=== PATIENT | female | born 1995 | race Caucasian/White ===

== ENCOUNTER 2019-01-09 12:50 | Inpatient (IN) | payer OTHER ==
--- NOTE | 2019-01-09 13:05 | EDPHY ---
H & P Source: Patient, RN/MD Exam Limitations: Clinical condition - Medical/Surgical History Hx Asthma: No Hx Chronic Respiratory Disease: No Hx Diabetes: No Hx Cardiac Disease: No Hx Renal Disease: No Hx Cirrhosis: No Hx Alcoholism: No Hx HIV/AIDS: No Hx Splenectomy or Spleen Trauma: No Other PMH: PTSD, schizoaffective - Social History Smoking Status: Never smoked Time Seen by Provider: 01/09/19 13:05 HPI/ROS: HPI: This is a 23-year-old female who presents with Chief Complaint: Psychosis, M1 hold Location: psych Quality: Psychosis, M1 hold Duration: Unknown Signs and Symptoms: + auditory hallucinations, + visual hallucinations, no suicidal ideation with a plan, no homicidal ideation, + paranoia Timing: Acute on chronic Severity: Severe Context: Patient has a history of schizoaffective disorder and PTSD presents on M1 hold from [facility] with complaints of paranoia, hallucinations, and being gravely disabled. Patient is prescribed to take Seroquel and lithium and admits to noncompliance. Patient reports that she is the "best Dr. Around and that her heart is on the right side and not the left side like other people." She is having delusions that things are present that is not witnessed by other people. Modifying Factors: None Comment: ROS: A comprehensive 10 system review of systems is otherwise negative aside from elements mentioned in the history of present illness. MEDICAL/SURGICAL/SOCIAL HISTORY: Medical history: PTSD, schizoaffective disorder Surgical history: Tonsillectomy, adenoidectomy Social history: Denies alcohol, drug, tobacco use. Unemployed. Family history noncontributory. CONSTITUTIONAL: Well-developed, well-nourished, cooperative, young adult white female, awake and alert, no obvious distress HEENT: Atraumatic and normocephalic, PERRL, EOMI. Nares patent; no rhinorrhea; no nasal mucosal edema. Tympanic membranes clear. Oropharynx clear, no exudate and moist pink mucosa. Airway patent. No lymphadenopathy. No meningismus. Cardiovascular: Normal S1/S2, regular rate, regular rhythm, without murmur rub or gallop. PULMONARY/CHEST: Symmetrical and nontender. Clear to auscultation bilaterally. Good air movement. No accessory muscle usage. ABDOMEN: Soft, nondistended, nontender, no rebound, no guarding, no peritoneal signs, no masses or organomegaly. No CVAT. EXTREMITIES: 2/2 pulses, strength 5/5, no deformities, no clubbing, no cyanosis or edema. NEUROLOGICAL: no focal neuro deficits. GCS 15. SKIN: Warm and dry, no erythema. no rash. Good capillary refill. PSYCH: Fair eye contact, + flight of ideas, tangential disorganized thought process, poor insight and judgment, + auditory hallucinations, + visual hallucinations, no suicidal ideation with a plan, no homicidal ideation, + paranoia (Miriam Wallis) Constitutional: Initial Vital Signs Temperature (C) 36.8 C 01/09/19 13:08 Heart Rate 81 01/09/19 13:08 Respiratory Rate 16 01/09/19 13:08 Blood Pressure 109/83 H 01/09/19 13:08 O2 Sat (%) 96 01/09/19 13:08 O2 Delivery Mode Room Air Allergies/Adverse Reactions: No Known Allergies Allergy (Unverified 06/24/18 15:12) Home Medications: Medication Instructions Recorded Coker Carbonate ER [Lithobid 300 900 mg PO DAILY 01/09/19 mg (*)] Quetiapine Fumarate [Seroquel] 800 mg PO DAILY 01/09/19 Medical Decision Making ED Course/Re-evaluation: Agree with M1 hold. Labs and UDS ordered. Given Zyprexa 10 mg. 1415: Urine drug screen negative. Labs reviewed and grossly unremarkable. Medically clear for mental health evaluation. 1500: Notified by mental health that patient would benefit from inpatient psychiatric admission. They are currently looking for placement. 1714: End of Shift. Signed over to Dr. Flynn pending placement. This patient was seen under the supervision of my secondary supervising physician. I evaluated care for this patient with attending. Discussed this patient with Dr. Flynn. (Miriam Wallis) 3:00 p.m. The patient has been evaluated by Mental Health. They agree with the hold that has already been placed. They will begin looking for placement. Patient has been medically cleared. 5:30 p.m. the patient has been accepted to [address] [place] [address] Sorenson. Transfer paperwork completed. (Ady Flynn) Differential Diagnosis: Differential diagnosis includes but is not limited to major depression, anxiety disorder, schizophrenia, bipolar disorder, intoxicant use, suicidal ideation, psychosis, carol. (Miriam Wallis) - Data Points Laboratory Results: Laboratory Results 01/09/19 13:35 01/09/19 13:35 Medications Given: Quetiapine Fumarate (Seroquel) 100 mg PO BID KARELY Stop: 07/08/19 20:59 Last Admin: 01/10/19 09:38 Dose: 100 mg Discontinued Medications Coker Carbonate (Lithobid) 300 mg PO BID KARELY Stop: 07/09/19 08:59 Last Admin: 01/10/19 09:38 Dose: 300 mg Olanzapine (Zyprexa Zydis) 10 mg PO EDNOW ONE Stop: 01/09/19 13:21 Last Admin: 01/09/19 18:31 Dose: 10 mg Departure - Departure Disposition: [facility] IP Clinical Impression: Schizoaffective psychosis Qualifiers: Schizoaffective disorder type: bipolar Qualified Code(s): F25.0 - Schizoaffective disorder, bipolar type Condition: Fair
[2019-01-09] MEDS ORDERED: OLANZapine DISINTEGR 5 MG TAB PO ONE (13:20)
[2019-01-09 13:58] LABS: PLATELET COUNT 239 10^3/uL (150-400)
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
--- NOTE | 2019-01-09 16:40 | ASMTTCLDSP ---
TLC Discharge Disposition Disposition: Answers: Transfer Disposition Notes: Notes: In consultation with [facility] ED physician, Ady Flynn MD, and on-call clinician, Live Leggett both concurred that pt appears to meet 27-65 criteria requiring psychiatric hospitalization as pt appears to be an imminent risk of harm to others/gravely disabled due to a mental illness condition. Pt was given the prohibited belongings list while in the ED. Discharge Concerns/Recommendations: Notes: Pt admitted to [facility] For inpatient Live Leggett AP[facility] admission, the following psychiatrist agreed to accept patient for admission to [facility] Type of Hold: Answers: M1/72-hour Hold Hold initiated by: Answers: Psychiatrist Date Signed: 01/09/2019 04:39 PM Electronically Signed By:Richelle Boyd
[2019-01-09] MEDS ORDERED: OLANZapine DISINTEGR 5 MG TAB ONE (18:23)
[2019-01-09] MEDS ORDERED: OLANZapine DISINTEGR 10 MG TAB PO PRN (20:50)
[2019-01-09] MEDS ORDERED: MAG HYDROX/AL HYDROX/SIMETH 30 ML UDCUP PO PRN (20:50)
[2019-01-09] MEDS ORDERED: MAGNESIUM HYDROXIDE 30 ML UDCUP PO PRN (20:50)
[2019-01-09] MEDS: QUEtiapine FUMARATE 100 MG TAB PO SCH (21:31)
--- NOTE | 2019-01-09 23:34 | GHP ---
[f rep st] HISTORY AND PHYSICAL DATE OF ADMISSION: 01/09/2019 CHIEF COMPLAINT: Auditory and visual hallucinations and paranoia. HISTORY OF PRESENT ILLNESS: The patient is a 23-year-old female with a past medical history of schiz oaffective disorder, who was on an M1 hold from [facility] with complaints of paranoia an d hallucinations. She is reported to be on Seroquel and lithium, but reported noncompliance to her m edical therapy. She is without any other localizing or physical complaints. [facility] her transfer to the behavioral health unit. PAST MEDICAL HISTORY: Schizoaffective disorder, PTSD. PAST SURGICAL HISTORY: Tonsillectomy, adenoidectomy. MEDICATIONS: [place], Seroquel. ALLERGIES: No known drug allergies. FAMILY HISTORY: Mother is living and reportedly has some sort of mental illness. Father is of unknown causes. SOCIAL HISTORY: Patient currently lives with her boyfriend. She has 1 son who is approximately 1 ye ar old. She denies tobacco or alcohol use. She is not currently working. She is currently on an M1 hold. REVIEW OF SYSTEMS: CONSTITUTIONAL: No complaints of any fevers or chills. ENT: No recent upper re spiratory illnesses. CARDIOVASCULAR: No complaints of any chest pains, palpitations, or syncopal ep isodes. RESPIRATORY: No complaints of shortness of breath or productive cough. GI: No nausea, vom iting, diarrhea, or constipation. : No reports of any difficulty with urination. NEUROLOGIC: No complaints of any headaches or focal weakness. HEMATOLOGIC: No history of any deep vein thrombosis or pulmonary embolism. PSYCHIATRIC: Positive for hallucinations and paranoia. ENDOCRINE: No poly uria or heat intolerance. SKIN: No report of any new skin rashes. MUSCULOSKELETAL: No focal joint pains. PHYSICAL EXAM: VITAL SIGNS: Temperature 36.8, blood pressure 109/83, heart rate 81, respirations 16 , sating 96% on room air. GENERAL: Patient appears comfortable. She is cooperative with the exam, somewhat soft-spoken at times. HEENT: Extraocular movements appear intact. No scleral icterus is n oted. NECK: Supple. No adenopathy appreciated. CHEST: Clear on auscultation with normal respirat ory effort. HEART: Regular rate and rhythm. No murmurs. ABDOMEN: Soft, nontender, nondistended. : No Romo catheter in place. EXTREMITIES: No significant pitting edema. NEUROLOGIC: Cranial nerves 2-12 appear grossly intact with 5/5 strength in extremities. LABS: White blood cell count 5, hemoglobin 14, platelets 239. Sodium 136, potassium 3.6, chloride 1 00, bicarb 25, BUN 14, creatinine 0.9, glucose of 96, AST 19, ALT 25, alkaline phosphatase 114, bilir ubin is 0.4. Beta hCG negative. Urine tox negative. Positive for lithium. ASSESSMENT AND PLAN: 1. Psychosis: The patient appears appropriate for transfer to behavioral health unit for stabilizat ion. There are no other physical complaints at this time that I can elicit from the patient to rigoberto any other active medical issues. 2. Deep venous thrombosis prophylaxis: Appears low risk as ambulatory. /[id number]/MODL
[2019-01-10] MEDS ORDERED: LITHIUM CARBONATE ER 300 MG TAB PO SCH (09:00)
[2019-01-10] MEDS: QUEtiapine FUMARATE 100 MG TAB PO SCH ×2 (09:38→20:10)
--- NOTE | 2019-01-10 10:29 | ASMTBHMTP ---
Master Treatment Plan Master Treatment Plan Answers: Mood Instability with for: Psychosis Date: 01/10/2019 Diagnosis on Admission: Schizoaffective Disorder, Bipolar type 295.70 Expected length of stay: 3-5 Days Reason for admission: Notes: Per TLC Evaluation - pt. is a 23 year old, single, female who was sent to the [facility] ED on a M1 hold initiated by her counselor at [facility]. Per M1 hold pt was recently released from in, in homeless. Presents with thought disorder, bizarre behavior, shifts from docile to hostile, staring, paranoid, history of aggressive behavior but none today. Pt. was placed on M1 hold due to grave disability. Per medical reports pt has a hx of shizoaffective disorder. Observed complaints today include: paranoia, hallucinations, and inability to care for herself/grave disability. Pt. is prescribed Seroquel and [place] and admitted to physician she is non-compliant with meds. Pt. made statement to ED staff, "I'm the best doctor around and that her heart is on the right side and the left side like other people. She is having delusions that things are present that are no witnessed by others. Pt. appeared guarded and seemed to be responding to internal stimuli during TLC evaluation. Pt. only answered in one to two words. Pt. noted to be gazing around room during interview however she denied hearing voices or responding to internal stimuli. Patient's stated presenting problems: Notes: Pt. stated she "answered few questions for psychiatrist, she thought I needed psychiatric help", adding "when she was the crazy one". Patient's goals for treatment: Notes: Pt. stated she wants to "planning on bring homeless" and "staying warm". Pt. shared she has recently become homeless Patient's strengths: Notes: Pt. stated "housekeeping, taking care of my boyfriend". Identify supports outside of hospital: Notes: Pt. stated "I don't know if I have Asperger's but my boyfriend does". Discharge criteria: Notes: Patient will demonstrate more stable mood by discharge. Initial disposition plan/considerations: Notes: Pt. stated she wants to get on social security and then move to [place], [place] where there is "not a lot of work". Pt. added later she has family in [place]. Master Treatment Plan Required Signatures Psychiatrist signature: Answers: Psychiatrist: RN on-shift signature: Answers: RN: Patient signature: Answers: Patient: Date Signed: 01/10/2019 10:28 AM Electronically Signed By:Danielle Kingsley
--- NOTE | 2019-01-10 15:22 | ASMTCMCOM ---
CM Note CM Note Notes: Pt. and CC completed MTP, pt. refused to sign, and placed in pt's chart. Pt. stated she recently became homeless and while in the hospital wants to plan for being homeless. Pt. stated she was living at her boyfriend's house, but it was "really boring". Pt. stated she wants to get on social security and move to [place], [place]. Pt. stated in [place] there is "not a lot of work". Pt. eventually stated she has family in [place]. Pt. stated she believe "people out to get me" but reports feeling safe on the unit. Pt. stated she has a son, who is almost a year old, who lives in [place], [place]. Pt. stated she does not want to continue working with her psychiatrist. Pt. stated she is willing to see someone else in [place]. Pt. presents as alert, disorganized, inconsistent eye contact, distractible, shaky hands, and mostly cooperative. Staff report pt. sleeping 9.5 hours. CC to have pt. sign [facility] to setup follow up appointments with a new psychiatrist or therapist. Date Signed: 01/10/2019 03:21 PM Electronically Signed By:Danielle Kingsley
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
[2019-01-10] MEDS: LORazepam 0.5 MG TAB PO PRN (20:10)
[2019-01-11] MEDS: QUEtiapine FUMARATE 100 MG TAB PO SCH ×2 (08:37→21:14)
[2019-01-11] MEDS: LORazepam 0.5 MG TAB PO PRN (09:09)
--- NOTE | 2019-01-11 15:50 | ASMTCMCOM ---
CM Note CM Note Notes: Pt. reports feeling "really good". Pt. stated she slept "really, really good". Pt. stated she is "absolutly" getting enough to eat. Pt. reports attending groups. Pt. reports no issues with her current medications, adding "body actually asks for it". Pt. stated she is "receiving strong guidence" but declined to say from whom. Pt. stated she "heard my mission to go home tonight". Pt. at first stated she would go to her boyfriend's place, but changed her mind and stated she would be "supervised on the streets" adding "my friends" would supervise her. Pt. stated she needs "a black coat to read in". Pt. denied SI, HI, AVH and paranoia. Pt. stated "I'm really okay". Pt. spoke to CC later and stated "I need to get back to my [place]". Pt. presents as alert, disorganized, delusional, staring at times, having dramatic gestures while talking, soft spoken at times, and cooperative. Staff report pt. sleeping 8.5 hours and being medication compliant. CC to obtain ROIs for [facility] and Pratima Sullivan (therapist) and to make follow up appointments. It maybe helpful to speak with pt's mother who lives in [place] with pt's son. Date Signed: 01/11/2019 03:49 PM Electronically Signed By:Danielle Kingsley
--- NOTE | 2019-01-11 17:28 | SOAPPROG ---
SOAP Progress Note Assessment/Plan: Assessment: 23 yo unemployed, homeless woman with prior dx of schizoaffective do admitted in June 2018 presented to ED with bizarre thoughts, delusions and paranoia. [facility] and admits to non- compliance with meds. Plan: 01/11/19 17:24 1. Patient says she needs to get to "[place]." 2. MD stopped lithium d/t elevated Li level x 2. Will repeat level tomorrow. Patient does not show any signs of lithium toxicity. 3. EKG pending 4. Patient has been taking Seroquel and PRN Ativan and Zyprexa. 5. [facility] expires on 01/12 Subjective: Patient more present in milieu. MD attempted to talk to patient several times and she turned around and walked the other way each time. Patient told RN "my foot is telling me I need to be on back on my lithium." Patient told CC that she needs to "get back to my [place]." Patient also told staff she wants to move to [place] after discharge. Patient's MOC lives in [place] with patient's 12 month old son. Objective: Vital Signs Temp Pulse Resp BP Pulse Ox 36.7 C 84 15 83/45 L 96 01/11/19 06:00 01/11/19 06:00 01/11/19 06:00 01/11/19 06:00 01/11/19 06:00 MSE: Affect: Odd Mood: No response TP: Disorganized, illogical TC: Delusional, paranoid, no SI/HI Insight/Judgment: Impaired - Time Spent With Patient Time Spent With Patient: 15" - Pending Discharge Pending Discharge Within 24 Hours: No Pending Discharge Within 48 Hours: No ICD10 Worksheet Patient Problems: Problems Problem Status Onset Schizoaffective disorder Chronic PTSD (post-traumatic stress disorder) Chronic
[2019-01-12] MEDS: MELATONIN 3 MG TAB PO PRN ×2 (00:11→20:07)
[2019-01-12] MEDS: QUEtiapine FUMARATE 100 MG TAB PO SCH ×2 (07:58→20:07)
[2019-01-12] MEDS: LORazepam 0.5 MG TAB PO PRN (07:58)
--- NOTE | 2019-01-12 08:24 | SOAPPROG ---
SOAP Progress Note Assessment/Plan: Assessment: Schizoaffective Disorder, Bipolar Type. No improvement noted (see subjective/ objective note). Patient is not safe to discharge at this time as patient continues to exhibit signs of psychosis, and express psychosis symptoms. Patient requires continued inpatient care because of current psychosis, and requires inpatient level of care to stabilize in order to no longer be gravely disabled due to mental illness. Patient is unable to communicate her basic needs, unable to test reality, and continues to require prompting and direction from staff for ADLs. Patient exhibits inability to provide for herself, neglecting self-care, withdrawn from social interactions, currently shows inability to maintain any appropriate aspect of personal responsibility as an adult, patient becomes agitated and irritable easily and continues exhibited irritable behavior toward staff. Support system has inability to manage functional impairment at lower level of care. Patient could benefit from continued inpatient hospitalization for crisis stabilization, safety, and medication evaluation. Plan: 1. Psychotropic medications: After reviewing options, risks, and benefits patient agrees to continue current medications. No medication changes at this time as more time is needed to determine ongoing tolerability and efficacy. Plan is to continue to observe patient for response and side effects from medications, and ongoing monitoring and evaluation. 2. Review with patient informed consent and recommendations for psychotropic medication treatment listed below 3. Labs: no additional labs at this time 4. Therapy: continue milieu and group therapy 5. Further investigation including gathering information from patients relatives and review of past case records to inform treatment plan. 6. Safety/Wellness plan and follow-up outpatient appointments to be established prior to discharge. Next steps are for patient to meet with child care cook to plan a safe discharge plan and establish outpatient services for ongoing treatment. 7. Confer with inpatient treatment team regarding treatment plan. 8. Psychosocial stressors addressed through casey saw operator 9. Legal status: M1 10. Consider discharge next week if patient is in stable condition, safe, and has a safe discharge plan. PSYCHOTROPIC MEDICATION TREATMENT INFORMED CONSENT and RECOMMENDATIONS: Review nature of condition, diagnosis, and prognosis. Review nature and purpose of psychotropic medication treatment. Review type of psychotropic medications being ordered. Review risk and benefits of psychotropic medication treatment. Review probable length of time patient will need to take medications. Review risk and benefits of not undergoing psychotropic medication treatment. Review alternative treatments to psychotropic medications. Review psychotropic medications contraindications, drug-drug interactions, side effects, and importance of reporting any side effects to a psychiatric provider or nurse during inpatient hospitalization, and upon discharge to patients psychiatric outpatient provider, primary care provider, or other health child care supervisor. Review importance of asking a nurse, psychiatric provider, or primary care provider any questions or problems concerning the psychotropic medications. Verify patient understands the information that has been provided, and understands, accepts, and agrees to psychotropic medications. Review patients safety plan and importance of patient to report to staff while hospitalized if patient is ever a danger to self/others, or unable to care for self, and upon discharge, the importance for patient to contact [facility] or [facility], or go to the nearest emergency room, if patient is ever a danger to self/others, or unable to care for self. Recommend that upon discharge patient establish medication management treatment with a psychiatric provider, establishes routine therapy appointments, and follow-up with primary care provider. Verify patient understands and agrees to these recommendations. 01/12/19 08:25 Subjective: Following up with patient for evaluation of psychosis, carol, and safety. Patient states, "I feel like I was brought here on wrongful terms. I would like to leave soon. Don't need to be here. I am not going to take medications. " Patient reports no side effects from current medications, and agrees to continue current medications. Objective: Vital Signs Temp Pulse Resp BP Pulse Ox 36.8 C 81 18 92/53 L 94 01/12/19 06:00 01/12/19 06:00 01/12/19 06:00 01/12/19 06:00 01/12/19 06:00 NURSING REPORT: Consulted with nursing for update on patients progress in treatment. Nurses report patient is not engaged in treatment, does not attend groups; slept 4 hours; expresses the following psychiatric symptoms: anxious and irritable; exhibits the following psychiatric symptoms: unable to test reality, irritable, disorganized, tangential, loose associations, nonsensical; is eating all meals, requires continued prompting and direction from staff for ADLs, and is unable to communicate her basic needs; is agreeable to scheduled medications and taking as prescribed with no report of side effects, with no s/ s of EPS/akathisia, and denies SI/HI, denies A/V hallucinations, and reports delusions. MSE: The patient is a well-nourished female looking stated chronological age. Attire is appropriate dress is casual. Grooming status is inappropriate and disheveled. Ambulation is independent. Gait is normal and coordinated. Posture is normal. Eye contact is inappropriate and staring. Motor activity is appropriate with purposeful, organized, coordinated movements; with no involuntary movements. Attitude is uncooperative, defensive and guarded at times. Patient appears attentive and relates well to this interviewer. Language production is spontaneous. Rate is pressured. Latency of response is shortened with irritable tone. Articulation is clear. Patient reports mood as okay with expansive and inappropriate affect. Patients thought process is disorganized, non-linear and illogical, with loose associations, nonsensical. Patient does not report suicidal/homicidal thoughts, ideas, or plans. Patient denies auditory, visual hallucinations. Patient reports delusions. Patient does not appear to be attending to internal stimuli. Patients attention and concentration are poor. Patient is oriented to person, place, and time. Patients insight is poor. Patients judgment is poor. - Time Spent With Patient Time Spent With Patient: 15 minutes, met with patient individually. - Pending Discharge Pending Discharge Within 24 Hours: No Pending Discharge Within 48 Hours: No ICD10 Worksheet Patient Problems: Problems Problem Status Onset Schizoaffective disorder Chronic PTSD (post-traumatic stress disorder) Chronic
[2019-01-12] MEDS ORDERED: LITHIUM CARBONATE ER 300 MG TAB PO ONE (11:00)
--- NOTE | 2019-01-13 08:08 | SOAPPROG ---
SOAP Progress Note Assessment/Plan: Assessment: Schizoaffective Disorder, Bipolar Type. No improvement noted (see subjective/ objective note). Patient is not safe to discharge at this time as patient continues to exhibit signs of psychosis, and express psychosis symptoms. Patient requires continued inpatient care because of current psychosis, and requires inpatient level of care to stabilize in order to no longer be gravely disabled due to mental illness. Patient is unable to communicate her basic needs, unable to test reality, and continues to require prompting and direction from staff for ADLs. Patient exhibits inability to provide for herself, neglecting self-care, withdrawn from social interactions, currently shows inability to maintain any appropriate aspect of personal responsibility as an adult, patient becomes agitated and irritable easily and continues exhibited irritable behavior toward staff. Support system has inability to manage functional impairment at lower level of care. Patient could benefit from continued inpatient hospitalization for crisis stabilization, safety, and medication evaluation. Plan: 1. Psychotropic medications: After reviewing options, risks, and benefits patient agrees to continue current medications. No medication changes at this time as more time is needed to determine ongoing tolerability and efficacy. Plan is to continue to observe patient for response and side effects from medications, and ongoing monitoring and evaluation. 2. Review with patient informed consent and recommendations for psychotropic medication treatment listed below 3. Labs: no additional labs at this time 4. Therapy: continue milieu and group therapy 5. Further investigation including gathering information from patients relatives and review of past case records to inform treatment plan. 6. Safety/Wellness plan and follow-up outpatient appointments to be established prior to discharge. Next steps are for patient to meet with certified social workers in health care to plan a safe discharge plan and establish outpatient services for ongoing treatment. 7. Confer with inpatient treatment team regarding treatment plan. 8. Psychosocial stressors addressed through geriatric case manager 9. Legal status: M1 10. Consider discharge next week if patient is in stable condition, safe, and has a safe discharge plan. PSYCHOTROPIC MEDICATION TREATMENT INFORMED CONSENT and RECOMMENDATIONS: Review nature of condition, diagnosis, and prognosis. Review nature and purpose of psychotropic medication treatment. Review type of psychotropic medications being ordered. Review risk and benefits of psychotropic medication treatment. Review probable length of time patient will need to take medications. Review risk and benefits of not undergoing psychotropic medication treatment. Review alternative treatments to psychotropic medications. Review psychotropic medications contraindications, drug-drug interactions, side effects, and importance of reporting any side effects to a psychiatric provider or nurse during inpatient hospitalization, and upon discharge to patients psychiatric outpatient provider, primary care provider, or other health healthcare financial analyst. Review importance of asking a nurse, psychiatric provider, or primary care provider any questions or problems concerning the psychotropic medications. Verify patient understands the information that has been provided, and understands, accepts, and agrees to psychotropic medications. Review patients safety plan and importance of patient to report to staff while hospitalized if patient is ever a danger to self/others, or unable to care for self, and upon discharge, the importance for patient to contact [facility] or [facility], or go to the nearest emergency room, if patient is ever a danger to self/others, or unable to care for self. Recommend that upon discharge patient establish medication management treatment with a psychiatric provider, establishes routine therapy appointments, and follow-up with primary care provider. Verify patient understands and agrees to these recommendations. 01/13/19 08:07 Subjective: Following up with patient for evaluation of psychosis, carol, and safety. Patient states, "I am doing so good." Patient reports no side effects from current medications, and agrees to continue current medications. Discuss other psychotropic medication options including Invega. Patient states she is only interested in continuing lithium and Seroquel. Objective: Vital Signs Temp Pulse Resp BP Pulse Ox 36.7 C 88 14 109/58 L 94 01/13/19 06:00 01/13/19 06:00 01/13/19 06:00 01/13/19 06:00 01/13/19 06:00 NURSING REPORT: Consulted with nursing for update on patients progress in treatment. Nurses report patient is not engaged in treatment, attends some groups; slept 8 hours; expresses the following psychiatric symptoms: anxious and irritable; exhibits the following psychiatric symptoms: unable to test reality, irritable, disorganized, loose associations, nonsensical, thought blocking; is eating all meals, requires continued prompting and direction from staff for ADLs, and is unable to communicate her basic needs; is agreeable to scheduled medications and taking as prescribed with no report of side effects, with no s/s of EPS/akathisia, and denies SI/HI, denies A/V hallucinations, and reports delusions. MSE: The patient is a well-nourished female looking stated chronological age. Attire is appropriate dress is casual. Grooming status is inappropriate and disheveled. Ambulation is independent. Gait is normal and coordinated. Posture is normal. Eye contact is inappropriate and staring. Motor activity is appropriate with purposeful, organized, coordinated movements; with no involuntary movements. Attitude is uncooperative, defensive and guarded at times. Patient appears distractible and does not relate well to this interviewer. Language production is spontaneous. Rate is pressured. Latency of response is shortened with irritable tone. Articulation is clear. Patient reports mood as okay with flat, constricted, and inappropriate affect. Patients thought process is disorganized, non-linear and illogical, with loose associations, nonsensical, and thought blocking. Patient does not report suicidal/homicidal thoughts, ideas, or plans. Patient denies auditory, visual hallucinations. Patient reports delusions. Patient does not appear to be attending to internal stimuli. Patients attention and concentration are poor. Patient is oriented to person, place, and time. Patients insight is poor. Patients judgment is poor. - Time Spent With Patient Time Spent With Patient: 15 minutes, met with patient individually. - Pending Discharge Pending Discharge Within 24 Hours: No Pending Discharge Within 48 Hours: No ICD10 Worksheet Patient Problems: Problems Problem Status Onset Schizoaffective disorder Chronic PTSD (post-traumatic stress disorder) Chronic
[2019-01-13] MEDS: LITHIUM CARBONATE ER 300 MG TAB PO SCH (08:09)
[2019-01-13] MEDS: QUEtiapine FUMARATE 100 MG TAB PO SCH ×2 (08:09→19:01)
[2019-01-13] MEDS: LORazepam 0.5 MG TAB PO PRN (15:42)
[2019-01-13] MEDS: MELATONIN 3 MG TAB PO PRN (19:01)
[2019-01-14] MEDS: QUEtiapine FUMARATE 300 MG TAB PO SCH ×2 (08:20→19:45)
[2019-01-14] MEDS: LITHIUM CARBONATE ER 300 MG TAB PO SCH (08:20)
--- NOTE | 2019-01-14 09:12 | SOAPPROG ---
SOAP Progress Note Assessment/Plan: Assessment: Schizoaffective Disorder, Bipolar Type. No improvement noted (see subjective/ objective note). Patient is not safe to discharge at this time as patient continues to exhibit signs of psychosis, and express psychosis symptoms. Patient requires continued inpatient care because of current psychosis, and requires inpatient level of care to stabilize to no longer be gravely disabled due to mental illness. Patient is unable to communicate her basic needs, unable to test reality, and continues to require prompting and direction from staff for ADLs. Patient exhibits inability to provide for herself, neglecting self-care, withdrawn from social interactions, currently shows inability to maintain any appropriate aspect of personal responsibility as an adult, patient becomes agitated and irritable easily and continues exhibited irritable behavior toward staff. Support system has inability to manage functional impairment at lower level of care. Patient could benefit from continued inpatient hospitalization for crisis stabilization, safety, and medication evaluation. Plan: 1. Psychotropic medications: After reviewing options, risks, and benefits patient agrees to continue current medications and agrees to increase Seroquel to 300 mg po BID. No other medication changes at this time as more time is needed to determine ongoing tolerability and efficacy. Plan is to continue to observe patient for response and side effects from medications, and ongoing monitoring and evaluation. 2. Review with patient informed consent and recommendations for psychotropic medication treatment listed below 3. Labs: no additional labs at this time 4. Therapy: continue milieu and group therapy 5. Further investigation including gathering information from patients relatives and review of past case records to inform treatment plan. 6. Safety/Wellness plan and follow-up outpatient appointments to be established prior to discharge. Next steps are for patient to meet with care management associate to plan a safe discharge plan and establish outpatient services for ongoing treatment. 7. Confer with inpatient treatment team regarding treatment plan. 8. Psychosocial stressors addressed through lining caser 9. Legal status: [facility] 10. Consider discharge next week if patient is in stable condition, safe, and has a safe discharge plan. PSYCHOTROPIC MEDICATION TREATMENT INFORMED CONSENT and RECOMMENDATIONS: Review nature of condition, diagnosis, and prognosis. Review nature and purpose of psychotropic medication treatment. Review type of psychotropic medications being ordered. Review risk and benefits of psychotropic medication treatment. Review probable length of time patient will need to take medications. Review risk and benefits of not undergoing psychotropic medication treatment. Review alternative treatments to psychotropic medications. Review psychotropic medications contraindications, drug-drug interactions, side effects, and importance of reporting any side effects to a psychiatric provider or nurse during inpatient hospitalization, and upon discharge to patients psychiatric outpatient provider, primary care provider, or other health technical healthcare consultant. Review importance of asking a nurse, psychiatric provider, or primary care provider any questions or problems concerning the psychotropic medications. Verify patient understands the information that has been provided, and understands, accepts, and agrees to psychotropic medications. Review patients safety plan and importance of patient to report to staff while hospitalized if patient is ever a danger to self/others, or unable to care for self, and upon discharge, the importance for patient to contact [facility] or [facility], or go to the nearest emergency room, if patient is ever a danger to self/others, or unable to care for self. Recommend that upon discharge patient establish medication management treatment with a psychiatric provider, establishes routine therapy appointments, and follow-up with primary care provider. Verify patient understands and agrees to these recommendations. 01/14/19 09:10 Subjective: Following up with patient for evaluation of psychosis, carol, and safety. Patient states, "I am doing good." Patient reports no side effects from current medications, and agrees to continue current medications. Patient agrees to increase Seroquel to 300 mg po BID. Patient describes her ex- boyfriend as her . Objective: Vital Signs Temp Pulse Resp BP Pulse Ox 36.7 C 75 14 87/47 L 96 01/14/19 06:00 01/14/19 06:00 01/14/19 06:00 01/14/19 06:00 01/14/19 06:00 NURSING REPORT: Consulted with nursing for update on patients progress in treatment. Nurses report patient is not engaged in treatment, attends some groups; slept 8 hours; expresses the following psychiatric symptoms: anxious and irritable; exhibits the following psychiatric symptoms: unable to test reality, irritable, disorganized, loose associations, nonsensical, thought blocking, delusional; is eating all meals, requires continued prompting and direction from staff for ADLs, and is unable to communicate her basic needs; is agreeable to scheduled medications and taking as prescribed with no report of side effects, with no s/s of EPS/akathisia, and denies SI/HI, denies A/V hallucinations, and reports delusions. MSE: The patient is a well-nourished female looking stated chronological age. Attire is appropriate dress is casual. Grooming status is inappropriate and disheveled. Ambulation is independent. Gait is normal and coordinated. Posture is normal. Eye contact is inappropriate and staring. Motor activity is appropriate with purposeful, organized, coordinated movements; with no involuntary movements. Attitude is uncooperative, defensive and guarded at times. Patient appears distractible and does not relate well to this interviewer. Language production is spontaneous. Rate is pressured. Latency of response is shortened with irritable tone. Articulation is clear. Patient reports mood as okay with flat, constricted, and inappropriate affect. Patients thought process is disorganized, non-linear and illogical, with loose associations, nonsensical, and thought blocking. Patient does not report suicidal/homicidal thoughts, ideas, or plans. Patient denies auditory, visual hallucinations. Patient reports delusions. Patient does not appear to be attending to internal stimuli. Patients attention and concentration are poor. Patient is oriented to person, place, and time. Patients insight is poor. Patients judgment is poor. - Time Spent With Patient Time Spent With Patient: 15 minutes, met with patient individually. - Pending Discharge Pending Discharge Within 24 Hours: No Pending Discharge Within 48 Hours: No ICD10 Worksheet Patient Problems: Problems Problem Status Onset Schizoaffective disorder Chronic PTSD (post-traumatic stress disorder) Chronic
[2019-01-14] MEDS: LORazepam 0.5 MG TAB PO PRN (14:05)
[2019-01-14] MEDS: MELATONIN 3 MG TAB PO PRN (19:45)
--- NOTE | 2019-01-15 07:55 | SOAPPROG ---
SOAP Progress Note Assessment/Plan: Assessment: Schizoaffective Disorder, Bipolar Type. No improvement noted (see subjective/ objective note). Patient is not safe to discharge at this time as patient continues to exhibit signs of psychosis, and express psychosis symptoms. Patient requires continued inpatient care because of current psychosis, and requires inpatient level of care to stabilize to no longer be gravely disabled due to mental illness. Patient is unable to communicate her basic needs, unable to test reality, and continues to require prompting and direction from staff for ADLs. Patient exhibits inability to provide for herself, neglecting self-care, withdrawn from social interactions, currently shows inability to maintain any appropriate aspect of personal responsibility as an adult, patient becomes agitated and irritable easily and continues exhibited irritable behavior toward staff. Support system has inability to manage functional impairment at lower level of care. Patient could benefit from continued inpatient hospitalization for crisis stabilization, safety, and medication evaluation. Plan: 1. Psychotropic medications: After reviewing options, risks, and benefits patient agrees to continue current medications and agrees to increase Seroquel to 400 mg po BID. No other medication changes at this time as more time is needed to determine ongoing tolerability and efficacy. Plan is to continue to observe patient for response and side effects from medications, and ongoing monitoring and evaluation. 2. Review with patient informed consent and recommendations for psychotropic medication treatment listed below 3. Labs: no additional labs at this time 4. Therapy: continue milieu and group therapy 5. Further investigation including gathering information from patients relatives and review of past case records to inform treatment plan. 6. Safety/Wellness plan and follow-up outpatient appointments to be established prior to discharge. Next steps are for patient to meet with childcare teacher to plan a safe discharge plan and establish outpatient services for ongoing treatment. 7. Confer with inpatient treatment team regarding treatment plan. 8. Psychosocial stressors addressed through piano case maker 9. Legal status: [facility] 10. Consider discharge next week if patient is in stable condition, safe, and has a safe discharge plan. PSYCHOTROPIC MEDICATION TREATMENT INFORMED CONSENT and RECOMMENDATIONS: Review nature of condition, diagnosis, and prognosis. Review nature and purpose of psychotropic medication treatment. Review type of psychotropic medications being ordered. Review risk and benefits of psychotropic medication treatment. Review probable length of time patient will need to take medications. Review risk and benefits of not undergoing psychotropic medication treatment. Review alternative treatments to psychotropic medications. Review psychotropic medications contraindications, drug-drug interactions, side effects, and importance of reporting any side effects to a psychiatric provider or nurse during inpatient hospitalization, and upon discharge to patients psychiatric outpatient provider, primary care provider, or other health health and social care teacher. Review importance of asking a nurse, psychiatric provider, or primary care provider any questions or problems concerning the psychotropic medications. Verify patient understands the information that has been provided, and understands, accepts, and agrees to psychotropic medications. Review patients safety plan and importance of patient to report to staff while hospitalized if patient is ever a danger to self/others, or unable to care for self, and upon discharge, the importance for patient to contact [facility] or [facility], or go to the nearest emergency room, if patient is ever a danger to self/others, or unable to care for self. Recommend that upon discharge patient establish medication management treatment with a psychiatric provider, establishes routine therapy appointments, and follow-up with primary care provider. Verify patient understands and agrees to these recommendations. 01/15/19 07:54 Subjective: Following up with patient for evaluation of psychosis, carol, and safety. Patient states, "I am doing pretty good." Patient reports no side effects from current medications, and agrees to continue current medications. Patient agrees to increase Seroquel to 400 mg po BID. Patient continues to refer to her ex-boyfriend as her . Objective: Vital Signs Temp Pulse Resp BP Pulse Ox 36.5 C 85 14 101/59 L 97 01/15/19 06:00 01/15/19 06:00 01/15/19 06:00 01/15/19 06:00 01/15/19 06:00 NURSING REPORT: Consulted with nursing for update on patients progress in treatment. Nurses report patient is not engaged in treatment, attends some groups; slept 8 hours; expresses the following psychiatric symptoms: anxious and irritable; exhibits the following psychiatric symptoms: unable to test reality, irritable, disorganized, loose associations, nonsensical, thought blocking; is eating all meals, requires continued prompting and direction from staff for ADLs, and is unable to communicate her basic needs; is agreeable to scheduled medications and taking as prescribed with no report of side effects, with no s/s of EPS/akathisia, and denies SI/HI, denies A/V hallucinations, and reports delusions. MSE: The patient is a well-nourished female looking stated chronological age. Attire is appropriate dress is casual. Grooming status is inappropriate and disheveled. Ambulation is independent. Gait is normal and coordinated. Posture is normal. Eye contact is inappropriate and staring. Motor activity is appropriate with purposeful, organized, coordinated movements; with no involuntary movements. Attitude is uncooperative, defensive and guarded at times. Patient appears distractible and does not relate well to this interviewer. Language production is spontaneous. Rate is hesitant. Latency of response is prolonged. Articulation is clear. Patient reports mood as okay with flat, constricted, and inappropriate affect. Patients thought process is disorganized, non-linear and illogical, with loose associations, nonsensical, and thought blocking. Patient does not report suicidal/homicidal thoughts, ideas, or plans. Patient denies auditory, visual hallucinations. Patient reports delusions. Patient does not appear to be attending to internal stimuli. Patients attention and concentration are poor. Patient is oriented to person, place, and time. Patients insight is poor. Patients judgment is poor. - Time Spent With Patient Time Spent With Patient: 15 minutes, met with patient individually. - Pending Discharge Pending Discharge Within 24 Hours: No Pending Discharge Within 48 Hours: No ICD10 Worksheet Patient Problems: Problems Problem Status Onset Schizoaffective disorder Chronic PTSD (post-traumatic stress disorder) Chronic
[2019-01-15] MEDS: LITHIUM CARBONATE ER 300 MG TAB PO SCH (07:59)
[2019-01-15] MEDS: QUEtiapine FUMARATE 200 MG TAB PO SCH ×2 (08:17→19:04)
[2019-01-15] MEDS: LORazepam 0.5 MG TAB PO PRN (11:19)
--- NOTE | 2019-01-15 14:38 | SOAPPROG ---
SOAP Progress Note Assessment/Plan: Assessment: Left heel pain possibly due to overuse. She reports that appears to be improving. There is no indication for imaging. Observe for resolution. Acetaminophen as needed. 01/15/19 14:37 Subjective: Asked to see patient about heel pain. She reports she has had pain on the lateral aspect of her left heel. She reports she has had increased walking lately and that she wears [employer] sneakers. She denies any discrete injury. She reports that the heel pain has been improving. Objective: Vital Signs Temp Pulse Resp BP Pulse Ox 36.5 C 85 14 101/59 L 97 01/15/19 06:00 01/15/19 06:00 01/15/19 06:00 01/15/19 06:00 01/15/19 06:00 Physical Exam - Physical Exam General Appearance: WD/WN, alert, no apparent distress Respiratory: No respiratory distress, No accessory muscle use Skin: normal color, warm/dry, other (Few superficial scratches and tattoos.) Extremities: other (Right heel without point tenderness. No bruising.), No pedal edema Neuro/Psych: No abnormal gait ICD10 Worksheet Patient Problems: Problems Problem Status Onset Schizoaffective disorder Chronic PTSD (post-traumatic stress disorder) Chronic
--- NOTE | 2019-01-16 06:56 | SOAPPROG ---
SOAP Progress Note Assessment/Plan: Assessment: Schizoaffective Disorder, Bipolar Type. No improvement noted (see subjective/ objective note). Patient is not safe to discharge at this time as patient continues to exhibit signs of psychosis, and express psychosis symptoms. Patient requires continued inpatient care because of current psychosis, and requires inpatient level of care to stabilize to no longer be gravely disabled due to mental illness. Patient is unable to communicate her basic needs, unable to test reality, and continues to require prompting and direction from staff for ADLs. Patient exhibits inability to provide for herself, neglecting self-care, withdrawn from social interactions, currently shows inability to maintain any appropriate aspect of personal responsibility as an adult, patient becomes agitated and irritable easily and continues exhibited irritable behavior toward staff. Support system has inability to manage functional impairment at lower level of care. Patient could benefit from continued inpatient hospitalization for crisis stabilization, safety, and medication evaluation. Plan: 1. Psychotropic medications: After reviewing options, risks, and benefits patient agrees to continue current medications. No medication changes at this time as more time is needed to determine ongoing tolerability and efficacy. Plan is to continue to observe patient for response and side effects from medications, and ongoing monitoring and evaluation. 2. Review with patient informed consent and recommendations for psychotropic medication treatment listed below 3. Labs: no additional labs at this time 4. Therapy: continue milieu and group therapy 5. Further investigation including gathering information from patients relatives and review of past case records to inform treatment plan. 6. Safety/Wellness plan and follow-up outpatient appointments to be established prior to discharge. Next steps are for patient to meet with field care advocate to plan a safe discharge plan and establish outpatient services for ongoing treatment. 7. Confer with inpatient treatment team regarding treatment plan. 8. Psychosocial stressors addressed through special education case manager 9. Legal status: [facility] 10. Consider discharge next week if patient is in stable condition, safe, and has a safe discharge plan. PSYCHOTROPIC MEDICATION TREATMENT INFORMED CONSENT and RECOMMENDATIONS: Review nature of condition, diagnosis, and prognosis. Review nature and purpose of psychotropic medication treatment. Review type of psychotropic medications being ordered. Review risk and benefits of psychotropic medication treatment. Review probable length of time patient will need to take medications. Review risk and benefits of not undergoing psychotropic medication treatment. Review alternative treatments to psychotropic medications. Review psychotropic medications contraindications, drug-drug interactions, side effects, and importance of reporting any side effects to a psychiatric provider or nurse during inpatient hospitalization, and upon discharge to patients psychiatric outpatient provider, primary care provider, or other health healthcare economics manager. Review importance of asking a nurse, psychiatric provider, or primary care provider any questions or problems concerning the psychotropic medications. Verify patient understands the information that has been provided, and understands, accepts, and agrees to psychotropic medications. Review patients safety plan and importance of patient to report to staff while hospitalized if patient is ever a danger to self/others, or unable to care for self, and upon discharge, the importance for patient to contact [facility] or [facility], or go to the nearest emergency room, if patient is ever a danger to self/others, or unable to care for self. Recommend that upon discharge patient establish medication management treatment with a psychiatric provider, establishes routine therapy appointments, and follow-up with primary care provider. Verify patient understands and agrees to these recommendations. 01/16/19 06:55 Subjective: Following up with patient for evaluation of psychosis, carol, and safety. Patient states, "I am doing so good." Patient reports no side effects from current medications, and agrees to continue current medications. Patient continues to refer to her ex-boyfriend as her . Objective: Vital Signs Temp Pulse Resp BP Pulse Ox 37 C 86 14 105/65 96 01/16/19 06:00 01/16/19 06:00 01/16/19 06:00 01/16/19 06:00 01/16/19 06:00 NURSING REPORT: Consulted with nursing for update on patients progress in treatment. Nurses report patient is not engaged in treatment, attends some groups; slept 8 hours; expresses the following psychiatric symptoms: anxious and irritable; exhibits the following psychiatric symptoms: unable to test reality, irritable, disorganized, loose associations, nonsensical, thought blocking; is eating all meals, requires continued prompting and direction from staff for ADLs, and is unable to communicate her basic needs; is agreeable to scheduled medications and taking as prescribed with no report of side effects, with no s/s of EPS/akathisia, and denies SI/HI, denies A/V hallucinations, and reports delusions. MSE: The patient is a well-nourished female looking stated chronological age. Attire is appropriate dress is casual. Grooming status is inappropriate and disheveled. Ambulation is independent. Gait is normal and coordinated. Posture is normal. Eye contact is inappropriate and staring. Motor activity is appropriate with purposeful, organized, coordinated movements; with no involuntary movements. Attitude is uncooperative, defensive and guarded at times. Patient appears distractible and does not relate well to this interviewer. Language production is spontaneous. Rate is hesitant. Latency of response is prolonged. Articulation is clear. Patient reports mood as okay with flat, constricted, and inappropriate affect. Patients thought process is disorganized, non-linear and illogical, with loose associations, nonsensical, and thought blocking. Patient does not report suicidal/homicidal thoughts, ideas, or plans. Patient denies auditory, visual hallucinations. Patient reports delusions. Patient does not appear to be attending to internal stimuli. Patients attention and concentration are poor. Patient is oriented to person, place, and time. Patients insight is poor. Patients judgment is poor. - Time Spent With Patient Time Spent With Patient: 15 minutes, met with patient individually. - Pending Discharge Pending Discharge Within 24 Hours: No Pending Discharge Within 48 Hours: No ICD10 Worksheet Patient Problems: Problems Problem Status Onset Schizoaffective disorder Chronic PTSD (post-traumatic stress disorder) Chronic
[2019-01-16] MEDS: LITHIUM CARBONATE ER 300 MG TAB PO SCH (08:06)
[2019-01-16] MEDS: QUEtiapine FUMARATE 200 MG TAB PO SCH ×2 (08:06→19:04)
--- NOTE | 2019-01-16 12:42 | ASMTCMCOM ---
CM Note CM Note Notes: Pt. reports wanting to be "released without my boyfriend". Pt. stated she "just want to leave". Pt. stated she plans to go be with her other boyfriend who lives in [place]. Pt. then stated she plans to stay in [place] with friends. Pt. stated she completed her "survey". Pt. stated she is able to pay for her medications, then stated she can't afford her medications. CC provided pt with a GoodRx card. Pt. stated she "slept really good". Pt. reports no issues with her current medications. Pt. stated "absolutly not" when asked if she needed anything else from the CC. Pt. denied SI, HI, AVH and paranoia. Pt. presents as alert, guarded, whispering at times, good eye contact, unkempt, and mostly cooperative. Staff report pt. sleeping 10 hours and being medication compliant. Pt. to stay over weekend. Follow up appointments will be scheduled after pt's expected length of stay is determined. Date Signed: 01/16/2019 12:42 PM Electronically Signed By:Danielle Kingsley
[2019-01-16] MEDS: LORazepam 0.5 MG TAB PO PRN (14:17)
[2019-01-17] MEDS: QUEtiapine FUMARATE 200 MG TAB PO SCH ×2 (07:47→19:18)
[2019-01-17] MEDS: LITHIUM CARBONATE ER 300 MG TAB PO SCH (07:47)
--- NOTE | 2019-01-17 14:30 | ASMTCMCOM ---
CM Note CM Note Notes: Pt. reports feeling "really good". Pt. stated she slept "really good, good dreams". Pt. reports getting enough to eat and is not attending groups. Pt. reports no issues with her current medications. Pt. reports no issues while on the unit. Pt. stated she plans to stay with her boyfriend in [place], in his apartment. Pt. stated her boyfriend, Horacio, can pick her up on Saturday. Pt. stated her boyfriend is currently in [place], [place] (where pt's son lives) and will return Saturday or Saturday. Pt. denied SI, HI, AVH and paranoia. Pt. presents as alert, disorganized, passive at times, soft spoken, lacking eye contact, and cooperative. Staff report pt. sleeping 9.5 hours and being medication compliant. Pt's provider recommended a residential program with [facility] for pt's follow up. Date Signed: 01/17/2019 02:30 PM Electronically Signed By:Danielle Kingsley
[2019-01-17] MEDS: LORazepam 0.5 MG TAB PO PRN (15:28)
--- NOTE | 2019-01-17 17:17 | SOAPPROG ---
SOAP Progress Note Assessment/Plan: Assessment: 23 yo unemployed, homeless woman with prior dx of schizoaffective do admitted in June 2018 presented to ED with bizarre thoughts, delusions and paranoia. Patient was recently d/c'd from another [facility] hospital and admits to non- compliance with meds. Per Live Leggett's note from 01/16/19: 01/16/19 06:55 Subjective: Following up with patient for evaluation of psychosis, carol, and safety. Patient states, "I am doing so good." Patient reports no side effects from current medications, and agrees to continue current medications. Patient continues to refer to her ex-boyfriend as her . WEEKEND PLAN: 01/17/19 17:16 1. MD ordered EKG last weekend for this patient who was admitted with elevated lithium levels. MD can't find any report that EKG was completed. Will re-order EKG for Saturday (next available time they can be done on unit). 2. MD reviewed records from [facility], where patient was recently treated by Annalise Ferrera MD. Dr. Ferrera wrote d/c prescription for [place] 900mg daily, however, there were no notes from MD that indicated why lithium was prescribed. This MD has seen patient during this admission and previous admission in 06/2018 and patient did not exhibit any s/s of carol. She did not have decreased need for sleep, increased goal-directed activity, racing thoughts, pressured speech, grandiose delusions or elated/elevated mood. There is no report from collateral sources that indicate patient had any of these symptoms for sufficient duration in the past to warrant a diagnosis of bipolar or carol. MD would like to review records from [facility] and/or [facility] to determine if the patient's current diagnosis of schizoaffective disorder, bipolar type is actually warranted and whether or not lithium is likely to improve any of the patient's symptoms. As this medication can carry significant SE's and risks, including renal insufficiency and failure, and given that patient was admitted with dangerously high levels of lithium, it would be prudent to determine if patient can be effectively and safely treated with this medication. Even though patient agrees to take this medication, it may not be safe or prudent to prescribe it. 3. [place] level is ordered for tomorrow. 4. Patient remains disorganized, illogical, delusional, paranoid and psychotic, despite rapid titration of her Seroquel from 200mg TDD on 01/11/19 to 800mg TDD by 01/16/19. Seroquel may not be the most effective antipsychotic for this patient or she may need more time on meds to stabilize. 5. [facility] Subjective: Report from Live Leggett indicates patient told him she is only willing to consider taking [place] and Seroquel. MD noted that patient was on Olanzapine during her last hospitalization and seemed to be less psychotic and delusional when she was discharged after a week on that medication. MD recommends obtaining medical records from [facility] and [facility] to determine what type of response providers at these facilities observed on her current med regimen. Patient demonstrates little insight into the nature or severity of her mental illness. She doesn't believe she needs to be in hospital. Based on fact that patient stopped taking meds as prescribed as soon as she left [facility], she remains at increased risk of relapse. Objective: Vital Signs Temp Pulse Resp BP Pulse Ox 36.6 C 96 14 102/53 L 99 01/17/19 06:00 01/17/19 06:00 01/17/19 06:00 01/17/19 06:00 01/17/19 06:00 MSE: Affect: Pleasant Mood: "Fine" TP: Disorganized, illogical TC: Denies any SI/HI, delusional (refers to BF as "" and alternately says he lives in [place] and [place]) Insight/Judgment: Impaired - Time Spent With Patient Time Spent With Patient: 15" - Pending Discharge Pending Discharge Within 24 Hours: No Pending Discharge Within 48 Hours: No ICD10 Worksheet Patient Problems: Problems Problem Status Onset Schizoaffective disorder Chronic PTSD (post-traumatic stress disorder) Chronic
[2019-01-18] MEDS: QUEtiapine FUMARATE 200 MG TAB PO SCH ×2 (08:33→19:34)
[2019-01-18] MEDS: LITHIUM CARBONATE ER 300 MG TAB PO SCH (08:34)
--- NOTE | 2019-01-18 11:44 | ASMTCMCOM ---
CM Note CM Note Notes: Pt. reports feeling "10 out of 10". Pt. stated she slept "perfect". Pt. reports getting enough to eat and "went to all of them [groups]". Pt. stated she "love my lithium", adding she would like to take lithium at night, along with in the morning. Pt. denied SI, HI, AVH and paranoia. Pt. stated her boyfriend, Horacio, will return from [place] on Saturday. Pt. stated Horacio can pick her up on "saturday or saturday". Pt. stated provider can meet with Horacio. Pt. reports "my hallucinations yesterday were ghosts that were trying to push me into another dimension". Pt. presents as alert, disorganized, childlike at times, fair eye contact, and cooperative. Staff report pt. sleeping 9 hours and being medication compliant. CC to discuss pt's estimated length of stay in the hospital and then reach out to [facility] for a follow up appointment. CC to potentially connect pt with the [facility] residential program. Date Signed: 01/18/2019 11:43 AM Electronically Signed By:Danielle Kingsley
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
--- NOTE | 2019-01-18 15:40 | SOAPPROG ---
SOAP Progress Note Assessment/Plan: Assessment: 23 yo unemployed, homeless woman with prior dx of schizoaffective do admitted in June 2018 presented to ED with bizarre thoughts, delusions and paranoia. Patient was recently d/c'd from another [facility] and admits to non- compliance with meds. Per Live Leggett's note from 01/16/19: 01/16/19 06:55 Subjective: Following up with patient for evaluation of psychosis, carol, and safety. Patient states, "I am doing so good." Patient reports no side effects from current medications, and agrees to continue current medications. Patient continues to refer to her ex-boyfriend as her . WEEKEND PLAN: 01/17/19 17:16 1. MD ordered EKG last weekend for this patient who was admitted with elevated lithium levels. MD can't find any report that EKG was completed. Will re-order EKG for Saturday (next available time they can be done on unit). 2. MD reviewed records from [facility], where patient was recently treated by Annalise Ferrera MD. Dr. Ferrera wrote d/c prescription for [place] 900mg daily, however, there were no notes from MD that indicated why lithium was prescribed. This MD has seen patient during this admission and previous admission in 06/2018 and patient did not exhibit any s/s of carol. She did not have decreased need for sleep, increased goal-directed activity, racing thoughts, pressured speech, grandiose delusions or elated/elevated mood. There is no report from collateral sources that indicate patient had any of these symptoms for sufficient duration in the past to warrant a diagnosis of bipolar or carol. MD would like to review records from [facility] and/or [facility] to determine if the patient's current diagnosis of schizoaffective disorder, bipolar type is actually warranted and whether or not lithium is likely to improve any of the patient's symptoms. As this medication can carry significant SE's and risks, including renal insufficiency and failure, and given that patient was admitted with dangerously high levels of lithium, it would be prudent to determine if patient can be effectively and safely treated with this medication. Even though patient agrees to take this medication, it may not be safe or prudent to prescribe it. 3. [place] level is ordered for tomorrow. 4. Patient remains disorganized, illogical, delusional, paranoid and psychotic, despite rapid titration of her Seroquel from 200mg TDD on 01/11/19 to 800mg TDD by 01/16/19. Seroquel may not be the most effective antipsychotic for this patient or she may need more time on meds to stabilize. 5. STC 01/18/19 15:21 1. EKG pending. 2. Repeat lithium level was 0.8 on 01/18/19. 3. Patient completely confused, disorganized, unable to have rational conversation about discharge planning. 4. MD attempted to discuss risks associated with lithium including risk of toxicity if too much is ingested or other factors contribute to hemoconcentration such as dehydration. Patient could not verbalize an adequate understanding of these risks even after MD explained them to her. MD will try to contact outpatient providers tomorrow to discuss whether patient is appropriate candidate for treatment for lithium or if other options would be more beneficial and carry less risk fo harm for patient. Patient says she "loves " lithium and wants to stay on the medication. MD is not satisfied she fully understands the risks and potential adverse effects. 5. [facility] Subjective: Patient is standing in front of her mirror brushing her hair. MD is accompanied by RN during visit with patient. Selina states that she's been "going through a really difficult breakup" recently. She was hoping to discharge when her "boyfriend" arrives from [place] and stay with him. However, now she wants to know if she can discharge "by myself." Patient has provided many different stories about her "boyfriend," "" and "ex-" to staff on unit, so MD has no idea what story is accurate. Objective: Vital Signs Temp Pulse Resp BP Pulse Ox 38.8 C H 82 16 90/61 L 94 01/18/19 06:00 01/18/19 06:00 01/18/19 06:00 01/18/19 06:00 01/18/19 06:00 MSE: Affect: Bizarre, child-like at times Mood: "Good" TP: Disorganized, illogical TC: No SI/HI, persistent delusions, paranoia Insight/Judgment: Impaired - Time Spent With Patient Time Spent With Patient: 20" - Pending Discharge Pending Discharge Within 24 Hours: No Pending Discharge Within 48 Hours: No ICD10 Worksheet Patient Problems: Problems Problem Status Onset Schizoaffective disorder Chronic PTSD (post-traumatic stress disorder) Chronic
[2019-01-18] MEDS: MELATONIN 3 MG TAB PO PRN (19:35)
[2019-01-19] MEDS: QUEtiapine FUMARATE 200 MG TAB PO SCH ×2 (08:15→18:30)
[2019-01-19] MEDS: LITHIUM CARBONATE ER 300 MG TAB PO SCH (08:15)
--- NOTE | 2019-01-19 12:49 | CPEKG ---
Test Reason : OPEN Blood Pressure : / mmHG Vent. Rate : 080 BPM Atrial Rate : 080 BPM P-R Int : 160 ms QRS Dur : 094 ms QT Int : 396 ms P-R-T Axes : 052 059 048 degrees QTc Int : 457 ms SINUS RHYTHM Confirmed by Allan Bee ([id number] on 01/19/2019 12:49:05 PM Referred By: Live Leggett Confirmed By:Allan Bee
--- NOTE | 2019-01-19 12:49 | SOAPPROG ---
SOAP Progress Note Assessment/Plan: Assessment: 23 yo unemployed, homeless woman with prior dx of schizoaffective do admitted in June 2018 presented to ED with bizarre thoughts, delusions and paranoia. Patient was recently d/c'd from another [facility] and admits to non- compliance with meds. Per Live Leggett's note from 01/16/19: 01/16/19 06:55 Subjective: Following up with patient for evaluation of psychosis, carol, and safety. Patient states, "I am doing so good." Patient reports no side effects from current medications, and agrees to continue current medications. Patient continues to refer to her ex-boyfriend as her . WEEKEND PLAN: 01/17/19 17:16 1. MD ordered EKG last weekend for this patient who was admitted with elevated lithium levels. MD can't find any report that EKG was completed. Will re-order EKG for Saturday (next available time they can be done on unit). 2. MD reviewed records from [facility], where patient was recently treated by Annalise Ferrera MD. Dr. Ferrera wrote d/c prescription for [place] 900mg daily, however, there were no notes from MD that indicated why lithium was prescribed. This MD has seen patient during this admission and previous admission in 06/2018 and patient did not exhibit any s/s of carol. She did not have decreased need for sleep, increased goal-directed activity, racing thoughts, pressured speech, grandiose delusions or elated/elevated mood. There is no report from collateral sources that indicate patient had any of these symptoms for sufficient duration in the past to warrant a diagnosis of bipolar or carol. MD would like to review records from [facility] and/or [facility] to determine if the patient's current diagnosis of schizoaffective disorder, bipolar type is actually warranted and whether or not lithium is likely to improve any of the patient's symptoms. As this medication can carry significant SE's and risks, including renal insufficiency and failure, and given that patient was admitted with dangerously high levels of lithium, it would be prudent to determine if patient can be effectively and safely treated with this medication. Even though patient agrees to take this medication, it may not be safe or prudent to prescribe it. 3. [place] level is ordered for tomorrow. 4. Patient remains disorganized, illogical, delusional, paranoid and psychotic, despite rapid titration of her Seroquel from 200mg TDD on 01/11/19 to 800mg TDD by 01/16/19. Seroquel may not be the most effective antipsychotic for this patient or she may need more time on meds to stabilize. 5. [facility] 01/18/19 15:21 1. EKG pending. 2. Repeat lithium level was 0.8 on 01/18/19. 3. Patient completely confused, disorganized, unable to have rational conversation about discharge planning. 4. MD attempted to discuss risks associated with lithium including risk of toxicity if too much is ingested or other factors contribute to hemoconcentration such as dehydration. Patient could not verbalize an adequate understanding of these risks even after MD explained them to her. MD will try to contact outpatient providers tomorrow to discuss whether patient is appropriate candidate for treatment for lithium or if other options would be more beneficial and carry less risk fo harm for patient. Patient says she "loves " lithium and wants to stay on the medication. MD is not satisfied she fully understands the risks and potential adverse effects. 5. [facility] 01/19/19 12:41 1. EKG results were NSR. No EKG changes noted. 2. Patient remains psychotic, paranoid and delusional. She told staff she didn' t want to talk to MD and would only take meds from "the other doctor" because she thought those meds were "better." Patient clearly unable to make informed decisions about medications. 3. MD recommends following course of action: -D/C [place] d/t patient not meeting clear criteria for use of mood stabilizer ( no evidence of carol during either [facility] admission) -Clear risk of lithium associated with noncompliance which patient has demonstrated in past (admission lithium level was 1.8) -Patient has demonstrated that she doesn't understand the risks or SE's of this medication and therefore is unlikely to avoid lithium toxicity or have regular blood levels checked - Would advise changing to more effective antipsychotic medication if patient continues to show lack of significant improvement in psychotic sxs this week 4. MD will defer to patient's primary provider, Live Leggett [facility], to coordinate any med changes with patient's outpatient providers at [facility] (Dr. Sullivan). This MD was unable to contact Dr. Sullivan over weekend or today d/t Pres's hol. 5. ST Subjective: Patient refused to meet with psychiatrist. She also told staff she doesn't want to take meds from this MD because the meds she was getting from her primary provider, Live Leggett, are "better." Patient has no insight into her medications or their risks and benefits. She remains acutely psychotic, paranoid and out of touch with reality. These symptoms have not significantly improved since admission. Objective: Vital Signs Temp Pulse Resp BP Pulse Ox 37 C 72 14 90/47 L 96 01/19/19 06:00 01/19/19 06:00 01/19/19 06:00 01/19/19 06:00 01/19/19 06:00 MSE: Affect: Child-like Mood: "OK" TP: Disorganized, irrational TC: Denies any SI/HI, still has paranoid delusions, impaired reality testing Insight/ Judgment: Impaired - Time Spent With Patient Time Spent With Patient: 5" - Pending Discharge Pending Discharge Within 24 Hours: No Pending Discharge Within 48 Hours: No ICD10 Worksheet Patient Problems: Problems Problem Status Onset Schizoaffective disorder Chronic PTSD (post-traumatic stress disorder) Chronic
--- NOTE | 2019-01-19 13:35 | ASMTCMCOM ---
CM Note CM Note Notes: Pt. reports feeling "really good". Pt. stated she is "really looking forward to leaving". Pt. stated she slept "the night through with perfect dreams". Pt. stated "other medications are better than these", adding she likes the medications from the other hospital doctor better. Pt. stated her boyfriend might be able to pick her up today, stating "want to leave today". Pt. denied any issues while on the unit. Pt. reports no concerns about discharges. Pt. denied SI, HI, AVH and paranoia. Pt. presents as alert, disorganized, fair eye contact, delusional, and cooperative. Staff report pt. sleeping 8 hours and being medication compliant. CC reached out to [facility] about pt possibly going to [facility]. [facility] stated [facility] doesn't have any beds available currently. Date Signed: 01/19/2019 01:32 PM Electronically Signed By:Danielle Kingsley
[2019-01-19] MEDS: MELATONIN 3 MG TAB PO PRN (18:30)
--- NOTE | 2019-01-20 07:41 | SOAPPROG ---
SOAP Progress Note Assessment/Plan: Assessment: Schizoaffective Disorder, Bipolar Type. No improvement noted (see subjective/ objective note). Patient is not safe to discharge at this time as patient continues to exhibit signs of psychosis, and express psychosis symptoms. Patient requires continued inpatient care because of current psychosis, and requires inpatient level of care to stabilize to no longer be gravely disabled due to mental illness. Patient is unable to communicate her basic needs, unable to test reality, and continues to require prompting and direction from staff for ADLs. Patient exhibits inability to provide for herself, neglecting self-care, withdrawn from social interactions, currently shows inability to maintain any appropriate aspect of personal responsibility as an adult, patient becomes agitated and irritable easily and continues exhibited irritable behavior toward staff. Support system has inability to manage functional impairment at lower level of care. Patient could benefit from continued inpatient hospitalization for crisis stabilization, safety, and medication evaluation. Plan: 1. Psychotropic medications: After reviewing options, risks, and benefits patient agrees to continue current medications. Discontinue lithium ER. No other medication changes at this time as more time is needed to determine ongoing tolerability and efficacy. Plan is to continue to observe patient for response and side effects from medications, and ongoing monitoring and evaluation. Continue to educate patient on indication to change antipsychotics. 2. Review with patient informed consent and recommendations for psychotropic medication treatment listed below 3. Labs: no additional labs at this time 4. Therapy: continue milieu and group therapy 5. Further investigation including gathering information from patients relatives and review of past case records to inform treatment plan. 6. Safety/Wellness plan and follow-up outpatient appointments to be established prior to discharge. Next steps are for patient to meet with rn long term care to plan a safe discharge plan and establish outpatient services for ongoing treatment. 7. Confer with inpatient treatment team regarding treatment plan. 8. Psychosocial stressors addressed through rn field case manager 9. Legal status: [facility] 10. Consider discharge next week if patient is in stable condition, safe, and has a safe discharge plan. PSYCHOTROPIC MEDICATION TREATMENT INFORMED CONSENT and RECOMMENDATIONS: Review nature of condition, diagnosis, and prognosis. Review nature and purpose of psychotropic medication treatment. Review type of psychotropic medications being ordered. Review risk and benefits of psychotropic medication treatment. Review probable length of time patient will need to take medications. Review risk and benefits of not undergoing psychotropic medication treatment. Review alternative treatments to psychotropic medications. Review psychotropic medications contraindications, drug-drug interactions, side effects, and importance of reporting any side effects to a psychiatric provider or nurse during inpatient hospitalization, and upon discharge to patients psychiatric outpatient provider, primary care provider, or other health client care manager. Review importance of asking a nurse, psychiatric provider, or primary care provider any questions or problems concerning the psychotropic medications. Verify patient understands the information that has been provided, and understands, accepts, and agrees to psychotropic medications. Review patients safety plan and importance of patient to report to staff while hospitalized if patient is ever a danger to self/others, or unable to care for self, and upon discharge, the importance for patient to contact [facility] or [facility], or go to the nearest emergency room, if patient is ever a danger to self/others, or unable to care for self. Recommend that upon discharge patient establish medication management treatment with a psychiatric provider, establishes routine therapy appointments, and follow-up with primary care provider. Verify patient understands and agrees to these recommendations. 01/20/19 07:40 Subjective: Following up with patient for evaluation of psychosis, carol, and safety. Patient states, "I am being held here against my will. I do not need to be here." Patient reports no side effects from current medications. Discuss other psychotic medication options with patient, and patient reports I will only take lithium and Seroquel. Those are my medications." Objective: Vital Signs Temp Pulse Resp BP Pulse Ox 36.8 C 80 14 95/63 L 95 01/20/19 06:00 01/20/19 06:00 01/20/19 06:00 01/20/19 06:00 01/20/19 06:00 NURSING REPORT: Consulted with nursing for update on patients progress in treatment. Nurses report patient is not engaged in treatment, attends some groups; slept 8 hours; expresses the following psychiatric symptoms: anxious and irritable; exhibits the following psychiatric symptoms: unable to test reality, irritable, disorganized, loose associations, nonsensical, thought blocking; is eating all meals, requires continued prompting and direction from staff for ADLs, and is unable to communicate her basic needs; is only agreeable lithium and Seroquel and taking as prescribed with no report of side effects, with no s/s of EPS/akathisia, and denies SI/HI, denies A/V hallucinations, and reports delusions. MD REPORT FROM WEEKEND: Still psychotic, no significant improvement since admission. Recommend switching to different antipsychotic medication. RN REPORT: Patient refused Risperidone M-tab this AM; reports she is only willing to take Seroquel and lithium. MSE: The patient is a well-nourished female looking stated chronological age. Attire is appropriate dress is casual. Grooming status is inappropriate and disheveled. Ambulation is independent. Gait is normal and coordinated. Posture is normal. Eye contact is inappropriate and staring. Motor activity is appropriate with purposeful, organized, coordinated movements; with no involuntary movements. Attitude is uncooperative, defensive and guarded at times. Patient appears distractible and does not relate well to this interviewer. Language production is spontaneous. Rate is hesitant. Latency of response is prolonged. Articulation is clear. Patient reports mood as okay with flat, constricted, and inappropriate affect. Patients thought process is disorganized, non-linear and illogical, with loose associations, nonsensical, and thought blocking. Patient does not report suicidal/homicidal thoughts, ideas, or plans. Patient denies auditory, visual hallucinations. Patient reports delusions. Patient does not appear to be attending to internal stimuli. Patients attention and concentration are poor. Patient is oriented to person, place, and time. Patients insight is poor. Patients judgment is poor. - Time Spent With Patient Time Spent With Patient: 15 minutes, met with patient individually. - Pending Discharge Pending Discharge Within 24 Hours: No Pending Discharge Within 48 Hours: No ICD10 Worksheet Patient Problems: Problems Problem Status Onset Schizoaffective disorder Chronic PTSD (post-traumatic stress disorder) Chronic
[2019-01-20] MEDS ORDERED: QUEtiapine FUMARATE 200 MG TAB PO ONE (07:42)
[2019-01-20] MEDS: RISPERIDONE 1 MG ODT TAB SL SCH (08:06)
[2019-01-20] MEDS: LORazepam 0.5 MG TAB PO PRN (10:56)
[2019-01-20] MEDS: QUEtiapine FUMARATE 200 MG TAB PO SCH (19:10)
[2019-01-21] MEDS: RISPERIDONE 1 MG ODT TAB SL SCH (08:00)
--- NOTE | 2019-01-21 08:01 | SOAPPROG ---
SOAP Progress Note Assessment/Plan: Assessment: Schizoaffective Disorder, Bipolar Type. No improvement noted (see subjective/ objective note). Patient is not safe to discharge at this time as patient continues to exhibit signs of psychosis, and express psychosis symptoms. Patient requires continued inpatient care because of current psychosis, and requires inpatient level of care to stabilize to no longer be gravely disabled due to mental illness. Patient is unable to communicate her basic needs, unable to test reality, and continues to require prompting and direction from staff for ADLs. Patient exhibits inability to provide for herself, neglecting self-care, withdrawn from social interactions, currently shows inability to maintain any appropriate aspect of personal responsibility as an adult, patient becomes agitated and irritable easily and continues exhibited irritable behavior toward staff. Support system has inability to manage functional impairment at lower level of care. Patient could benefit from continued inpatient hospitalization for crisis stabilization, safety, and medication evaluation. Plan: 1. Psychotropic medications: After reviewing options, risks, and benefits patient agrees to continue current medications, decrease to taper to discontinue Seroquel 200 mg po QD and 400 mg po HS and begin trial of Risperidone M-tab 1 mg po QD. No other medication changes at this time as more time is needed to determine ongoing tolerability and efficacy. Plan is to continue to observe patient for response and side effects from medications, and ongoing monitoring and evaluation. Continue to educate patient on indication to change antipsychotics. 2. Review with patient informed consent and recommendations for psychotropic medication treatment listed below 3. Labs: no additional labs at this time 4. Therapy: continue milieu and group therapy 5. Further investigation including gathering information from patients relatives and review of past case records to inform treatment plan. 6. Safety/Wellness plan and follow-up outpatient appointments to be established prior to discharge. Next steps are for patient to meet with district manager primary care sales to plan a safe discharge plan and establish outpatient services for ongoing treatment. 7. Confer with inpatient treatment team regarding treatment plan. 8. Psychosocial stressors addressed through case fitter 9. Legal status: [facility] 10. Consider discharge next week if patient is in stable condition, safe, and has a safe discharge plan. PSYCHOTROPIC MEDICATION TREATMENT INFORMED CONSENT and RECOMMENDATIONS: Review nature of condition, diagnosis, and prognosis. Review nature and purpose of psychotropic medication treatment. Review type of psychotropic medications being ordered. Review risk and benefits of psychotropic medication treatment. Review probable length of time patient will need to take medications. Review risk and benefits of not undergoing psychotropic medication treatment. Review alternative treatments to psychotropic medications. Review psychotropic medications contraindications, drug-drug interactions, side effects, and importance of reporting any side effects to a psychiatric provider or nurse during inpatient hospitalization, and upon discharge to patients psychiatric outpatient provider, primary care provider, or other health animal care taker. Review importance of asking a nurse, psychiatric provider, or primary care provider any questions or problems concerning the psychotropic medications. Verify patient understands the information that has been provided, and understands, accepts, and agrees to psychotropic medications. Review patients safety plan and importance of patient to report to staff while hospitalized if patient is ever a danger to self/others, or unable to care for self, and upon discharge, the importance for patient to contact [facility] or [facility], or go to the nearest emergency room, if patient is ever a danger to self/others, or unable to care for self. Recommend that upon discharge patient establish medication management treatment with a psychiatric provider, establishes routine therapy appointments, and follow-up with primary care provider. Verify patient understands and agrees to these recommendations. 01/21/19 07:57 Subjective: Following up with patient for evaluation of psychosis, carol, and safety. Patient states, "I need to go now. I am completely better because I can raise my eyebrows. That means I am better and can go now." Patient reports no side effects from current medications and agrees to begin trial of Risperidone M-tab 1 mg po QD and Seroquel 200 mg po QD and 400 mg po QHS. Objective: Vital Signs Temp Pulse Resp BP Pulse Ox 36.5 C 75 15 108/70 95 01/21/19 06:00 01/21/19 06:00 01/21/19 06:00 01/21/19 06:00 01/21/19 06:00 NURSING REPORT: Consulted with nursing for update on patients progress in treatment. Nurses report patient is not engaged in treatment, attends some groups; slept 8 hours; expresses the following psychiatric symptoms: anxious and irritable; exhibits the following psychiatric symptoms: unable to test reality, irritable, disorganized, loose associations, nonsensical, thought blocking; is eating all meals, requires continued prompting and direction from staff for ADLs, and is unable to communicate her basic needs; is only agreeable lithium and Seroquel and taking as prescribed with no report of side effects, with no s/s of EPS/akathisia, and denies SI/HI, denies A/V hallucinations, and reports delusions. MD REPORT FROM WEEKEND: Still psychotic, no significant improvement since admission. Recommend switching to different antipsychotic medication. MSE: The patient is a well-nourished female looking stated chronological age. Attire is appropriate dress is casual. Grooming status is inappropriate and disheveled. Ambulation is independent. Gait is normal and coordinated. Posture is normal. Eye contact is inappropriate and staring. Motor activity is appropriate with purposeful, organized, coordinated movements; with no involuntary movements. Attitude is uncooperative, defensive and guarded at times. Patient appears distractible and does not relate well to this interviewer. Language production is spontaneous. Rate is hesitant. Latency of response is prolonged. Articulation is clear. Patient reports mood as okay with flat, constricted, and inappropriate affect. Patients thought process is disorganized, non-linear and illogical, with loose associations, nonsensical, and thought blocking. Patient does not report suicidal/homicidal thoughts, ideas, or plans. Patient denies auditory, visual hallucinations. Patient reports delusions. Patient does not appear to be attending to internal stimuli. Patients attention and concentration are poor. Patient is oriented to person, place, and time. Patients insight is poor. Patients judgment is poor. - Time Spent With Patient Time Spent With Patient: 15 minutes, met with patient individually. - Pending Discharge Pending Discharge Within 24 Hours: No Pending Discharge Within 48 Hours: No ICD10 Worksheet Patient Problems: Problems Problem Status Onset Schizoaffective disorder Chronic PTSD (post-traumatic stress disorder) Chronic
[2019-01-21] MEDS ORDERED: QUEtiapine FUMARATE 200 MG TAB PO SCH (09:00)
--- NOTE | 2019-01-21 13:52 | ASMTCMCOM ---
CM Note CM Note Notes: Ct. was in bed when CC entered her room. Ct. reported that she is doing "OK". She said that she slept well and that she showered. Ct. reported that she participate in all groups and that she enjoys interacting with others on the unit. Date Signed: 01/21/2019 01:51 PM Electronically Signed By:Radha Rapp
[2019-01-21] MEDS: QUEtiapine FUMARATE 200 MG TAB PO SCH (18:53)
[2019-01-21] MEDS: MELATONIN 3 MG TAB PO PRN (21:08)
[2019-01-22] MEDS ORDERED: QUEtiapine FUMARATE 300 MG TAB PO SCH (06:28)
[2019-01-22] MEDS ORDERED: QUEtiapine FUMARATE 100 MG TAB PO SCH (06:28)
[2019-01-22] MEDS: RISPERIDONE 1 MG ODT TAB SL SCH ×3 (07:19→10:56)
--- NOTE | 2019-01-22 07:50 | SOAPPROG ---
SOAP Progress Note Assessment/Plan: Assessment: Schizoaffective Disorder, Bipolar Type. No improvement noted (see subjective/ objective note). Patient is not safe to discharge at this time as patient continues to exhibit signs of psychosis, and express psychosis symptoms. Patient requires continued inpatient care because of current psychosis, and requires inpatient level of care to stabilize to no longer be gravely disabled due to mental illness. Patient is unable to communicate her basic needs, unable to test reality, and continues to require prompting and direction from staff for ADLs. Patient exhibits inability to provide for herself, neglecting self-care, withdrawn from social interactions, currently shows inability to maintain any appropriate aspect of personal responsibility as an adult, patient becomes agitated and irritable easily and continues exhibited irritable behavior toward staff. Support system has inability to manage functional impairment at lower level of care. Patient could benefit from continued inpatient hospitalization for crisis stabilization, safety, and medication evaluation. Plan: 1. Psychotropic medications: After reviewing options, risks, and benefits patient agrees to continue current medications, and agrees to increase Risperidone to 2 mg po QD and decrease Seroquel to 100 mg po QD and 300 mg po QHS. Continue to taper Seroquel to discontinue. No other medication changes at this time as more time is needed to determine ongoing tolerability and efficacy. Plan is to continue to observe patient for response and side effects from medications, and ongoing monitoring and evaluation. 2. Review with patient informed consent and recommendations for psychotropic medication treatment listed below 3. Labs: no additional labs at this time 4. Therapy: continue milieu and group therapy 5. Further investigation including gathering information from patients relatives and review of past case records to inform treatment plan. 6. Safety/Wellness plan and follow-up outpatient appointments to be established prior to discharge. Next steps are for patient to meet with home care scheduler to plan a safe discharge plan and establish outpatient services for ongoing treatment. 7. Confer with inpatient treatment team regarding treatment plan. 8. Psychosocial stressors addressed through telephonic nurse case manager 9. Legal status: [facility] 10. Consider discharge next week if patient is in stable condition, safe, and has a safe discharge plan. PSYCHOTROPIC MEDICATION TREATMENT INFORMED CONSENT and RECOMMENDATIONS: Review nature of condition, diagnosis, and prognosis. Review nature and purpose of psychotropic medication treatment. Review type of psychotropic medications being ordered. Review risk and benefits of psychotropic medication treatment. Review probable length of time patient will need to take medications. Review risk and benefits of not undergoing psychotropic medication treatment. Review alternative treatments to psychotropic medications. Review psychotropic medications contraindications, drug-drug interactions, side effects, and importance of reporting any side effects to a psychiatric provider or nurse during inpatient hospitalization, and upon discharge to patients psychiatric outpatient provider, primary care provider, or other health health care coordinator. Review importance of asking a nurse, psychiatric provider, or primary care provider any questions or problems concerning the psychotropic medications. Verify patient understands the information that has been provided, and understands, accepts, and agrees to psychotropic medications. Review patients safety plan and importance of patient to report to staff while hospitalized if patient is ever a danger to self/others, or unable to care for self, and upon discharge, the importance for patient to contact [facility] or [facility], or go to the nearest emergency room, if patient is ever a danger to self/others, or unable to care for self. Recommend that upon discharge patient establish medication management treatment with a psychiatric provider, establishes routine therapy appointments, and follow-up with primary care provider. Verify patient understands and agrees to these recommendations. 01/22/19 07:50 Subjective: Following up with patient for evaluation of psychosis and safety. Patient states, "I am drinking water, that is all I need. See I drank this cup of water." Patient reports no side effects from current medications, and agrees to increase Risperidone M-tab to 2 mg po QD. Patient agrees to continue Seroquel for taper to discontinue, 100 mg po QD and 300 mg po QHS. Objective: Vital Signs Temp Pulse Resp BP Pulse Ox 36.8 C 69 16 95/54 L 98 01/22/19 06:00 01/22/19 06:00 01/22/19 06:00 01/22/19 06:00 01/22/19 06:00 NURSING REPORT: Consulted with nursing for update on patients progress in treatment. Nurses report patient is not engaged in treatment, attends some groups; slept 8 hours; expresses the following psychiatric symptoms: anxious and irritable; exhibits the following psychiatric symptoms: unable to test reality, irritable, disorganized, loose associations, nonsensical, thought blocking; is eating all meals, requires continued prompting and direction from staff for ADLs, and is unable to communicate her basic needs; is only agreeable lithium and Seroquel and taking as prescribed with no report of side effects, with no s/s of EPS/akathisia, and denies SI/HI, denies A/V hallucinations, and reports delusions. MSE: The patient is a well-nourished female looking stated chronological age. Attire is appropriate dress is casual. Grooming status is inappropriate and disheveled. Ambulation is independent. Gait is normal and coordinated. Posture is normal. Eye contact is inappropriate and staring. Motor activity is appropriate with purposeful, organized, coordinated movements; with no involuntary movements. Attitude is uncooperative, defensive and guarded at times. Patient appears distractible and does not relate well to this interviewer. Language production is spontaneous. Rate is hesitant. Latency of response is prolonged. Articulation is clear. Patient reports mood as okay with flat, constricted, and inappropriate affect. Patients thought process is disorganized, non-linear and illogical, with loose associations, nonsensical, and thought blocking. Patient does not report suicidal/homicidal thoughts, ideas, or plans. Patient denies auditory, visual hallucinations. Patient reports delusions. Patient does not appear to be attending to internal stimuli. Patients attention and concentration are poor. Patient is oriented to person, place, and time. Patients insight is poor. Patients judgment is poor. - Time Spent With Patient Time Spent With Patient: 15 minutes, met with patient individually. - Pending Discharge Pending Discharge Within 24 Hours: No Pending Discharge Within 48 Hours: No ICD10 Worksheet Patient Problems: Problems Problem Status Onset Schizoaffective disorder Chronic PTSD (post-traumatic stress disorder) Chronic
[2019-01-22] MEDS: LORazepam 0.5 MG TAB PO PRN ×2 (12:45→16:27)
--- NOTE | 2019-01-22 12:59 | ASMTCMCOM ---
CM Note CM Note Notes: CC checked in with ct. who reported that she is doing well. Staff reported that ct. refused meds. but she said that she took the medication and that she feels better. CC asked ct. if she has any thoughts about where she is going to live upon discharge. Ct. said that she can live with her BF or find a bed through [facility]. Date Signed: 01/22/2019 12:58 PM Electronically Signed By:Radha Rapp
--- NOTE | 2019-01-23 07:29 | SOAPPROG ---
SOAP Progress Note Assessment/Plan: Assessment: Schizoaffective Disorder, Bipolar Type. No improvement noted (see subjective/ objective note). Patient is not safe to discharge at this time as patient continues to exhibit signs of psychosis, and express psychosis symptoms. Patient requires continued inpatient care because of current psychosis, and requires inpatient level of care to stabilize to no longer be gravely disabled due to mental illness. Patient is unable to communicate her basic needs, unable to test reality, and continues to require prompting and direction from staff for ADLs. Patient exhibits inability to provide for herself, neglecting self-care, withdrawn from social interactions, currently shows inability to maintain any appropriate aspect of personal responsibility as an adult. Support system has inability to manage functional impairment at lower level of care. Patient could benefit from continued inpatient hospitalization for crisis stabilization, safety, and medication evaluation. Plan: 1. Psychotropic medications: After reviewing options, risks, and benefits patient agrees to continue current medications, and agrees to increase Risperidone to 3 mg po QD and decrease Seroquel to 200 mg po QHS. Continue to taper Seroquel to discontinue. No other medication changes at this time as more time is needed to determine ongoing tolerability and efficacy. Plan is to continue to observe patient for response and side effects from medications, and ongoing monitoring and evaluation. 2. Review with patient informed consent and recommendations for psychotropic medication treatment listed below 3. Labs: no additional labs at this time 4. Therapy: continue milieu and group therapy 5. Further investigation including gathering information from patients relatives and review of past case records to inform treatment plan. 6. Safety/Wellness plan and follow-up outpatient appointments to be established prior to discharge. Next steps are for patient to meet with rn care manager to plan a safe discharge plan and establish outpatient services for ongoing treatment. 7. Confer with inpatient treatment team regarding treatment plan. 8. Psychosocial stressors addressed through shoe parts caser 9. Legal status: [facility] 10. Consider discharge next week if patient is in stable condition, safe, and has a safe discharge plan. PSYCHOTROPIC MEDICATION TREATMENT INFORMED CONSENT and RECOMMENDATIONS: Review nature of condition, diagnosis, and prognosis. Review nature and purpose of psychotropic medication treatment. Review type of psychotropic medications being ordered. Review risk and benefits of psychotropic medication treatment. Review probable length of time patient will need to take medications. Review risk and benefits of not undergoing psychotropic medication treatment. Review alternative treatments to psychotropic medications. Review psychotropic medications contraindications, drug-drug interactions, side effects, and importance of reporting any side effects to a psychiatric provider or nurse during inpatient hospitalization, and upon discharge to patients psychiatric outpatient provider, primary care provider, or other health dog day care attendant. Review importance of asking a nurse, psychiatric provider, or primary care provider any questions or problems concerning the psychotropic medications. Verify patient understands the information that has been provided, and understands, accepts, and agrees to psychotropic medications. Review patients safety plan and importance of patient to report to staff while hospitalized if patient is ever a danger to self/others, or unable to care for self, and upon discharge, the importance for patient to contact [facility] or [facility], or go to the nearest emergency room, if patient is ever a danger to self/others, or unable to care for self. Recommend that upon discharge patient establish medication management treatment with a psychiatric provider, establishes routine therapy appointments, and follow-up with primary care provider. Verify patient understands and agrees to these recommendations. 01/23/19 07:29 Subjective: Following up with patient for evaluation of psychosis and safety. Patient states, "Doing so much better. Going to take some medications, makes me feel a lot more focused." Patient reports no side effects from current medications, and agrees to increase Risperidone M-tab to 3 mg po QD. Patient agrees to continue Seroquel for taper to discontinue, 200 mg po QHS. Objective: Vital Signs Temp Pulse Resp BP Pulse Ox 36.8 C 71 18 86/57 L 95 01/23/19 06:00 01/23/19 06:00 01/23/19 06:00 01/23/19 06:00 01/23/19 06:00 NURSING REPORT: Consulted with nursing for update on patients progress in treatment. Nurses report patient is engaged in treatment, attends some groups; slept 8 hours; expresses the following psychiatric symptoms: anxious and irritable; exhibits the following psychiatric symptoms: unable to test reality, disorganized, loose associations, nonsensical, thought blocking; is eating all meals, requires continued prompting and direction from staff for ADLs, and is unable to communicate her basic needs; is agreeable to medications as prescribed with no report of side effects, with no s/s of EPS/akathisia, and denies SI/HI, denies A/V hallucinations, and reports delusions. MSE: The patient is a well-nourished female looking stated chronological age. Attire is appropriate dress is casual. Grooming status is inappropriate and disheveled. Ambulation is independent. Gait is normal and coordinated. Posture is normal. Eye contact is inappropriate and staring. Motor activity is appropriate with purposeful, organized, coordinated movements; with no involuntary movements. Attitude is uncooperative, defensive and guarded at times. Patient appears distractible and does not relate well to this interviewer. Language production is spontaneous. Rate is hesitant. Latency of response is prolonged. Articulation is clear. Patient reports mood as okay with flat, constricted, and inappropriate affect. Patients thought process is disorganized, non-linear and illogical, with loose associations, nonsensical, and thought blocking. Patient does not report suicidal/homicidal thoughts, ideas, or plans. Patient denies auditory, visual hallucinations. Patient reports delusions. Patient does not appear to be attending to internal stimuli. Patients attention and concentration are poor. Patient is oriented to person, place, and time. Patients insight is poor. Patients judgment is poor. - Time Spent With Patient Time Spent With Patient: 15 minutes,met with patient individually. - Pending Discharge Pending Discharge Within 24 Hours: No Pending Discharge Within 48 Hours: No ICD10 Worksheet Patient Problems: Problems Problem Status Onset Schizoaffective disorder Chronic PTSD (post-traumatic stress disorder) Chronic
[2019-01-23] MEDS: RISPERIDONE 1 MG ODT TAB SL SCH (07:30)
[2019-01-23] MEDS: ACETAMINOPHEN 325 MG TAB PO PRN (11:41)
[2019-01-23] MEDS: LORazepam 0.5 MG TAB PO PRN (11:41)
--- NOTE | 2019-01-23 14:19 | ASMTCMCOM ---
CM Note CM Note Notes: Pt. reports "doing alright". Pt. stated she "feel weird from the Risperdal". Pt. stated her "brain feels chemically" and she is "anxious in my heart". Pt. stated she "feel good too. Hope their going to release me". Pt. stated her boyfriend visited last evening, stating it "was comforting". Pt. stated she slept "so soundly, dreams of rain". Pt. reports getting enough to eat and attending all of the groups. Pt. reports feeling "relaxed in the eyes" when CC asked about her medications. Pt. denied SI, HI and paranoia. When CC asked about any hallucinations, pt stated "just snow" as she stared out the window. Pt. stated she is unsure about signing an BRENDON for her boyfriend and asked if he could sign it. Pt. presents as alert, disorganized, showered and in clean clothes, intermittent eye contact, and cooperative. Staff report pt. sleeping 9.5 hours and being medication compliant. Date Signed: 01/23/2019 02:18 PM Electronically Signed By:Danielle Kingsley
[2019-01-23] MEDS ORDERED: QUEtiapine FUMARATE 200 MG TAB PO SCH (21:00)
[2019-01-24] MEDS: RISPERIDONE 1 MG ODT TAB SL SCH (08:21)
[2019-01-24] MEDS: LORazepam 0.5 MG TAB PO PRN (11:49)
--- NOTE | 2019-01-24 16:31 | SOAPPROG ---
SOAP Progress Note Assessment/Plan: Assessment: 23 yo unemployed, homeless woman with prior dx of schizoaffective do admitted in June 2018 presented to ED with bizarre thoughts, delusions and paranoia. Patient was recently d/c'd from another [facility] and admits to non- compliance with meds. Per Live Leggett's note from 01/16/19: 01/16/19 06:55 Subjective: Following up with patient for evaluation of psychosis, carol, and safety. Patient states, "I am doing so good." Patient reports no side effects from current medications, and agrees to continue current medications. Patient continues to refer to her ex-boyfriend as her . WEEKEND PLAN: 01/24/19 16:26 1. Patient is currently taking Risperdal 3mg daily. She denies any SE's. There are no signs of EPS or dystonia since starting this med. 2. Patient states she would like to live in [place] with her "boyfriend" (also refers to him as her ""). She wants to get services through [facility] in [facility]. 3. Patient took shower and attended to ADLs appropriately today. 4. ST Subjective: Patient presents more coherent and logical today than last weekend. She gave MD note that said, "I'm too smart for this program. I'd like to enroll in residential program." Patient told CC that she would like services through [facility] in [place]. It's not clear where patient would live after discharge. She continues to talk about her "boyfriend" and her "." A male friend did visit her on unit yesterday, but the nature of their relationship is unknown. Patient is currently a client at [facility]. Objective: Vital Signs Temp Pulse Resp BP Pulse Ox 36.6 C 84 14 109/54 L 98 01/24/19 06:00 01/24/19 06:00 01/24/19 06:00 01/24/19 06:00 01/24/19 06:00 MSE: Affect: Blunted Mood: "OK" TP: Disorganized, more coherent than last w/e TC: Denies any SI/HI, still delusional Insight/Judgment: Impaired - Time Spent With Patient Time Spent With Patient: 15" - Pending Discharge Pending Discharge Within 24 Hours: No Pending Discharge Within 48 Hours: No ICD10 Worksheet Patient Problems: Problems Problem Status Onset Schizoaffective disorder Chronic PTSD (post-traumatic stress disorder) Chronic
[2019-01-24] MEDS: QUEtiapine FUMARATE 100 MG TAB PO SCH (19:51)
[2019-01-25] MEDS: LORazepam 0.5 MG TAB PO PRN ×2 (07:18→15:47)
[2019-01-25] MEDS: RISPERIDONE 1 MG ODT TAB SL SCH (07:19)
[2019-01-25] MEDS: NICOTINE POLACRILEX 2 MG GUM B PRN (14:53)
--- NOTE | 2019-01-25 15:29 | ASMTCMCOM ---
CM Note CM Note Notes: The patient reported that she is feeling "energized" and "ready for discharge." The patient plans to follow up with residential treatment with [facility] or [facility]. Per Mili, CPS in [place] recommended the patient engage in this level of care. Mili reported that the patient will be motivated for treatment by the possibility of visitation and custody of her child. A barrier to treatment are the patient's upcoming court dates: in [place] on 03/26/19 and in [place] on 03/12/19. Yfn reported that he wants the patient to live with him but he is very focused on getting custody of their child and in order to do that he can not allow her to live with him unless she is complying with the suggestions of the court. Although Yfn is complying with the recommendations, he reported that it has been more difficult for the patient due to a lack of adherence and available services. Date Signed: 01/25/2019 03:23 PM Electronically Signed By:Kalani Cedeno
--- NOTE | 2019-01-25 17:53 | SOAPPROG ---
SOAP Progress Note Assessment/Plan: Assessment: 23 yo unemployed, homeless woman with prior dx of schizoaffective do admitted in June 2018 presented to ED with bizarre thoughts, delusions and paranoia. Patient was recently d/c'd from another [facility] hospital and admits to non- compliance with meds. Per Live Leggett's note from 01/16/19: 01/16/19 06:55 Subjective: Following up with patient for evaluation of psychosis, carol, and safety. Patient states, "I am doing so good." Patient reports no side effects from current medications, and agrees to continue current medications. Patient continues to refer to her ex-boyfriend as her . WEEKEND PLAN: 01/24/19 16:26 1. Patient is currently taking Risperdal 3mg daily. She denies any SE's. There are no signs of EPS or dystonia since starting this med. 2. Patient states she would like to live in [place] with her "boyfriend" (also refers to him as her ""). She wants to get services through [facility] in [facility]. 3. Patient took shower and attended to ADLs appropriately today. 4. STC 01/25/19 17:44 1. CC spoke to patient's "boyfriend" today. He is the father of patient's 1 yo son. Patient[place] [facility] [place] temporary custody of son and lives in [place]. He says he is trying to get custody of his son, and wants to comply with court's expectations. He claims that the pipe setter at custody hearing last year told patient she needs to be in residential treatment. Patient told MD and CC she would be wiling to go to residential program, but boyfriend isn't sure she would actually stay to complete treatment. He's concerned she will go off her meds like last time. 2. CC will contact [facility], since they are one of the only HC's in [place] with a residential program. It's unclear what options patient has available. 3. Patient seems to have improved since switching to Risperdal. Last weekend she was not able to have any logical discussion about treatment planning. Today she was able to say she was willing to consider a residential program. She also mentioned getting services through [facility]. Boyfriend admitted he had been researching possible outpatient programs and mentioned [facility] to patient. 4. No med changes 5. STC Subjective: Patient showered and was well-groomed when MD met with her. She makes better eye contact and is more organized and goal-directed in her thinking. She told MD she would be willing to go to residential program, but didn't know what exactly that involved. MD said that CC would look into available options and discuss with patient. Objective: Vital Signs Temp Pulse Resp BP Pulse Ox 36.6 C 75 15 113/56 L 95 01/25/19 06:00 01/25/19 06:00 01/25/19 06:00 01/25/19 06:00 01/25/19 06:00 MSE: Affect: Calm, pleasant Mood: "Good" TP: More organized and goal-directed TC: Denies any SI/HI, less paranoia Insight/Judgment: Poor - Time Spent With Patient Time Spent With Patient: 15" - Pending Discharge Pending Discharge Within 24 Hours: No Pending Discharge Within 48 Hours: No ICD10 Worksheet Patient Problems: Problems Problem Status Onset Schizoaffective disorder Chronic PTSD (post-traumatic stress disorder) Chronic
[2019-01-25] MEDS: MELATONIN 3 MG TAB PO PRN (19:33)
[2019-01-25] MEDS: QUEtiapine FUMARATE 100 MG TAB PO SCH (19:33)
[2019-01-26] MEDS: RISPERIDONE 1 MG ODT TAB SL SCH (08:01)
[2019-01-26] MEDS: LORazepam 0.5 MG TAB PO PRN ×2 (08:01→15:57)
--- NOTE | 2019-01-26 08:26 | SOAPPROG ---
SOAP Progress Note Assessment/Plan: Assessment: Schizoaffective Disorder, Bipolar Type. No improvement noted (see subjective/ objective note). Patient is not safe to discharge at this time as patient continues to exhibit signs of psychosis, and express psychosis symptoms. Patient requires continued inpatient care because of current psychosis, and requires inpatient level of care to stabilize to no longer be gravely disabled due to mental illness. Patient is unable to communicate her basic needs, unable to test reality, and continues to require prompting and direction from staff for ADLs. Patient exhibits inability to provide for herself, neglecting self-care, withdrawn from social interactions, currently shows inability to maintain any appropriate aspect of personal responsibility as an adult. Support system has inability to manage functional impairment at lower level of care. Patient could benefit from continued inpatient hospitalization for crisis stabilization, safety, and medication evaluation. Plan: 1. Psychotropic medications: After reviewing options, risks, and benefits patient agrees to continue current medications, and agrees to increase Risperidone to 4 mg po QD and discontinue Seroquel. No other medication changes at this time as more time is needed to determine ongoing tolerability and efficacy. Plan is to continue to observe patient for response and side effects from medications, and ongoing monitoring and evaluation. 2. Review with patient informed consent and recommendations for psychotropic medication treatment listed below 3. Labs: no additional labs at this time 4. Therapy: continue milieu and group therapy 5. Further investigation including gathering information from patients relatives and review of past case records to inform treatment plan. 6. Safety/Wellness plan and follow-up outpatient appointments to be established prior to discharge. Next steps are for patient to meet with career coordinator to plan a safe discharge plan and establish outpatient services for ongoing treatment. 7. Confer with inpatient treatment team regarding treatment plan. 8. Psychosocial stressors addressed through rn case mgr 9. Legal status: [facility] 10. Consider discharge next week if patient is in stable condition, safe, and has a safe discharge plan. PSYCHOTROPIC MEDICATION TREATMENT INFORMED CONSENT and RECOMMENDATIONS: Review nature of condition, diagnosis, and prognosis. Review nature and purpose of psychotropic medication treatment. Review type of psychotropic medications being ordered. Review risk and benefits of psychotropic medication treatment. Review probable length of time patient will need to take medications. Review risk and benefits of not undergoing psychotropic medication treatment. Review alternative treatments to psychotropic medications. Review psychotropic medications contraindications, drug-drug interactions, side effects, and importance of reporting any side effects to a psychiatric provider or nurse during inpatient hospitalization, and upon discharge to patients psychiatric outpatient provider, primary care provider, or other health personal care home administrator. Review importance of asking a nurse, psychiatric provider, or primary care provider any questions or problems concerning the psychotropic medications. Verify patient understands the information that has been provided, and understands, accepts, and agrees to psychotropic medications. Review patients safety plan and importance of patient to report to staff while hospitalized if patient is ever a danger to self/others, or unable to care for self, and upon discharge, the importance for patient to contact [facility] or [facility], or go to the nearest emergency room, if patient is ever a danger to self/others, or unable to care for self. Recommend that upon discharge patient establish medication management treatment with a psychiatric provider, establishes routine therapy appointments, and follow-up with primary care provider. Verify patient understands and agrees to these recommendations. 01/26/19 08:26 Subjective: Following up with patient for evaluation of psychosis and safety. Patient states, "I am doing so much better. I was professional this weekend and got to speak to the rn case mgr." Patient reports no side effects from current medications, and agrees to continue current medications, and agrees to increase Risperidone to 4 mg po QD and discontinue Seroquel. Objective: Vital Signs Temp Pulse Resp BP Pulse Ox 36.7 C 90 16 104/72 96 01/26/19 06:00 01/26/19 06:00 01/26/19 06:00 01/26/19 06:00 01/26/19 06:00 NURSING REPORT: Consulted with nursing for update on patients progress in treatment. Nurses report patient is not engaged in treatment, attends some groups; slept 8 hours; expresses the following psychiatric symptoms: anxious and irritable; exhibits the following psychiatric symptoms: unable to test reality, irritable, disorganized, loose associations, nonsensical, thought blocking; is eating all meals, requires continued prompting and direction from staff for ADLs, and is unable to communicate her basic needs; is agreeable to medications as prescribed with no report of side effects, with no s/s of EPS/ akathisia, and denies SI/HI, denies A/V hallucinations, and reports delusions. MD REPORT FROM WEEKEND: Improved since last week. MSE: The patient is a well-nourished female looking stated chronological age. Attire is appropriate dress is casual. Grooming status is inappropriate and disheveled. Ambulation is independent. Gait is normal and coordinated. Posture is normal. Eye contact is inappropriate and staring. Motor activity is appropriate with purposeful, organized, coordinated movements; with no involuntary movements. Attitude is cooperative. Patient appears distractible and does not relate well to this interviewer. Language production is spontaneous. Rate is hesitant. Latency of response is prolonged. Articulation is clear. Patient reports mood as okay with flat, constricted, and inappropriate affect. Patients thought process is disorganized, non-linear and illogical, with loose associations, nonsensical, and thought blocking. Patient does not report suicidal/homicidal thoughts, ideas, or plans. Patient denies auditory, visual hallucinations. Patient reports delusions. Patient does not appear to be attending to internal stimuli. Patients attention and concentration are poor. Patient is oriented to person, place, and time. Patients insight is poor. Patients judgment is poor. - Time Spent With Patient Time Spent With Patient: 15 minutes, met with patient individually. - Pending Discharge Pending Discharge Within 24 Hours: No Pending Discharge Within 48 Hours: No ICD10 Worksheet Patient Problems: Problems Problem Status Onset Schizoaffective disorder Chronic PTSD (post-traumatic stress disorder) Chronic
[2019-01-26] MEDS: RISPERIDONE 2 MG ODT TAB SL SCH (09:05)
[2019-01-27] MEDS: LORazepam 0.5 MG TAB PO PRN ×2 (07:59→17:57)
[2019-01-27] MEDS: RISPERIDONE 2 MG ODT TAB SL SCH (08:01)
--- NOTE | 2019-01-27 08:42 | SOAPPROG ---
SOAP Progress Note Assessment/Plan: Assessment: Schizoaffective Disorder, Bipolar Type. Slight improvement noted; notably less irritable; continued psychosis notably disorganized and thought blocking (see subjective/objective note). Patient is not safe to discharge at this time as patient continues to exhibit signs of psychosis, and express psychosis symptoms. Patient requires continued inpatient care because of current psychosis, and requires inpatient level of care to stabilize to no longer be gravely disabled due to mental illness. Patient is unable to communicate her basic needs, unable to test reality, and continues to require prompting and direction from staff for ADLs. Patient exhibits inability to provide for herself, neglecting self-care, withdrawn from social interactions, currently shows inability to maintain any appropriate aspect of personal responsibility as an adult. Support system has inability to manage functional impairment at lower level of care. Patient could benefit from continued inpatient hospitalization for crisis stabilization, safety, and medication evaluation. Plan: 1. Psychotropic medications: After reviewing options, risks, and benefits patient agrees to continue current medications, and agrees to increase Risperidone to 4 mg po QD and discontinue Seroquel. No other medication changes at this time as more time is needed to determine ongoing tolerability and efficacy. Plan is to continue to observe patient for response and side effects from medications, and ongoing monitoring and evaluation. 2. Review with patient informed consent and recommendations for psychotropic medication treatment listed below 3. Labs: no additional labs at this time 4. Therapy: continue milieu and group therapy 5. Further investigation including gathering information from patients relatives and review of past case records to inform treatment plan. 6. Safety/Wellness plan and follow-up outpatient appointments to be established prior to discharge. Next steps are for patient to meet with lawn caretaker to plan a safe discharge plan and establish outpatient services for ongoing treatment. 7. Confer with inpatient treatment team regarding treatment plan. 8. Psychosocial stressors addressed through case planner 9. Legal status: [facility] 10. Consider discharge next week if patient is in stable condition, safe, and has a safe discharge plan. PSYCHOTROPIC MEDICATION TREATMENT INFORMED CONSENT and RECOMMENDATIONS: Review nature of condition, diagnosis, and prognosis. Review nature and purpose of psychotropic medication treatment. Review type of psychotropic medications being ordered. Review risk and benefits of psychotropic medication treatment. Review probable length of time patient will need to take medications. Review risk and benefits of not undergoing psychotropic medication treatment. Review alternative treatments to psychotropic medications. Review psychotropic medications contraindications, drug-drug interactions, side effects, and importance of reporting any side effects to a psychiatric provider or nurse during inpatient hospitalization, and upon discharge to patients psychiatric outpatient provider, primary care provider, or other health post acute care nurse practitioner. Review importance of asking a nurse, psychiatric provider, or primary care provider any questions or problems concerning the psychotropic medications. Verify patient understands the information that has been provided, and understands, accepts, and agrees to psychotropic medications. Review patients safety plan and importance of patient to report to staff while hospitalized if patient is ever a danger to self/others, or unable to care for self, and upon discharge, the importance for patient to contact [facility] or [facility], or go to the nearest emergency room, if patient is ever a danger to self/others, or unable to care for self. Recommend that upon discharge patient establish medication management treatment with a psychiatric provider, establishes routine therapy appointments, and follow-up with primary care provider. Verify patient understands and agrees to these recommendations. 01/27/19 08:41 Subjective: Following up with patient for evaluation of psychosis and safety. Patient states, "I am doing really, really good. I cannot believe how focused I feel on the new medication." Patient reports no side effects from current medications, and agrees to continue current medications. Patient expresses interest in going to her boyfriends after discharge. Patient agrees for this LETTER CARRIER and CC to contact boyfriend to set-up family meeting. Objective: Vital Signs Temp Pulse Resp BP Pulse Ox 37.1 C 79 14 113/55 L 97 01/27/19 06:00 01/27/19 06:00 01/27/19 06:00 01/27/19 06:00 01/27/19 06:00 NURSING REPORT: Consulted with nursing for update on patients progress in treatment. Nurses report patient is not engaged in treatment, attends some groups; slept 8 hours; expresses the following psychiatric symptoms: anxious; exhibits the following psychiatric symptoms: unable to test reality, disorganized, loose associations, nonsensical, thought blocking; is eating all meals, requires continued prompting and direction from staff for ADLs, and is unable to communicate her basic needs; is agreeable to medications as prescribed with no report of side effects, with no s/s of EPS/akathisia, and denies SI/HI, denies A/V hallucinations, and reports delusions. MSE: The patient is a well-nourished female looking stated chronological age. Attire is appropriate dress is casual. Grooming status is inappropriate and disheveled. Ambulation is independent. Gait is normal and coordinated. Posture is normal. Eye contact is inappropriate and staring. Motor activity is appropriate with purposeful, organized, coordinated movements; with no involuntary movements. Attitude is cooperative. Patient appears distractible and does not relate well to this interviewer. Language production is spontaneous. Rate is hesitant. Latency of response is prolonged. Articulation is clear. Patient reports mood as okay with flat, constricted, and inappropriate affect. Patients thought process is disorganized, non-linear and illogical, with loose associations, nonsensical, and thought blocking. Patient does not report suicidal/homicidal thoughts, ideas, or plans. Patient denies auditory, visual hallucinations. Patient denies delusions. Patient does appear to be attending to internal stimuli. Patients attention and concentration are poor. Patient is oriented to person, place, and time. Patients insight is poor. Patients judgment is poor. - Time Spent With Patient Time Spent With Patient: 15 minutes, met with patient individually. - Pending Discharge Pending Discharge Within 24 Hours: No Pending Discharge Within 48 Hours: No ICD10 Worksheet Patient Problems: Problems Problem Status Onset Schizoaffective disorder Chronic PTSD (post-traumatic stress disorder) Chronic
--- NOTE | 2019-01-28 06:55 | SOAPPROG ---
SOAP Progress Note Assessment/Plan: Assessment: Schizoaffective Disorder, Bipolar Type. Slight improvement noted; notably less irritable; continued psychosis notably disorganized and thought blocking (see subjective/objective note). Patient is not safe to discharge at this time as patient continues to exhibit signs of psychosis, and express psychosis symptoms. Patient requires continued inpatient care because of current psychosis, and requires inpatient level of care to stabilize to no longer be gravely disabled due to mental illness. Patient is unable to communicate her basic needs, unable to test reality, and continues to require prompting and direction from staff for ADLs. Patient exhibits inability to provide for herself, neglecting self-care, withdrawn from social interactions, currently shows inability to maintain any appropriate aspect of personal responsibility as an adult. Support system has inability to manage functional impairment at lower level of care. Patient could benefit from residential program for support after discharge. Patient could benefit from continued inpatient hospitalization for crisis stabilization, safety, and medication evaluation. Plan: 1. Psychotropic medications: After reviewing options, risks, and benefits patient agrees to continue current medications. No medication changes at this time as more time is needed to determine ongoing tolerability and efficacy. Consider BISWAS prior to discharge if patient continues to show improvement on risperidone. Plan is to continue to observe patient for response and side effects from medications, and ongoing monitoring and evaluation. 2. Review with patient informed consent and recommendations for psychotropic medication treatment listed below 3. Labs: no additional labs at this time 4. Therapy: continue milieu and group therapy 5. Further investigation including gathering information from patients relatives and review of past case records to inform treatment plan. 6. Safety/Wellness plan and follow-up outpatient appointments to be established prior to discharge. Next steps are for patient to meet with day care worker to plan a safe discharge plan and establish outpatient services for ongoing treatment. 7. Confer with inpatient treatment team regarding treatment plan. 8. Psychosocial stressors addressed through catalytic case operator 9. Legal status: [facility] 10. Consider discharge next week if patient is in stable condition, safe, and has a safe discharge plan. PSYCHOTROPIC MEDICATION TREATMENT INFORMED CONSENT and RECOMMENDATIONS: Review nature of condition, diagnosis, and prognosis. Review nature and purpose of psychotropic medication treatment. Review type of psychotropic medications being ordered. Review risk and benefits of psychotropic medication treatment. Review probable length of time patient will need to take medications. Review risk and benefits of not undergoing psychotropic medication treatment. Review alternative treatments to psychotropic medications. Review psychotropic medications contraindications, drug-drug interactions, side effects, and importance of reporting any side effects to a psychiatric provider or nurse during inpatient hospitalization, and upon discharge to patients psychiatric outpatient provider, primary care provider, or other health regular senior care provider. Review importance of asking a nurse, psychiatric provider, or primary care provider any questions or problems concerning the psychotropic medications. Verify patient understands the information that has been provided, and understands, accepts, and agrees to psychotropic medications. Review patients safety plan and importance of patient to report to staff while hospitalized if patient is ever a danger to self/others, or unable to care for self, and upon discharge, the importance for patient to contact [facility] or [facility], or go to the nearest emergency room, if patient is ever a danger to self/others, or unable to care for self. Recommend that upon discharge patient establish medication management treatment with a psychiatric provider, establishes routine therapy appointments, and follow-up with primary care provider. Verify patient understands and agrees to these recommendations. 01/28/19 06:53 Subjective: Following up with patient for evaluation of psychosis and safety. Patient states, "I am doing good. Just wondering about my schedule. Where I am going to go next." With regard to why patient is in hospital and taking medications patient reports, "I am here because of the feedback I gave someone and take medications because I have to have schizophrenia. I want to eventually be transferred to another physician that will give me lithium and Seroquel." Patient reports no side effects from current medications, and agrees to continue current medications. Patient reports medications are "improving focus. " Patient expresses she has no plan regarding discharge and no support system after discharge. Patient agrees to work with this BUTTON BUTTONHOLE MARKER and CC to establish safe discharge with support system after discharge. Objective: Vital Signs Temp Pulse Resp BP Pulse Ox 37.1 C 79 14 113/55 L 97 01/27/19 06:00 01/27/19 06:00 01/27/19 06:00 01/27/19 06:00 01/27/19 06:00 NURSING REPORT: Consulted with nursing for update on patients progress in treatment. Nurses report patient is engaged in treatment, attends some groups; slept 8 hours; expresses the following psychiatric symptoms: anxious; exhibits the following psychiatric symptoms: unable to test reality, disorganized, loose associations, nonsensical, thought blocking; is eating all meals, requires continued prompting and direction from staff for ADLs, and is unable to communicate her basic needs; is agreeable to medications as prescribed with no report of side effects, with no s/s of EPS/akathisia, and denies SI/HI, denies A /V hallucinations, and reports delusions. MSE: The patient is a well-nourished female looking stated chronological age. Attire is appropriate dress is casual. Grooming status is inappropriate and disheveled. Ambulation is independent. Gait is normal and coordinated. Posture is normal. Eye contact is inappropriate and staring. Motor activity is appropriate with purposeful, organized, coordinated movements; with no involuntary movements. Attitude is cooperative. Patient appears distractible and does not relate well to this interviewer. Language production is spontaneous. Rate is hesitant. Latency of response is prolonged. Articulation is clear. Patient reports mood as okay with flat, constricted, and inappropriate affect. Patients thought process is disorganized, non-linear and illogical, with loose associations, nonsensical, and thought blocking. Patient does not report suicidal/homicidal thoughts, ideas, or plans. Patient denies auditory, visual hallucinations. Patient denies delusions. Patient does appear to be attending to internal stimuli. Patients attention and concentration are poor. Patient is oriented to person, place, and time. Patients insight is poor. Patients judgment is poor. - Time Spent With Patient Time Spent With Patient: 15 minutes, met with patient individually. - Pending Discharge Pending Discharge Within 24 Hours: No Pending Discharge Within 48 Hours: No ICD10 Worksheet Patient Problems: Problems Problem Status Onset Schizoaffective disorder Chronic PTSD (post-traumatic stress disorder) Chronic
[2019-01-28] MEDS: LORazepam 0.5 MG TAB PO PRN ×4 (07:31→23:37)
[2019-01-28] MEDS: RISPERIDONE 2 MG ODT TAB SL SCH (08:11)
[2019-01-28] MEDS: NICOTINE POLACRILEX 2 MG GUM B PRN (14:11)
[2019-01-28] MEDS: MELATONIN 3 MG TAB PO PRN (19:04)
--- NOTE | 2019-01-29 06:33 | SOAPPROG ---
SOAP Progress Note Assessment/Plan: Assessment: Schizoaffective Disorder, Bipolar Type. Slight improvement noted; notably less irritable; continued psychosis notably disorganized and thought blocking (see subjective/objective note). Patient is not safe to discharge at this time as patient continues to exhibit signs of psychosis, and express psychosis symptoms. Patient requires continued inpatient care because of current psychosis, and requires inpatient level of care to stabilize to no longer be gravely disabled due to mental illness. Patient is unable to communicate her basic needs, unable to test reality, and continues to require prompting and direction from staff for ADLs. Patient exhibits inability to provide for herself, neglecting self-care, withdrawn from social interactions, currently shows inability to maintain any appropriate aspect of personal responsibility as an adult. Support system has inability to manage functional impairment at lower level of care. Patient could benefit from residential program for support after discharge. Patient could benefit from continued inpatient hospitalization for crisis stabilization, safety, and medication evaluation. Plan: 1. Psychotropic medications: After reviewing options, risks, and benefits patient agrees to continue current medications. No medication changes at this time as more time is needed to determine ongoing tolerability and efficacy. Consider BISWAS prior to discharge if patient continues to show improvement on risperidone. Plan is to continue to observe patient for response and side effects from medications, and ongoing monitoring and evaluation. 2. Review with patient informed consent and recommendations for psychotropic medication treatment listed below 3. Labs: no additional labs at this time 4. Therapy: continue milieu and group therapy 5. Further investigation including gathering information from patients relatives and review of past case records to inform treatment plan. 6. Safety/Wellness plan and follow-up outpatient appointments to be established prior to discharge. Next steps are for patient to meet with care coordinator to plan a safe discharge plan and establish outpatient services for ongoing treatment. 7. Confer with inpatient treatment team regarding treatment plan. 8. Psychosocial stressors addressed through supportive employment case manager 9. Legal status: [facility] 10. Consider discharge next week if patient is in stable condition, safe, and has a safe discharge plan. PSYCHOTROPIC MEDICATION TREATMENT INFORMED CONSENT and RECOMMENDATIONS: Review nature of condition, diagnosis, and prognosis. Review nature and purpose of psychotropic medication treatment. Review type of psychotropic medications being ordered. Review risk and benefits of psychotropic medication treatment. Review probable length of time patient will need to take medications. Review risk and benefits of not undergoing psychotropic medication treatment. Review alternative treatments to psychotropic medications. Review psychotropic medications contraindications, drug-drug interactions, side effects, and importance of reporting any side effects to a psychiatric provider or nurse during inpatient hospitalization, and upon discharge to patients psychiatric outpatient provider, primary care provider, or other health child care supervisor. Review importance of asking a nurse, psychiatric provider, or primary care provider any questions or problems concerning the psychotropic medications. Verify patient understands the information that has been provided, and understands, accepts, and agrees to psychotropic medications. Review patients safety plan and importance of patient to report to staff while hospitalized if patient is ever a danger to self/others, or unable to care for self, and upon discharge, the importance for patient to contact [facility] or [facility], or go to the nearest emergency room, if patient is ever a danger to self/others, or unable to care for self. Recommend that upon discharge patient establish medication management treatment with a psychiatric provider, establishes routine therapy appointments, and follow-up with primary care provider. Verify patient understands and agrees to these recommendations. 01/29/19 06:33 Subjective: Following up with patient for evaluation of psychosis and safety. Patient states, "I am doing good." Patient reports no side effects from current medications, and agrees to continue current medications. Patient reports she can stay with her boyfriend after discharge, and this plan is not valid as she no longer is dating, and reportedly ex-boyfriend is no longer a support for patient. Patient agrees to work with this MAINTENANCE WELDER and CC to establish safe discharge with support system after discharge. Objective: Vital Signs Temp Pulse Resp BP Pulse Ox 36.4 C 79 16 102/67 97 01/28/19 06:00 01/28/19 06:00 01/28/19 06:00 01/28/19 06:00 01/28/19 06:00 NURSING REPORT: Consulted with nursing for update on patients progress in treatment. Nurses report patient is engaged in treatment, attends some groups; slept 8 hours; expresses the following psychiatric symptoms: anxious; exhibits the following psychiatric symptoms: unable to test reality, disorganized, loose associations, nonsensical, thought blocking; is eating all meals, requires continued prompting and direction from staff for ADLs, and is unable to communicate her basic needs; is agreeable to medications as prescribed with no report of side effects, with no s/s of EPS/akathisia, and denies SI/HI, denies A /V hallucinations, and reports delusions. CARE COORDINATION: Currently seeking placement in residential program. Patient currently does not have support system to manage functional impairment at lower level of care. MSE: The patient is a well-nourished female looking stated chronological age. Attire is appropriate dress is casual. Grooming status is inappropriate and disheveled. Ambulation is independent. Gait is normal and coordinated. Posture is normal. Eye contact is inappropriate and staring. Motor activity is appropriate with purposeful, organized, coordinated movements; with no involuntary movements. Attitude is cooperative. Patient appears distractible and does not relate well to this interviewer. Language production is spontaneous. Rate is hesitant. Latency of response is prolonged. Articulation is clear. Patient reports mood as okay with flat, constricted, and inappropriate affect. Patients thought process is disorganized, non-linear and illogical, with loose associations, nonsensical, and thought blocking. Patient does not report suicidal/homicidal thoughts, ideas, or plans. Patient denies auditory, visual hallucinations. Patient denies delusions. Patient does appear to be attending to internal stimuli. Patients attention and concentration are poor. Patient is oriented to person, place, and time. Patients insight is poor. Patients judgment is poor. - Time Spent With Patient Time Spent With Patient: 15 minutes, met with patient individually. - Pending Discharge Pending Discharge Within 24 Hours: No Pending Discharge Within 48 Hours: No ICD10 Worksheet Patient Problems: Problems Problem Status Onset Schizoaffective disorder Chronic PTSD (post-traumatic stress disorder) Chronic
[2019-01-29] MEDS: RISPERIDONE 2 MG ODT TAB SL SCH (08:14)
[2019-01-29] MEDS: LORazepam 0.5 MG TAB PO PRN (09:56)
[2019-01-30] MEDS: MELATONIN 3 MG TAB PO PRN ×2 (00:06→19:16)
[2019-01-30] MEDS ORDERED: RISPERIDONE 1 MG ODT TAB PO SCH (06:00)
[2019-01-30] MEDS: RISPERIDONE 1 MG ODT TAB SL SCH ×2 (06:27→07:36)
[2019-01-30] MEDS: RISPERIDONE 2 MG ODT TAB SL SCH (07:37)
--- NOTE | 2019-01-30 07:38 | SOAPPROG ---
SOAP Progress Note Assessment/Plan: Assessment: Schizoaffective Disorder, Bipolar Type. Slight improvement noted; notably less irritable; continued psychosis notably disorganized and thought blocking (see subjective/objective note). Patient is not safe to discharge at this time as patient continues to exhibit signs of psychosis, and express psychosis symptoms. Patient requires continued inpatient care because of current psychosis, and requires inpatient level of care to stabilize to no longer be gravely disabled due to mental illness. Patient is unable to communicate her basic needs, unable to test reality, and continues to require prompting and direction from staff for ADLs. Patient exhibits inability to provide for herself, neglecting self-care, withdrawn from social interactions, currently shows inability to maintain any appropriate aspect of personal responsibility as an adult. Support system has inability to manage functional impairment at lower level of care. Patient could benefit from residential program for support after discharge. Patient could benefit from continued inpatient hospitalization for crisis stabilization, safety, and medication evaluation. Plan: 1. Psychotropic medications: After reviewing options, risks, and benefits patient agrees to continue current medications, and agrees to increase Risperidone M-tab to 5 mg po QD. No medication changes at this time as more time is needed to determine ongoing tolerability and efficacy. Plan is to continue to observe patient for response and side effects from medications, and ongoing monitoring and evaluation. 2. Review with patient informed consent and recommendations for psychotropic medication treatment listed below 3. Labs: no additional labs at this time 4. Therapy: continue milieu and group therapy 5. Further investigation including gathering information from patients relatives and review of past case records to inform treatment plan. 6. Safety/Wellness plan and follow-up outpatient appointments to be established prior to discharge. Next steps are for patient to meet with rn progressive care unit to plan a safe discharge plan and establish outpatient services for ongoing treatment. 7. Confer with inpatient treatment team regarding treatment plan. 8. Psychosocial stressors addressed through case management coordinator 9. Legal status: [facility] 10. Consider discharge next week if patient is in stable condition, safe, and has a safe discharge plan. PSYCHOTROPIC MEDICATION TREATMENT INFORMED CONSENT and RECOMMENDATIONS: Review nature of condition, diagnosis, and prognosis. Review nature and purpose of psychotropic medication treatment. Review type of psychotropic medications being ordered. Review risk and benefits of psychotropic medication treatment. Review probable length of time patient will need to take medications. Review risk and benefits of not undergoing psychotropic medication treatment. Review alternative treatments to psychotropic medications. Review psychotropic medications contraindications, drug-drug interactions, side effects, and importance of reporting any side effects to a psychiatric provider or nurse during inpatient hospitalization, and upon discharge to patients psychiatric outpatient provider, primary care provider, or other health healthcare management. Review importance of asking a nurse, psychiatric provider, or primary care provider any questions or problems concerning the psychotropic medications. Verify patient understands the information that has been provided, and understands, accepts, and agrees to psychotropic medications. Review patients safety plan and importance of patient to report to staff while hospitalized if patient is ever a danger to self/others, or unable to care for self, and upon discharge, the importance for patient to contact [facility] or [facility], or go to the nearest emergency room, if patient is ever a danger to self/others, or unable to care for self. Recommend that upon discharge patient establish medication management treatment with a psychiatric provider, establishes routine therapy appointments, and follow-up with primary care provider. Verify patient understands and agrees to these recommendations. 01/30/19 07:36 Subjective: Following up with patient for evaluation of psychosis and safety. Patient whispers, "Doing really, really, good." Patient reports no side effects from current medications, and agrees to continue current medications. Patient agrees to increase Risperidone M-tab to 5 mg po QD. Patient expresses she has no plan regarding discharge and no support system after discharge. Patient continues to report she can stay with her boyfriend after discharge, and this plan is not valid as she no longer is dating, and reportedly ex-boyfriend is no longer a support for patient. Patient agrees to work with this STATISTICS PROFESSOR and CC to establish safe discharge with support system after discharge. Objective: Vital Signs Temp Pulse Resp BP Pulse Ox 36.9 C 86 14 93/63 L 96 01/30/19 06:00 01/30/19 06:00 01/30/19 06:00 01/30/19 06:00 01/30/19 06:00 NURSING REPORT: Consulted with nursing for update on patients progress in treatment. Nurses report patient is engaged in treatment, attends some groups; slept 8 hours; expresses the following psychiatric symptoms: anxious; exhibits the following psychiatric symptoms: unable to test reality, disorganized, loose associations, nonsensical, thought blocking; is eating all meals, requires continued prompting and direction from staff for ADLs, and is unable to communicate her basic needs; is agreeable to medications as prescribed with no report of side effects, with no s/s of EPS/akathisia, and denies SI/HI, denies A /V hallucinations, and reports delusions. CARE COORDINATION: Currently seeking placement in residential program. Patient currently does not have support system to manage functional impairment at lower level of care. MSE: The patient is a well-nourished female looking stated chronological age. Attire is appropriate dress is casual. Grooming status is inappropriate and disheveled. Ambulation is independent. Gait is normal and coordinated. Posture is normal. Eye contact is inappropriate and staring. Motor activity is appropriate with purposeful, organized, coordinated movements; with no involuntary movements. Attitude is cooperative. Patient appears distractible and does not relate well to this interviewer. Language production is spontaneous. Rate is hesitant. Latency of response is prolonged. Articulation is clear. Patient reports mood as okay with flat, constricted, and inappropriate affect. Patients thought process is disorganized, non-linear and illogical, with loose associations, nonsensical, and thought blocking. Patient does not report suicidal/homicidal thoughts, ideas, or plans. Patient denies auditory, visual hallucinations. Patient denies delusions. Patient does appear to be attending to internal stimuli. Patients attention and concentration are poor. Patient is oriented to person, place, and time. Patients insight is poor. Patients judgment is poor. - Time Spent With Patient Time Spent With Patient: 15 minutes, met with patient individually. - Pending Discharge Pending Discharge Within 24 Hours: No Pending Discharge Within 48 Hours: No ICD10 Worksheet Patient Problems: Problems Problem Status Onset Schizoaffective disorder Chronic PTSD (post-traumatic stress disorder) Chronic
--- NOTE | 2019-01-30 13:08 | ASMTCMCOM ---
CM Note CM Note Notes: Pt. reports feeling "good". Pt. stated she slept "great". Pt. reports getting enough to eat and attending groups. Pt. reports "don't notice any side effects" about her medications. Pt. reports no issues while on the unit, pt then stated "only issue is keeping me too long". Pt. stated she has not spoken with the provider about her discharge plan. Pt. denied SI, HI, AVH and paranoia. Pt. presents as alert, calm, distractible, intermittent eye contact, and cooperative. Staff report pt. sleeping 10 hours and being medication compliant. CC to reach out to [facility] for follow up appointment for pt. Date Signed: 01/30/2019 01:07 PM Electronically Signed By:Danielle Kingsley
[2019-01-30] MEDS: LORazepam 0.5 MG TAB PO PRN (16:31)
[2019-01-31] MEDS: LORazepam 0.5 MG TAB PO PRN ×3 (01:53→23:38)
[2019-01-31] MEDS: RISPERIDONE 1 MG ODT TAB SL SCH (07:29)
[2019-01-31] MEDS: RISPERIDONE 2 MG ODT TAB SL SCH (07:29)
--- NOTE | 2019-01-31 14:58 | ASMTCMCOM ---
CM Note CM Note Notes: Pt. reports feeling "really good". Pt. stated she slept "well". Pt. reports getting enough to eat and plans on attending groups today. Pt. stated "think it's working for the time being" when asked about her medication. Pt. stated she doesn't think she will continue taking her medications after she discharges. Pt. reports no issues while on the unit. Pt. stated her goal is to "just to get through the weekend". Pt. stated she is "discharging Saturday. Live said so". Pt. denied SI, HI, AVH and paranoia. Pt. presents as semi-alert, still in bed, unkempt, fair to poor eye contact, somewhat passive and cooperative. Staff report pt. sleeping 7 hours last night and sleeping well into the day. Staff report pt. being medication compliant. CC is waiting for follow up appointments for pt, [facility] will provide appointments on Saturday. Pt. will potentially [facility] on [facility] to a homeless [facility]. Date Signed: 01/31/2019 02:58 PM Electronically Signed By:Danielle Kingsley
--- NOTE | 2019-01-31 18:16 | SOAPPROG ---
SOAP Progress Note Assessment/Plan: Assessment: 23 yo unemployed, homeless woman with prior dx of schizoaffective do admitted in June 2018 presented to ED with bizarre thoughts, delusions and paranoia. Patient was recently d/c'd [facility] and admits to non- compliance with meds. WEEKEND PLAN: 01/31/19 18:10 1. Patient overly sedated, slept all morning and most of the afternoon. 2. Will reduce Risperdal m-tab to 4mg PO and change to HS dosing. 3. Patient shows some signs of improvement. Her TP is more linear and goal- directed, though she is easily derailed. Her ability to sustain attention and focus is also improved since admission. She is less paranoid and delusional. She does not insist on being called "Joni" anymore. She also correctly identifies Horacio as her "boyfriend" and does not refer to him as her " " or "ex-." These are all indications that she is more in touch with reality. 4. For these reasons, this MD believes Risperdal has been effective medication for her, and would recommend continuing. Recommend consider Risperdal Consta for BISWAS to increase probability of compliance and long-term benefit from medication. 5. MD discussed possibility of going to residential treatment program, but patient [facility]. 6. ST Subjective: MD had longest conversation with patient since her admission. Initially, patient was sitting in rocking chair in milieu with head resting on arm of chair b/c she was too tired to stay awake. But during our conversation, she maintained appropriate eye contact and was coherent and goal-directed. A few times she started to lose focus and closed her eyes. Patient admitted that last w/e her boyfriend, Horacio, advised she go to a residential treatment program. But patient says now she [facility]. Patient wouldn't says why she changed her mind. Objective: Vital Signs Temp Pulse Resp BP Pulse Ox 36.3 C 82 14 98/54 L 98 01/31/19 06:00 01/31/19 06:00 01/31/19 06:00 01/31/19 06:00 01/31/19 06:00 MSE: Affect: Euthymic Mood: "Good" TP: More coherent and goal-directed TC: Denies any SI/HI, less paranoid delusions Perception: Denies AH/VH Insight/ Judgment: Improved - Time Spent With Patient Time Spent With Patient: 20" - Pending Discharge Pending Discharge Within 24 Hours: No Pending Discharge Within 48 Hours: No ICD10 Worksheet Patient Problems: Problems Problem Status Onset Schizoaffective disorder Chronic PTSD (post-traumatic stress disorder) Chronic
[2019-01-31] MEDS: MELATONIN 3 MG TAB PO PRN (19:05)
[2019-02-01] MEDS: NICOTINE POLACRILEX 2 MG GUM B PRN ×3 (09:59→14:33)
[2019-02-01] MEDS: LORazepam 0.5 MG TAB PO PRN (09:59)
--- NOTE | 2019-02-01 14:49 | ASMTBHDC ---
Notes Note: Notes: Pt. reports feeling "really good". Pt. stated she slept "great". Pt. reports getting enough to eat and attending groups. Pt. reports no issues with her medications, adding she "think they're great". Pt. stated "good medication for discharging from a hospital" and "doing job just right". Pt. stated she plans to stay in the long term upon discharge, adding she has completed the coordinated entry. Pt. stated she has a warm coat, warm clothes and shoes. Pt. reports her plan during the day is to get hot water and "keep moving". Pt. reports she is able to get to her follow up appointments. Pt. stated she can fill and take her medications as prescribed. Pt. stated she has "absolutly no concerns about discharging", adding "concerned he won't let me leave". Pt. denied SI, HI, AVH and paranoia. Pt. presents as alert, calm, passive, distracted, intermittent eye contact, a bit unkempt, and cooperative. Staff report pt. sleeping 10 hours and being medication compliant. [facility] to provided follow up appointment on Saturday for pt. Pt. set to discharge on Saturday to the homeless long term. Date Signed: 02/01/2019 02:48 PM Electronically Signed By:Danielle Kingsley
[2019-02-01] MEDS: ACETAMINOPHEN 325 MG TAB PO PRN (16:06)
--- NOTE | 2019-02-01 17:38 | SOAPPROG ---
SOAP Progress Note Assessment/Plan: Assessment: 23 yo unemployed, homeless woman with prior dx of schizoaffective do admitted in June 2018 presented to ED with bizarre thoughts, delusions and paranoia. Patient was recently d/c'd from another [facility] hospital and admits to non- compliance with meds. WEEKEND PLAN: 01/31/19 18:10 1. Patient overly sedated, slept all morning and most of the afternoon. 2. Will reduce Risperdal m-tab to 4mg PO and change to HS dosing. 3. Patient shows some signs of improvement. Her TP is more linear and goal- directed, though she is easily derailed. Her ability to sustain attention and focus is also improved since admission. She is less paranoid and delusional. She does not insist on being called "Joni" anymore. She also correctly identifies Horacio as her "boyfriend" and does not refer to him as her " " or "ex-." These are all indications that she is more in touch with reality. 4. For these reasons, this MD believes Risperdal has been effective medication for her, and would recommend continuing. Recommend consider Risperdal Consta for BISWAS to increase probability of compliance and long-term benefit from medication. 5. MD discussed possibility of going to residential treatment program, but patient says she wants to go to homeless long term. 6. [facility] 02/01/19 17:32 1. Patient appears less sedated and more alert since Risperdal changed to HS. 2. Patient continues to state she wants to stay at homeless long term and with her boyfriend, Yvonne or Horacio (unclear). However, her boyfriend told last weekend that patient cannot stay with him unless she has complied with court's recommendation which is that she undergo residential treatment. this weekend looked into options for patient. She may be eligible for residential tx at [facility]. [facility], last w/e last several voicemails for [facility], but none have been returned yet. Patient may also be eligible to stay at [facility] and receive treatment there or through [facility]. Either of these options would be better than living at homeless long term, since patient is less likely to follow through with treatment. Her boyfriend says he wants her to complete treatment and would support her going to [facility] or [facility]. 3. CC to find out if [facility] or [facility] are possible placements for patient prior to discharge. 4. [facility] Subjective: Patient more alert today. She is able to participate in groups and milieu activities that she was too sedated to do yesterday. She is very focused on "leaving on Saturday" b/c she says that's what she was told by her provider on Saturday. MD tried to explain that he would much prefer her to go directly to [facility] residential program or [facility], but patient was much more interested in leaving as soon as possible. MD reminded patient that her boyfriend told her last weekend that he wanted her to complete treatment before she could stay with him. She doesn't believe this is true. MD also pointed out that the custody court in [place] recommended long-term tx for her before it would consider granting her any kind of custody of her son. Patient is having hard time committing to further treatment because she is convinced she can leave on Saturday and go to homeless long term. MD does not believe she is using good judgment and would like to see her set up with long-term treatment after discharge. Objective: Vital Signs Temp Pulse Resp BP Pulse Ox 36.5 C 86 16 103/57 L 97 02/01/19 06:00 02/01/19 06:00 02/01/19 06:00 02/01/19 06:00 02/01/19 06:00 MSE: Affect: Euthymic, giddy at times, inappropriate smiling and laughter Mood : "Great" TP: More organized and goal-directed, but can become loose and derailed easily TC: Denies any SI/HI, less paranoid delusions Insight/Judgment : Poor, but improved since admission - Time Spent With Patient Time Spent With Patient: 15" - Pending Discharge Pending Discharge Within 24 Hours: No Pending Discharge Within 48 Hours: No ICD10 Worksheet Patient Problems: Problems Problem Status Onset Schizoaffective disorder Chronic PTSD (post-traumatic stress disorder) Chronic
[2019-02-01] MEDS: MELATONIN 3 MG TAB PO PRN (19:30)
[2019-02-01] MEDS: RISPERIDONE 2 MG ODT TAB SL SCH (19:30)
[2019-02-02] MEDS: LORazepam 0.5 MG TAB PO PRN ×2 (00:41→10:08)
--- NOTE | 2019-02-02 08:11 | SOAPPROG ---
SOAP Progress Note Assessment/Plan: Assessment: Schizoaffective Disorder, Bipolar Type. Slight improvement noted; notably less irritable; continued psychosis notably disorganized and thought blocking (see subjective/objective note). Patient is not safe to discharge at this time as patient continues to exhibit signs of psychosis, and express psychosis symptoms. Patient requires continued inpatient care because of current psychosis, and requires inpatient level of care to stabilize to no longer be gravely disabled due to mental illness. Patient is unable to communicate her basic needs, unable to test reality, and continues to require prompting and direction from staff for ADLs. Patient exhibits inability to provide for herself, neglecting self-care, withdrawn from social interactions, currently shows inability to maintain any appropriate aspect of personal responsibility as an adult. Support system has inability to manage functional impairment at lower level of care. Patient could benefit from residential program for support after discharge. Patient could benefit from continued inpatient hospitalization for crisis stabilization, safety, and medication evaluation. Plan: 1. Psychotropic medications: After reviewing options, risks, and benefits patient agrees to continue current medications. No medication changes at this time as more time is needed to determine ongoing tolerability and efficacy. Plan is to continue to observe patient for response and side effects from medications, and ongoing monitoring and evaluation. 2. Review with patient informed consent and recommendations for psychotropic medication treatment listed below 3. Labs: no additional labs at this time 4. Therapy: continue milieu and group therapy 5. Further investigation including gathering information from patients relatives and review of past case records to inform treatment plan. 6. Safety/Wellness plan and follow-up outpatient appointments to be established prior to discharge. Next steps are for patient to meet with acute care clinical nurse specialist to plan a safe discharge plan and establish outpatient services for ongoing treatment. 7. Confer with inpatient treatment team regarding treatment plan. 8. Psychosocial stressors addressed through casework specialist 9. Legal status: [facility] 10. Consider discharge this week if patient is in stable condition, safe, and has a safe discharge plan. PSYCHOTROPIC MEDICATION TREATMENT INFORMED CONSENT and RECOMMENDATIONS: Review nature of condition, diagnosis, and prognosis. Review nature and purpose of psychotropic medication treatment. Review type of psychotropic medications being ordered. Review risk and benefits of psychotropic medication treatment. Review probable length of time patient will need to take medications. Review risk and benefits of not undergoing psychotropic medication treatment. Review alternative treatments to psychotropic medications. Review psychotropic medications contraindications, drug-drug interactions, side effects, and importance of reporting any side effects to a psychiatric provider or nurse during inpatient hospitalization, and upon discharge to patients psychiatric outpatient provider, primary care provider, or other health day care teacher. Review importance of asking a nurse, psychiatric provider, or primary care provider any questions or problems concerning the psychotropic medications. Verify patient understands the information that has been provided, and understands, accepts, and agrees to psychotropic medications. Review patients safety plan and importance of patient to report to staff while hospitalized if patient is ever a danger to self/others, or unable to care for self, and upon discharge, the importance for patient to contact [facility] or [facility], or go to the nearest emergency room, if patient is ever a danger to self/others, or unable to care for self. Recommend that upon discharge patient establish medication management treatment with a psychiatric provider, establishes routine therapy appointments, and follow-up with primary care provider. Verify patient understands and agrees to these recommendations. 02/02/19 08:10 Subjective: Following up with patient for evaluation of psychosis and safety. Patient whispers, "Doing really, really, well. Am I discharging today?" Patient reports no side effects from current medications, and agrees to continue current medications. Patient expresses interest in discharging to homeless skilled nursing. Reports she can be safe there. Patient agrees to consider long-term residential treatment. Objective: Vital Signs Temp Pulse Resp BP Pulse Ox 36.3 C 77 14 100/63 97 02/02/19 06:00 02/02/19 06:00 02/02/19 06:00 02/02/19 06:00 02/02/19 06:00 NURSING REPORT: Consulted with nursing for update on patients progress in treatment. Nurses report patient is engaged in treatment, attends some groups; slept 8 hours; expresses the following psychiatric symptoms: anxious; exhibits the following psychiatric symptoms: unable to test reality, disorganized, loose associations, nonsensical, thought blocking; is eating all meals, requires continued prompting and direction from staff for ADLs, and is unable to communicate her basic needs; is agreeable to medications as prescribed with no report of side effects, with no s/s of EPS/akathisia, and denies SI/HI, denies A /V hallucinations, and reports delusions. MD REPORT FROM WEEKEND: Improved since admission, but about the same as last weekend. Not sure additional Risperdal is beneficial. Lowered back to 4 mg daily and switched to HS d/t sedation. Patient in need of better dispo plan. CARE COORDINATION: Patients support system has inability to manage functional impairment at lower level of care. CC over weekend worked on options including [facility] residential and [facility]. MSE: The patient is a well-nourished female looking stated chronological age. Attire is appropriate dress is casual. Grooming status is inappropriate and disheveled. Ambulation is independent. Gait is normal and coordinated. Posture is normal. Eye contact is inappropriate and staring. Motor activity is appropriate with purposeful, organized, coordinated movements; with no involuntary movements. Attitude is cooperative. Patient appears attentive and relates well to this interviewer. Language production is spontaneous. Rate is hesitant. Latency of response is prolonged. Articulation is clear, tone is soft and quiet. Patient reports mood as okay with flat, constricted, and inappropriate affect. Patients thought process is disorganized, non-linear and illogical, with loose associations, nonsensical, and exhibits thought blocking Patient does not report suicidal/homicidal thoughts, ideas, or plans. Patient denies auditory, visual hallucinations. Patient reports delusions. Patient does not appear to be attending to internal stimuli. Patients attention and concentration are poor. Patient is oriented to person, place, and time. Patients insight is poor. Patients judgment is poor. - Time Spent With Patient Time Spent With Patient: 15 minutes, met with patient individually. - Pending Discharge Pending Discharge Within 24 Hours: No Pending Discharge Within 48 Hours: No ICD10 Worksheet Patient Problems: Problems Problem Status Onset Schizoaffective disorder Chronic PTSD (post-traumatic stress disorder) Chronic
[2019-02-02] MEDS: NICOTINE POLACRILEX 2 MG GUM B PRN ×2 (10:09→14:54)
--- NOTE | 2019-02-02 13:17 | ASMTBHDC ---
Notes Note: Notes: CC met with pt. briefly. Pt. attended treatment team meeting this morning. Pt. reports feeling ready to discharge. Pt. stated she is able to get to her follow up appointments and is willing to continue taking her medications as prescribed. CC reached out to [facility] about pt staying there after discharge. Pt. is not able to stay at [facility] at they only allow up to the age of 21. [facility] stated pt. would have to stay at the adult [facility] [place] [facility]. Pt. is able to attend their drop in center for food, laundry, internet access, hygiene items, medical care, legal services, and more. Per provider, pt will discharge to her follow up appointment on Saturday. Pt's follow up appointments are as follows: Stephan Viveros Saturday02/04/19 at 3:45pm, check in 3:[address] Sullivan Saturday02/06/19 at 12:45 pm, check in at 12:30 pm. Date Signed: 02/02/2019 01:16 PM Electronically Signed By:Danielle Kingsley
[2019-02-02] MEDS: ACETAMINOPHEN 325 MG TAB PO PRN (17:48)
[2019-02-02] MEDS: RISPERIDONE 2 MG ODT TAB SL SCH (21:00)
[2019-02-02] MEDS: MELATONIN 3 MG TAB PO PRN (21:01)
[2019-02-03] MEDS: LORazepam 0.5 MG TAB PO PRN (06:30)
--- NOTE | 2019-02-03 08:04 | SOAPPROG ---
SOAP Progress Note Assessment/Plan: Assessment: Schizoaffective Disorder, Bipolar Type. Improvement noted (see subjective/ objective note). Patient could benefit from continued inpatient hospitalization to ensure continuity of care; resident care coordinator walking her to her outpatient follow-up appointment at [facility] following discharge tomorrow. Plan: 1. Psychotropic medications: After reviewing options, risks, and benefits patient agrees to continue current medications. No medication changes at this time as more time is needed to determine ongoing tolerability and efficacy. Plan is to continue to observe patient for response and side effects from medications, and ongoing monitoring and evaluation. 2. Review with patient informed consent and recommendations for psychotropic medication treatment listed below 3. Labs: no additional labs at this time 4. Therapy: continue milieu and group therapy 5. Further investigation including gathering information from patients relatives and review of past case records to inform treatment plan. 6. Safety/Wellness plan and follow-up outpatient appointments to be established prior to discharge. Next steps are for patient to meet with animal caregiver to plan a safe discharge plan and establish outpatient services for ongoing treatment. 7. Confer with inpatient treatment team regarding treatment plan. 8. Psychosocial stressors addressed through renal case manager 9. Legal status: [facility] 10. Consider discharge Saturday if patient is in stable condition, safe, and has a safe discharge plan. PSYCHOTROPIC MEDICATION TREATMENT INFORMED CONSENT and RECOMMENDATIONS: Review nature of condition, diagnosis, and prognosis. Review nature and purpose of psychotropic medication treatment. Review type of psychotropic medications being ordered. Review risk and benefits of psychotropic medication treatment. Review probable length of time patient will need to take medications. Review risk and benefits of not undergoing psychotropic medication treatment. Review alternative treatments to psychotropic medications. Review psychotropic medications contraindications, drug-drug interactions, side effects, and importance of reporting any side effects to a psychiatric provider or nurse during inpatient hospitalization, and upon discharge to patients psychiatric outpatient provider, primary care provider, or other health nurse wound care. Review importance of asking a nurse, psychiatric provider, or primary care provider any questions or problems concerning the psychotropic medications. Verify patient understands the information that has been provided, and understands, accepts, and agrees to psychotropic medications. Review patients safety plan and importance of patient to report to staff while hospitalized if patient is ever a danger to self/others, or unable to care for self, and upon discharge, the importance for patient to contact [facility] or [facility], or go to the nearest emergency room, if patient is ever a danger to self/others, or unable to care for self. Recommend that upon discharge patient establish medication management treatment with a psychiatric provider, establishes routine therapy appointments, and follow-up with primary care provider. Verify patient understands and agrees to these recommendations. 02/03/19 08:02 Subjective: Following up with patient for evaluation of psychosis and safety. Patient states, "Doing really, really, good. I look forward to discharging." Patient reports no side effects from current medications, and agrees to continue current medications. Patient reports she plans to go to the homeless senior care after discharge. Patient agrees to continue current medications after discharge , and agrees to go with resident care coordinator to her appointment tomorrow at [facility] following discharge. Objective: Vital Signs Temp Pulse Resp BP Pulse Ox 36.5 C 72 14 97/53 L 97 02/03/19 06:00 02/03/19 06:00 02/03/19 06:00 02/03/19 06:00 02/03/19 06:00 NURSING REPORT: Consulted with nursing for update on patients progress in treatment. Nurses report patient is engaged in treatment, attends groups; slept 8 hours; expresses the following psychiatric symptoms: mild anxiety; exhibits the following psychiatric symptoms: anxious; is agreeable to medications as prescribed with no report of side effects, with no s/s of EPS/ akathisia, and denies SI/HI, denies A/V hallucinations, and denies delusions. MSE: The patient is a well-nourished female looking stated chronological age. Attire is appropriate dress is casual. Grooming status is appropriate. Ambulation is independent. Gait is normal and coordinated. Posture is normal. Eye contact is appropriate. Motor activity is appropriate with purposeful, organized, coordinated movements; with no involuntary movements. Attitude is cooperative. Patient appears attentive and relates well to this interviewer. Language production is spontaneous. R/R/V normal. Articulation is clear, tone is soft and quiet. Patient reports mood as okay with congruent affect. Patients thought process is linear and logical with no signs of formal thought disorder. Patient does not report suicidal/homicidal thoughts, ideas, or plans. Patient denies auditory, visual hallucinations. Patient denies delusions. Patient does not appear to be attending to internal stimuli. Patients attention and concentration are fair. Patient is oriented to person, place, time, and situation. Patients insight is fair. Patients judgment is fair. - Time Spent With Patient Time Spent With Patient: 15 minutes, met with patient individually. - Pending Discharge Pending Discharge Within 24 Hours: Yes Pending Discharge Within 48 Hours: No Pending Discharge Date: 02/04/19 Pending Discharge Time: 11:00 ICD10 Worksheet Patient Problems: Problems Problem Status Onset Schizoaffective disorder Chronic PTSD (post-traumatic stress disorder) Chronic
--- NOTE | 2019-02-03 13:47 | ASMTCMCOM ---
CM Note CM Note Notes: CC confirmed that client was not accepted into [facility] due to insurance/self pay reasons ($9,800) month. Client presents slightly better than previous days. Client will D/C to her mental health appt at [facility] on Saturday. Date Signed: 02/03/2019 01:46 PM Electronically Signed By:Alex Beltran
[2019-02-03] MEDS: MELATONIN 3 MG TAB PO PRN (19:24)
[2019-02-03] MEDS: RISPERIDONE 2 MG ODT TAB SL SCH (19:24)
[2019-02-03] MEDS: NICOTINE POLACRILEX 2 MG GUM B PRN (19:24)
[2019-02-03] MEDS: ACETAMINOPHEN 325 MG TAB PO PRN (20:31)
[2019-02-04] MEDS: ACETAMINOPHEN 325 MG TAB PO PRN ×3 (02:37→11:50)
[2019-02-04 05:57] VITALS: BP 102/69
[2019-02-04] MEDS: LORazepam 0.5 MG TAB PO PRN (06:13)
--- NOTE | 2019-02-04 09:17 | BDS ---
[f rep st] BEHAVIORAL HEALTH DISCHARGE SUMMARY REASON FOR ADMISSION: From the ED note dated 01/09/2019, the patient with a history of schizoaffective disorder and PTSD presented to the emergency department on an M1 hold from [facility] with complaints of paranoia , hallucinations and being gravely disabled. The patient reported to medication nonadherence, on lithium and Seroquel. The patient was admitted involuntarily and on an M1 hold due to being gravely disabled due to a mental illness. The patient was admitted for safety, crisis stabilization, and medication management. ADMITTING DIAGNOSES: 1. Schizoaffective disorder. 2. PTSD, posttraumatic stress disorder. ADMISSION PHYSICAL EXAM: The patient was seen on 01/09/2019, for history and physical for medical clearance for inpatient psychiatric hospitalization and treatment. The patient was medically cleared for inpatient psychiatric hospitalization and treatment. For further details, please refer to a history and physical document dated 01/09/2019. ADMISSION LABS: 1. CBC within normal limits except the monocytes were low at 4.0, absolute monocytes were low at 0.23. 2. BMP within normal limits. 3. Liver function within normal limits. 4. TSH within normal limits at 2.300. 5. Beta-hCG qualitative test negative. 6. Specimen hemolysis 162. 7. Toxicology screen negative for all substances screened. Negative for ethyl alcohol. MAJOR PROCEDURES OR TESTS: EKG performed on 01/09/2019, sinus rhythm noted and QTc interval 457 milliseconds. HOSPITAL COURSE: The most prominent symptoms and behaviors while the patient was here were psychosis, notably disorganized thought process. The patient answered interview questions nonsensical. The patient also reported delusions. At times, patient appeared to be attending to internal stimuli. The patient had very poor judgment, poor insight. Treatment modalities utilized were milieu and group therapy. Gate was continued to target mood symptoms. The patient showed no improvement at therapeutic levels of lithium. Gate was discontinued. Seroquel was continued to target mood symptoms. The patient showed no improvement with titration of Seroquel. Seroquel was discontinued. Risperidone was started and titrated to 4 mg p.o. at bedtime, was tolerated with no reported side effects, and with good response. Patient has improved considerably. Patient reports she has improved since admission, states to be in stable condition, feels safe to discharge, and she contracts for safety. Patients response to treatment was good. There were no adverse or unexpected results of treatment. The patient was safe throughout stay, active in treatment , engaged in groups, and was appropriate with staff. Care coordinators report patient has been denied at both [facility] and [facility] due to insurance. Patient to discharge to [facility], and patient agrees with this plan. Patient met with treatment team prior to discharge to assess readiness to discharge and review discharge plan. The treatment team consensus is the patient in stable condition, has a safe discharge plan, and is ready to discharge today. CONDITION AT DISCHARGE: Patient is in stable condition and is no longer a danger to self or others, and is not gravely disabled due to mental illness. Patient is no longer in need of inpatient level of care, and can be safely and effectively treated within the community. The patients level of risk at time of discharge is low. MSE: The patient is a well-nourished female looking stated chronological age. Attire is appropriate dress is casual. Grooming status is appropriate. Ambulation is independent. Gait is normal and coordinated. Posture is normal. Eye contact is appropriate. Motor activity is appropriate with purposeful, organized, coordinated movements; with no involuntary movements. Attitude is cooperative. Patient appears attentive and relates well to this interviewer. Language production is spontaneous. R/R/V normal. Articulation is clear, tone is soft and quiet. Patient reports mood as okay with congruent affect. Patients thought process is linear and logical with no signs of formal thought disorder. Patient does not report suicidal/ homicidal thoughts, ideas, or plans. Patient denies auditory, visual hallucinations. Patient denies delusions. Patient does not appear to be attending to internal stimuli. Patients attention and concentration are fair. Patient is oriented to person, place, time, and situation. Patients insight is fair. Patients judgment is fair. DISCHARGE DIAGNOSES: 1. Schizoaffective disorder. 2. PTSD, posttraumatic stress disorder. CURRENT MEDICATIONS: After reviewing options, risks and benefits with the patient, the patient agrees to continue risperidone 4 mg p.o. at bedtime. The patient requests prescription for this medication at time of discharge. A prescription for 30 days is provided. Prescription is reviewed with the patient at time of discharge to ensure accuracy and patient understanding. DISPOSITION: The patient left hospital independently and voluntarily with health care technician to be walked to outpatient [facility] appointment [facility]. Patient plans to stay at [facility] in [place], [place] following discharge. wedding coordinator reported patient denied at both [facility] and [facility] due to insurance. FOLLOWUP: wedding coordinator reports the appropriate outpatient follow-up services have been established and outpatient appointments have been scheduled. The patient received written instructions with times and dates of outpatient follow-up appointments. The following follow-up recommendations were provided to the patient at discharge: Continue psychotropic medications as prescribed and attend appointments as scheduled. Report any side effects to a psychiatric outpatient provider, a primary care provider, or other health health care consultant. Address any questions or problems concerning the psychotropic medications with a psychiatric outpatient provider, a primary care provider, or other health health care consultant. Contact [facility] or [facility], or go to the nearest emergency room, if you are ever a danger to yourself/others, or unable to care for yourself. As soon as possible, establish a routine medication management treatment with a psychiatric provider, establish routine therapy appointments, and follow-up with a primary care provider. LEGAL COURSE: The patient was admitted on an M1 hold for involuntary psychiatric hospitalization. Patient was then placed on a short-term certification. Patient discharged today independently and voluntarily, and short-term certification was terminated at time of discharge. ATTITUDE AT TIME OF DISCHARGE: The patients attitude was positive at time of discharge, and patient reports looking forward to discharging today. The patient reports she feels safe to discharge, is no longer a danger to herself or others, is in stable condition, and contracts for safety. Patient states she will continue medications as prescribed, and establish medication management treatment with an outpatient provider after discharge. Patient reports she understands the information that has been provided to her, and she understands, accepts, and agrees to psychotropic medications. Patient describes internal protective factors as the coping skills she has learned while hospitalized here, and she plans to continue to practice these coping skills after discharge. LAB AND STUDIES: There were no pending labs or studies at time of discharge. ADVANCE DIRECTIVES: There were no advance directives on file, and patient was full code during this hospitalization. The following psychotropic medication treatment informed consent and recommendations were provided to the patient at time of discharge. Patient reports she understands, accepts, and agrees to the information that has been provided. PSYCHOTROPIC MEDICATION TREATMENT INFORMED CONSENT and RECOMMENDATIONS: Review nature of condition, diagnosis, and prognosis. Review nature and purpose of psychotropic medication treatment. Review type of psychotropic medications being prescribed. Review risk and benefits of psychotropic medication treatment. Review probable length of time will need to take medications. Review risk and benefits of not undergoing psychotropic medication treatment. Review alternative treatments to psychotropic medications. Review psychotropic medications contraindications, side effects, and importance of reporting any side effects to a psychiatric provider, primary care provider, or other health health care consultant. Review importance of her asking a psychiatric provider or primary care provider any questions or problems concerning the psychotropic medications. Review importance of reporting to a psychiatric provider, primary care provider, or other health health care consultant if she plans to or becomes . Review safety plan and the importance to contact [facility] or [facility] , or go to the nearest emergency room, if ever a danger to yourself/others, or unable to care for yourself. Recommend upon discharge to establish routine medication management treatment with a psychiatric provider, establish routine therapy appointments, and follow-up with a primary care provider. Verify patient understands, accepts, and agrees to the information that has been provided. /[id number]/MODL MTDD
== END 2019-02-04 15:00 | disposition home or self-care (01) | DRG 882 ==
LOC: BBEH 20:05
PROVIDERS: ADMIT Registered Nurse; ATTEND Registered Nurse
DX: F43.10 Post-traumatic stress disorder, unspecified (principal); F25.0 Schizoaffective disorder, bipolar type; Z59.0 Homelessness; Z56.0 Unemployment, unspecified
CPT/HCPCS: 80305; G0480

== ENCOUNTER 2019-02-12 13:43 | Inpatient (IN) | payer OTHER ==
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
[2019-02-12 17:25] LABS: PLATELET COUNT 284 10^3/uL (150-400)
[2019-02-12] MEDS ORDERED: LORazepam 1 MG TAB PO ONE (20:09)
[2019-02-12] MEDS ORDERED: risperiDONE 1 MG TAB PO ONE (20:09)
[2019-02-12] MEDS ORDERED: ACETAMINOPHEN 500 MG TAB ONE (21:23)
[2019-02-12] MEDS ORDERED: ACETAMINOPHEN 500 MG TAB PO ONE (21:26)
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
--- NOTE | 2019-02-12 21:56 | ASMTTCLDSP ---
TLC Discharge Disposition Disposition: Answers: Admit Discharge Concerns/Recommendations: Notes: In consultation with [facility] ED physician, Min Giron MD and on-call psychiatrist, Dana Feliz MD, both concurred that pt appears to meet 27-65 criteria requiring psychiatric hospitalization as pt appears to be at risk of harm to gravely disabled due to a mental illness condition. For inpatient Dana Feliz MD admission, the following psychiatrist agreed to accept patient for admission [facility] Date Signed: 02/12/2019 09:55 PM Electronically Signed By:Daiana Diaz
[2019-02-12] MEDS ORDERED: MAGNESIUM HYDROXIDE 30 ML UDCUP PO PRN (22:20)
[2019-02-12] MEDS ORDERED: OLANZapine DISINTEGR 5 MG TAB PO PRN (22:20)
[2019-02-12] MEDS ORDERED: MAG HYDROX/AL HYDROX/SIMETH 30 ML UDCUP PO PRN (22:20)
[2019-02-12] MEDS ORDERED: BENZTROPINE MESYLATE 1 MG TAB PO PRN (22:20)
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
[2019-02-13] MEDS: LORazepam 0.5 MG TAB PO PRN (08:19)
[2019-02-13] MEDS: risperiDONE 1 MG TAB PO SCH ×2 (08:19→20:18)
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
--- NOTE | 2019-02-13 14:24 | ASMTCMCOM ---
CM Note CM Note Notes: CC met with ct. to develop MTP. Ct. appeared overwhelmed and disorganized. She was having a hard time expressing her thoughts and wanted to end the meeting shortly after it began. CC spoke with [facility]. She is planning on dropping ct. of her insurance. Kpail phone number is [phone]. Date Signed: 02/13/2019 02:23 PM Electronically Signed By:Radha Rapp
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
[2019-02-13] MEDS ORDERED: risperiDONE 2 MG TAB PO SCH (21:00)
[2019-02-14] MEDS: ACETAMINOPHEN 325 MG TAB PO PRN ×4 (02:37→23:06)
[2019-02-14] MEDS: risperiDONE 1 MG TAB PO SCH ×2 (09:05→20:11)
--- NOTE | 2019-02-14 14:20 | ASMTCMCOM ---
CM Note CM Note Notes: Pt. reports feeling "good, have a lot to write about", pt added she is planning on writing a letter to her mom. Pt. reports she slept "really good and dreamt". Pt. reports getting enough to eat and attending "all groups". Pt. reports she would "rather not be taking any medications". Pt. reports "need to be leaving this place". Pt. reports having an "appointment" in [place] on 03/12/19. Pt. later stated the appointment was a court date about her son. Pt. reports she "need to be out of here". Pt. reports she can stay in her own home. Pt. [facility]. Pt. denied SI, HI, AVH and paranoia. Pt. presents as alert, somewhat distressed, bit anxious, staring eye contact, disheveled, evasive, and cooperative. Staff report pt. sleeping 8.5 hours and being medication compliant. Pt. refused all her evening medications, but did accept her medication this morning. Staff report pt. refusing her UA and blood draw. CC to reach out to [facility] for a follow up appointment for pt. Date Signed: 02/14/2019 02:20 PM Electronically Signed By:Danielle Kingsley
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
[2019-02-14] MEDS: LORazepam 0.5 MG TAB PO PRN (23:47)
[2019-02-15] MEDS ORDERED: traMADol 50 MG TAB PO PRN (00:20)
[2019-02-15] MEDS ORDERED: IBUPROFEN 800 MG TAB PO ONE (00:27)
[2019-02-15] MEDS: IBUPROFEN 800 MG TAB PO PRN ×3 (00:30→17:03)
[2019-02-15] MEDS: risperiDONE 1 MG TAB PO SCH ×2 (08:50→21:27)
--- NOTE | 2019-02-15 08:55 | HOSPPROG ---
Hospitalist Progress Note Assessment/Plan: #Tooth pain -no evidence of infection -needs dental appt -Added OralGel -cont Advil, APAP Please call if questions Subjective: c/o left lower tooth pain. No F/C/S Objective: Vital Signs Temp Pulse Resp BP Pulse Ox 36.3 C 81 16 100/50 L 97 02/15/19 06:00 02/15/19 06:00 02/15/19 06:00 02/15/19 06:00 02/14/19 00:30 - Time Spent With Patient Time Spent with Patient: greater than 25 minutes Time Spent with Patient: Greater than 25 minutes spent on this patients care, greater than 50% of time spent counseling, educating, and coordinating care regarding the above mentioned plan. - Physical Exam Constitutional: unkempt Eyes: PERRL Ears, Nose, Mouth, Throat: moist mucous membranes, other (poor dentetion. No overt erythema or abscss. No cervical or submandibular LAD) Cardiovascular: regular rate and rhythym Respiratory: no respiratory distress Gastrointestinal: normoactive bowel sounds Genitourinary: no bladder fullness Skin: warm Musculoskeletal: full muscle strength Neurologic: CN II-XII Intact Psychiatric: depressed, flat affect ICD10 Worksheet Patient Problems: Problems Problem Status Onset Psychosis Acute Schizophrenia Acute
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
[2019-02-15] MEDS: BENZOCAINE 20%/MENTHOL (ORAJEL) GEL 11.9GM TUBE TP PRN (18:07)
[2019-02-15] MEDS: ACETAMINOPHEN 325 MG TAB PO PRN (18:44)
[2019-02-16 03:36] LABS: HEPATITIS B CORE AB IGM NEGATIVE (NEGATIVE); HEPATITIS C ANTIBODY TOTAL NEGATIVE (NEGATIVE); HIV TYPE 1 AND 2 NEGATIVE (NEGATIVE)
[2019-02-16] MEDS: BENZOCAINE 20%/MENTHOL (ORAJEL) GEL 11.9GM TUBE TP PRN ×3 (07:41→23:56)
[2019-02-16] MEDS: IBUPROFEN 800 MG TAB PO PRN ×2 (07:41→16:50)
[2019-02-16] MEDS: risperiDONE 1 MG TAB PO SCH ×3 (07:42→11:07)
--- NOTE | 2019-02-16 07:47 | SOAPPROG ---
SOAP Progress Note Assessment/Plan: Assessment: Schizoaffective Disorder, Bipolar Type. No improvement noted (see subjective/ objective note). Patient is not safe to discharge at this time as patient continues to exhibit signs of psychosis, and express psychosis symptoms. Patient requires continued inpatient care because of current psychosis, and requires inpatient level of care to stabilize in order to no longer be gravely disabled due to mental illness. Patient exhibits persistent inability to perform essential function due to psychotic condition. Patient is unable to attend to ADLs appropriately and patient is unable to communicate basic needs. Patient refusing needed medications. Patients support system has inability to manage functional impairment at lower level of care. Patient could benefit from continued inpatient hospitalization for crisis stabilization, safety, and medication evaluation. Plan: 1. Psychotropic medications: After reviewing options, risks, and benefits patient does not agree to continue current medications. No medication changes at this time as more time is needed to determine ongoing tolerability and efficacy. Plan is to continue to observe patient for response and side effects from medications, and ongoing monitoring and evaluation. Consider COM if patient continues to refuse medications. 2. Review with patient informed consent and recommendations for psychotropic medication treatment listed below 3. Labs: no additional labs at this time 4. Therapy: continue milieu and group therapy 5. Further investigation including gathering information from patients relatives and review of past case records to inform treatment plan. 6. Safety/Wellness plan and follow-up outpatient appointments to be established prior to discharge. Next steps are for patient to meet with continuum of care manager to plan a safe discharge plan and establish outpatient services for ongoing treatment. 7. Confer with inpatient treatment team regarding treatment plan. 8. Psychosocial stressors addressed through supportive employment case manager 9. Legal status: [facility] 10. Consider discharge next week if patient is in stable condition, safe, and has a safe discharge plan. PSYCHOTROPIC MEDICATION TREATMENT INFORMED CONSENT and RECOMMENDATIONS: Review nature of condition, diagnosis, and prognosis. Review nature and purpose of psychotropic medication treatment. Review type of psychotropic medications being ordered. Review risk and benefits of psychotropic medication treatment. Review probable length of time patient will need to take medications. Review risk and benefits of not undergoing psychotropic medication treatment. Review alternative treatments to psychotropic medications. Review psychotropic medications contraindications, drug-drug interactions, side effects, and importance of reporting any side effects to a psychiatric provider or nurse during inpatient hospitalization, and upon discharge to patients psychiatric outpatient provider, primary care provider, or other health transitions rn care coordinator. Review importance of asking a nurse, psychiatric provider, or primary care provider any questions or problems concerning the psychotropic medications. Verify patient understands the information that has been provided, and understands, accepts, and agrees to psychotropic medications. Review patients safety plan and importance of patient to report to staff while hospitalized if patient is ever a danger to self/others, or unable to care for self, and upon discharge, the importance for patient to contact [facility] or [facility], or go to the nearest emergency room, if patient is ever a danger to self/others, or unable to care for self. Recommend that upon discharge patient establish medication management treatment with a psychiatric provider, establishes routine therapy appointments, and follow-up with primary care provider. Verify patient understands and agrees to these recommendations. 02/16/19 07:45 Subjective: Following up with patient for evaluation of psychosis and safety. Patient states, "Hi, I am doing really, really, well today." Patient reports no side effects from current medications, and does not agree to continue current medications. Patient states, "I am not going to take any medications." Objective: Vital Signs Temp Pulse Resp BP Pulse Ox 36.3 C 81 16 100/50 L 97 02/15/19 06:00 02/15/19 06:00 02/15/19 06:00 02/15/19 06:00 02/14/19 00:30 NURSING REPORT: Consulted with nursing for update on patients progress in treatment. Nurses report patient is not engaged in treatment, is attending some groups; slept 8 hours; expresses the following psychiatric symptoms: paranoid delusions; exhibits the following psychiatric symptoms: anxious, disorganized, paranoid, and delusional; is not agreeable to medications as prescribed today with no report of side effects, with no s/s of EPS/akathisia, and denies SI/HI, denies A/V hallucinations, and reports delusions. MD REPORT FROM WEEKEND: Paranoid and delusional. Will need residential or [place] this time. MSE: The patient is a well-nourished female looking stated chronological age. Attire is appropriate dress is hospital garb. Grooming status is appropriate. Ambulation is independent. Gait is normal and coordinated. Posture is normal. Eye contact is appropriate. Motor activity is appropriate with purposeful, organized, coordinated movements; with no involuntary movements. Attitude is cooperative. Patient appears distracted and does not relate well to this interviewer. Language production is unspontaneous. Rate is hesitant, latency of response is prolonged, with low volume. Articulation is clear. Patient reports mood as okay with constricted, flat and incongruent affect. Patients thought process is non-linear and illogical, with through blocking. Patient does not report suicidal/homicidal thoughts, ideas, or plans. Patient denies auditory, visual hallucinations. Patient reports delusions. Patient does appear to be attending to internal stimuli. Patients attention and concentration are poor. Patient is oriented to person, place, time. Patients insight is poor. Patients judgment is poor. - Time Spent With Patient Time Spent With Patient: 15 minutes, met with patient individually. - Pending Discharge Pending Discharge Within 24 Hours: No Pending Discharge Within 48 Hours: No ICD10 Worksheet Patient Problems: Problems Problem Status Onset Psychosis Acute Schizophrenia Acute
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
[2019-02-16] MEDS: risperiDONE 2 MG TAB PO SCH (20:21)
[2019-02-16] MEDS: ACETAMINOPHEN 325 MG TAB PO PRN ×2 (20:22→23:55)
[2019-02-17] MEDS: BENZOCAINE 20%/MENTHOL (ORAJEL) GEL 11.9GM TUBE TP PRN ×4 (00:17→14:15)
[2019-02-17] MEDS: IBUPROFEN 800 MG TAB PO PRN ×3 (00:18→21:36)
--- NOTE | 2019-02-17 07:39 | SOAPPROG ---
SOAP Progress Note Assessment/Plan: Assessment: Schizoaffective Disorder, Bipolar Type. No improvement noted (see subjective/ objective note). Patient is not safe to discharge at this time as patient continues to exhibit signs of psychosis, and express psychosis symptoms. Patient requires continued inpatient care because of current psychosis, and requires inpatient level of care to stabilize in order to no longer be gravely disabled due to mental illness. Patient exhibits persistent inability to perform essential function due to psychotic condition. Patient is unable to attend to ADLs appropriately and patient is unable to communicate basic needs. Patient's support system has inability to manage functional impairment at lower level of care. Patient could benefit from continued inpatient hospitalization for crisis stabilization, safety, and medication evaluation. Plan: 1. Psychotropic medications: After reviewing options, risks, and benefits patient does not agree to continue current medications. No medication changes at this time as more time is needed to determine ongoing tolerability and efficacy. Plan is to continue to observe patient for response and side effects from medications, and ongoing monitoring and evaluation. 2. Review with patient informed consent and recommendations for psychotropic medication treatment listed below 3. Labs: no additional labs at this time 4. Therapy: continue milieu and group therapy 5. Further investigation including gathering information from patients relatives and review of past case records to inform treatment plan. 6. Safety/Wellness plan and follow-up outpatient appointments to be established prior to discharge. Next steps are for patient to meet with med care manager to plan a safe discharge plan and establish outpatient services for ongoing treatment. 7. Confer with inpatient treatment team regarding treatment plan. 8. Psychosocial stressors addressed through home health care case manager 9. Legal status: [facility] 10. Consider discharge next week if patient is in stable condition, safe, and has a safe discharge plan. PSYCHOTROPIC MEDICATION TREATMENT INFORMED CONSENT and RECOMMENDATIONS: Review nature of condition, diagnosis, and prognosis. Review nature and purpose of psychotropic medication treatment. Review type of psychotropic medications being ordered. Review risk and benefits of psychotropic medication treatment. Review probable length of time patient will need to take medications. Review risk and benefits of not undergoing psychotropic medication treatment. Review alternative treatments to psychotropic medications. Review psychotropic medications contraindications, drug-drug interactions, side effects, and importance of reporting any side effects to a psychiatric provider or nurse during inpatient hospitalization, and upon discharge to patients psychiatric outpatient provider, primary care provider, or other health neurocritical care physician. Review importance of asking a nurse, psychiatric provider, or primary care provider any questions or problems concerning the psychotropic medications. Verify patient understands the information that has been provided, and understands, accepts, and agrees to psychotropic medications. Review patients safety plan and importance of patient to report to staff while hospitalized if patient is ever a danger to self/others, or unable to care for self, and upon discharge, the importance for patient to contact [facility] or [facility], or go to the nearest emergency room, if patient is ever a danger to self/others, or unable to care for self. Recommend that upon discharge patient establish medication management treatment with a psychiatric provider, establishes routine therapy appointments, and follow-up with primary care provider. Verify patient understands and agrees to these recommendations. 02/17/19 07:38 Subjective: Following up with patient for evaluation of psychosis and safety. Patient states, "Going good." Patient reports no side effects from current medications , and agrees to continue current medications. Objective: Vital Signs Temp Pulse Resp BP Pulse Ox 36.4 C 75 15 115/58 L 95 02/17/19 06:26 02/17/19 06:26 02/17/19 06:26 02/17/19 06:26 02/17/19 06:26 NURSING REPORT: Consulted with nursing for update on patients progress in treatment. Nurses report patient is engaged in treatment, is attending some groups; slept 8 hours; expresses the following psychiatric symptoms: paranoid delusions; exhibits the following psychiatric symptoms: anxious, disorganized, paranoid, and delusional; is agreeable to medications as prescribed with no report of side effects, with no s/s of EPS/akathisia, and denies SI/HI, denies A /V hallucinations, and reports delusions. MD REPORT FROM WEEKEND: Paranoid and delusional. Will need residential or [place] this time. MSE: The patient is a well-nourished female looking stated chronological age. Attire is appropriate dress is hospital garb. Grooming status is appropriate. Ambulation is independent. Gait is normal and coordinated. Posture is normal. Eye contact is appropriate. Motor activity is appropriate with purposeful, organized, coordinated movements; with no involuntary movements. Attitude is cooperative. Patient appears distracted and does not relate well to this interviewer. Language production is unspontaneous. Rate is hesitant, latency of response is prolonged, with low volume. Articulation is clear. Patient reports mood as okay with constricted, flat and incongruent affect. Patients thought process is non-linear and illogical, with thought blocking. Patient does not report suicidal/homicidal thoughts, ideas, or plans. Patient denies auditory, visual hallucinations. Patient reports delusions. Patient does appear to be attending to internal stimuli. Patients attention and concentration are poor. Patient is oriented to person, place, time. Patients insight is poor. Patients judgment is poor. - Time Spent With Patient Time Spent With Patient: 15 minutes, met with patient individually. - Pending Discharge Pending Discharge Within 24 Hours: No Pending Discharge Within 48 Hours: No ICD10 Worksheet Patient Problems: Problems Problem Status Onset Psychosis Acute Schizophrenia Acute
--- NOTE | 2019-02-17 13:27 | ASMTCMCOM ---
CM Note CM Note Notes: CC checked in with ct. who reported that she is doing "really good". She said that she would like to discharge as the admission was a mistake. She complained about a tooth ache. Affect is very flat. Date Signed: 02/17/2019 01:27 PM Electronically Signed By:Radha Rapp
[2019-02-17] MEDS: ACETAMINOPHEN 325 MG TAB PO PRN ×2 (14:23→18:52)
[2019-02-17] MEDS: risperiDONE 2 MG TAB PO SCH (21:24)
[2019-02-18] MEDS: IBUPROFEN 800 MG TAB PO PRN ×2 (05:25→15:53)
--- NOTE | 2019-02-18 07:33 | SOAPPROG ---
SOAP Progress Note Assessment/Plan: Assessment: Schizoaffective Disorder, Bipolar Type. No improvement noted (see subjective/ objective note). Patient is not safe to discharge at this time as patient continues to exhibit signs of psychosis, and express psychosis symptoms. Patient requires continued inpatient care because of current psychosis, and requires inpatient level of care to stabilize in order to no longer be gravely disabled due to mental illness. Patient exhibits persistent inability to perform essential function due to psychotic condition. Patient is unable to attend to ADLs appropriately and patient is unable to communicate basic needs. Patients support system has inability to manage functional impairment at lower level of care. Patient is vulnerable due to her underlying illness and discharge to homeless custodial is not a safe plan. Patient requires higher level of support and support needs to be in place prior to patients discharge. Patient could benefit from continued inpatient hospitalization for crisis stabilization, safety, and medication evaluation. Plan: 1. Psychotropic medications: After reviewing options, risks, and benefits patient agrees to continue current medications. No medication changes at this time as more time is needed to determine ongoing tolerability and efficacy. Plan is to continue to observe patient for response and side effects from medications, and ongoing monitoring and evaluation. 2. Review with patient informed consent and recommendations for psychotropic medication treatment listed below 3. Labs: no additional labs at this time 4. Therapy: continue milieu and group therapy 5. Further investigation including gathering information from patients relatives and review of past case records to inform treatment plan. 6. Safety/Wellness plan and follow-up outpatient appointments to be established prior to discharge. Next steps are for patient to meet with out of school hours care worker to plan a safe discharge plan and establish outpatient services for ongoing treatment. 7. Confer with inpatient treatment team regarding treatment plan. 8. Psychosocial stressors addressed through patient case manager 9. Legal status: [facility] 10. Consider discharge next week if patient is in stable condition, safe, and has a safe discharge plan. PSYCHOTROPIC MEDICATION TREATMENT INFORMED CONSENT and RECOMMENDATIONS: Review nature of condition, diagnosis, and prognosis. Review nature and purpose of psychotropic medication treatment. Review type of psychotropic medications being ordered. Review risk and benefits of psychotropic medication treatment. Review probable length of time patient will need to take medications. Review risk and benefits of not undergoing psychotropic medication treatment. Review alternative treatments to psychotropic medications. Review psychotropic medications contraindications, drug-drug interactions, side effects, and importance of reporting any side effects to a psychiatric provider or nurse during inpatient hospitalization, and upon discharge to patients psychiatric outpatient provider, primary care provider, or other health out of school hours care worker. Review importance of asking a nurse, psychiatric provider, or primary care provider any questions or problems concerning the psychotropic medications. Verify patient understands the information that has been provided, and understands, accepts, and agrees to psychotropic medications. Review patients safety plan and importance of patient to report to staff while hospitalized if patient is ever a danger to self/others, or unable to care for self, and upon discharge, the importance for patient to contact [facility] or [facility], or go to the nearest emergency room, if patient is ever a danger to self/others, or unable to care for self. Recommend that upon discharge patient establish medication management treatment with a psychiatric provider, establishes routine therapy appointments, and follow-up with primary care provider. Verify patient understands and agrees to these recommendations. 02/18/19 07:33 Subjective: Following up with patient for evaluation of psychosis and safety. Patient whispers, "I am doing really good." Patient reports no side effects from current medications, and agrees to continue current medications. Objective: Vital Signs Temp Pulse Resp BP Pulse Ox 36.4 C 63 14 97/57 L 97 02/18/19 00:30 02/18/19 00:30 02/18/19 00:30 02/18/19 00:30 02/18/19 00:30 NURSING REPORT: Consulted with nursing for update on patients progress in treatment. Nurses report patient is engaged in treatment, is attending some groups; slept 8 hours; expresses the following psychiatric symptoms: paranoid delusions; exhibits the following psychiatric symptoms: anxious, disorganized, paranoid, and delusional, attending to internal stimuli; is agreeable to medications as prescribed with no report of side effects; patient initially, at time of admission, was refusing medications; no taking as prescribed with no s/ s of EPS/akathisia, and denies SI/HI, denies A/V hallucinations, and reports delusions. RN REPORT: Patient observed by staff walking halls talking to herself and attending to internal stimuli. DISCHARGE PLANNING: Patient is vulnerable due to her underlying illness and discharge to homeless custodial is not a safe plan. Patient requires higher level of support and support needs to be in place prior to patients discharge. MD REPORT FROM WEEKEND: Paranoid and delusional. Will need residential or [place] this time. MSE: The patient is a well-nourished female looking stated chronological age. Attire is appropriate dress is hospital garb. Grooming status is appropriate. Ambulation is independent. Gait is normal and coordinated. Posture is normal. Eye contact is appropriate. Motor activity is appropriate with purposeful, organized, coordinated movements; with no involuntary movements. Attitude is cooperative. Patient appears distracted and does not relate well to this interviewer. Language production is unspontaneous. Rate is hesitant, latency of response is prolonged, with low volume. Articulation is clear. Patient reports mood as okay with constricted, flat and incongruent affect. Patients thought process is non-linear and illogical, with through blocking. Patient does not report suicidal/homicidal thoughts, ideas, or plans. Patient denies auditory, visual hallucinations. Patient reports delusions. Patient does appear to be attending to internal stimuli. Patients attention and concentration are poor. Patient is oriented to person, place, time. Patients insight is poor. Patients judgment is poor. - Time Spent With Patient Time Spent With Patient: 15 minutes, met with patient individually. - Pending Discharge Pending Discharge Within 24 Hours: No Pending Discharge Within 48 Hours: No ICD10 Worksheet Patient Problems: Problems Problem Status Onset Psychosis Acute Schizophrenia Acute
[2019-02-18] MEDS: risperiDONE 1 MG TAB PO SCH (08:25)
[2019-02-18] MEDS: ACETAMINOPHEN 325 MG TAB PO PRN ×2 (11:51→19:22)
--- NOTE | 2019-02-18 12:21 | ASMTCMCOM ---
CM Note CM Note Notes: CC was able to briefly check-in with client today. Client presents as non-alert, responding to internal stimuli, isolating to room, affect is flat and guarded. Client denies any feelings of anxiety, depression, AVH and S/I-H/I. Additionally, client describes her mood as "[I] am peaceful," as well as having a goal or participating in "more daily groups." Moreover, CC requested update on Medicaid status from co-workers, waiting on response.* Date Signed: 02/18/2019 12:20 PM Electronically Signed By:Alex Beltran
[2019-02-18] MEDS: BENZOCAINE 20%/MENTHOL (ORAJEL) GEL 11.9GM TUBE TP PRN ×2 (13:04→14:17)
[2019-02-18] MEDS: risperiDONE 2 MG TAB PO SCH (21:15)
[2019-02-19] MEDS: IBUPROFEN 800 MG TAB PO PRN ×2 (01:54→13:23)
--- NOTE | 2019-02-19 07:41 | SOAPPROG ---
SOAP Progress Note Assessment/Plan: Assessment: Schizoaffective Disorder, Bipolar Type. No improvement noted (see subjective/ objective note). Patient is not safe to discharge at this time as patient continues to exhibit signs of psychosis, and express psychosis symptoms. Patient requires continued inpatient care because of current psychosis, and requires inpatient level of care to stabilize in order to no longer be gravely disabled due to mental illness. Patient exhibits persistent inability to perform essential function due to psychotic condition. Patient is unable to attend to ADLs appropriately and patient is unable to communicate basic needs. Patients support system has inability to manage functional impairment at lower level of care. Patient is vulnerable due to her underlying illness and discharge to homeless senior care is not a safe plan. Patient requires higher level of support and support needs to be in place prior to patients discharge. Patient could benefit from continued inpatient hospitalization for crisis stabilization, safety, and medication evaluation. Plan: 1. Psychotropic medications: After reviewing options, risks, and benefits patient agrees to continue current medications and increase Risperdal M-tab QD dose to 2 mg. No medication changes at this time as more time is needed to determine ongoing tolerability and efficacy. Plan is to continue to observe patient for response and side effects from medications, and ongoing monitoring and evaluation. 2. Review with patient informed consent and recommendations for psychotropic medication treatment listed below 3. Labs: no additional labs at this time 4. Therapy: continue milieu and group therapy 5. Further investigation including gathering information from patients relatives and review of past case records to inform treatment plan. 6. Safety/Wellness plan and follow-up outpatient appointments to be established prior to discharge. Next steps are for patient to meet with small animal caretaker to plan a safe discharge plan and establish outpatient services for ongoing treatment. 7. Confer with inpatient treatment team regarding treatment plan. 8. Psychosocial stressors addressed through case management rn 9. Legal status: [facility] 10. Consider discharge next week if patient is in stable condition, safe, and has a safe discharge plan. PSYCHOTROPIC MEDICATION TREATMENT INFORMED CONSENT and RECOMMENDATIONS: Review nature of condition, diagnosis, and prognosis. Review nature and purpose of psychotropic medication treatment. Review type of psychotropic medications being ordered. Review risk and benefits of psychotropic medication treatment. Review probable length of time patient will need to take medications. Review risk and benefits of not undergoing psychotropic medication treatment. Review alternative treatments to psychotropic medications. Review psychotropic medications contraindications, drug-drug interactions, side effects, and importance of reporting any side effects to a psychiatric provider or nurse during inpatient hospitalization, and upon discharge to patients psychiatric outpatient provider, primary care provider, or other health home care and home health aides teacher. Review importance of asking a nurse, psychiatric provider, or primary care provider any questions or problems concerning the psychotropic medications. Verify patient understands the information that has been provided, and understands, accepts, and agrees to psychotropic medications. Review patients safety plan and importance of patient to report to staff while hospitalized if patient is ever a danger to self/others, or unable to care for self, and upon discharge, the importance for patient to contact [facility] or [facility], or go to the nearest emergency room, if patient is ever a danger to self/others, or unable to care for self. Recommend that upon discharge patient establish medication management treatment with a psychiatric provider, establishes routine therapy appointments, and follow-up with primary care provider. Verify patient understands and agrees to these recommendations. 02/19/19 07:44 Subjective: Following up with patient for evaluation of psychosis and safety. Patient speaks softly, "I am doing really really good." Patient reports no side effects from current medications, and agrees to continue current medications. Patient agrees to increase Risperdal M-tab to 2 mg po QD and 2 mg po QHS. Objective: Vital Signs Temp Pulse Resp BP Pulse Ox 36.7 C 65 18 99/54 L 97 02/19/19 00:30 02/19/19 00:30 02/19/19 00:30 02/19/19 00:30 02/19/19 00:30 NURSING REPORT: Consulted with nursing for update on patients progress in treatment. Nurses report patient is engaged in treatment, is attending some groups; slept 8 hours; expresses the following psychiatric symptoms: paranoid delusions; exhibits the following psychiatric symptoms: anxious, disorganized, paranoid, and delusional, attending to internal stimuli; is agreeable to medications as prescribed with no report of side effects, no s/s of EPS/ akathisia, and denies SI/HI, denies A/V hallucinations, and reports delusions. RN REPORT: Patient continues to be observed by staff walking halls talking to herself and attending to internal stimuli. DISCHARGE PLANNING: Patient is vulnerable due to her underlying illness and discharge to homeless senior care is not a safe plan. Patient requires higher level of support and support needs to be in place prior to patients discharge. MD REPORT FROM WEEKEND: Paranoid and delusional. Will need residential or [place] this time. MSE: The patient is a well-nourished female looking stated chronological age. Attire is appropriate dress is hospital garb. Grooming status is appropriate. Ambulation is independent. Gait is normal and coordinated. Posture is normal. Eye contact is appropriate. Motor activity is appropriate with purposeful, organized, coordinated movements; with no involuntary movements. Attitude is cooperative. Patient appears distracted and does not relate well to this interviewer. Language production is unspontaneous. Rate is hesitant, latency of response is prolonged, with low volume. Articulation is clear. Patient reports mood as okay with constricted, flat and incongruent affect. Patients thought process is non-linear and illogical, with through blocking. Patient does not report suicidal/homicidal thoughts, ideas, or plans. Patient denies auditory, visual hallucinations. Patient reports delusions. Patient does appear to be attending to internal stimuli. Patients attention and concentration are poor. Patient is oriented to person, place, time. Patients insight is poor. Patients judgment is poor. - Time Spent With Patient Time Spent With Patient: 15 minutes, met with patient individually. - Pending Discharge Pending Discharge Within 24 Hours: No Pending Discharge Within 48 Hours: No ICD10 Worksheet Patient Problems: Problems Problem Status Onset Psychosis Acute Schizophrenia Acute
[2019-02-19] MEDS: risperiDONE 2 MG TAB PO SCH ×2 (08:03→19:08)
[2019-02-19] MEDS: ACETAMINOPHEN 325 MG TAB PO PRN ×3 (08:03→19:07)
--- NOTE | 2019-02-19 13:26 | ASMTCMCOM ---
CM Note CM Note Notes: CC check-in with client. Client presents with flat affect and guarded. Client denies any feelings of anxiety, depression, AVH and S/I-H/I. Ct. is difficult to engage in conversation. She reported that her feet healed. Date Signed: 02/19/2019 01:26 PM Electronically Signed By:Radha Rapp
[2019-02-19] MEDS: BENZOCAINE 20%/MENTHOL (ORAJEL) GEL 11.9GM TUBE TP PRN (19:07)
--- NOTE | 2019-02-20 06:57 | SOAPPROG ---
SOAP Progress Note Assessment/Plan: Assessment: Schizoaffective Disorder, Bipolar Type. No improvement noted (see subjective/ objective note). Patient is not safe to discharge at this time as patient continues to exhibit signs of psychosis, and express psychosis symptoms. Patient requires continued inpatient care because of current psychosis, and requires inpatient level of care to stabilize in order to no longer be gravely disabled due to mental illness. Patient exhibits persistent inability to perform essential function due to psychotic condition. Patient is unable to attend to ADLs appropriately and patient is unable to communicate basic needs. Patients support system has inability to manage functional impairment at lower level of care. Patient is vulnerable due to her underlying illness and discharge to homeless custodial is not a safe plan. Patient requires higher level of support and support needs to be in place prior to patients discharge. Patient could benefit from continued inpatient hospitalization for crisis stabilization, safety, and medication evaluation. Plan: 1. Psychotropic medications: After reviewing options, risks, and benefits patient agrees to continue current medications. No medication changes at this time as more time is needed to determine ongoing tolerability and efficacy. Consider increasing Risperidone on Saturday to 2 mg QD and 3 mg HS. Plan is to continue to observe patient for response and side effects from medications, and ongoing monitoring and evaluation. 2. Review with patient informed consent and recommendations for psychotropic medication treatment listed below 3. Labs: no additional labs at this time 4. Therapy: continue milieu and group therapy 5. Further investigation including gathering information from patients relatives and review of past case records to inform treatment plan. 6. Safety/Wellness plan and follow-up outpatient appointments to be established prior to discharge. Next steps are for patient to meet with personal care home administrator to plan a safe discharge plan and establish outpatient services for ongoing treatment. 7. Confer with inpatient treatment team regarding treatment plan. 8. Psychosocial stressors addressed through caseworker protective services 9. Legal status: [facility] 10. Consider discharge next week if patient is in stable condition, safe, and has a safe discharge plan. PSYCHOTROPIC MEDICATION TREATMENT INFORMED CONSENT and RECOMMENDATIONS: Review nature of condition, diagnosis, and prognosis. Review nature and purpose of psychotropic medication treatment. Review type of psychotropic medications being ordered. Review risk and benefits of psychotropic medication treatment. Review probable length of time patient will need to take medications. Review risk and benefits of not undergoing psychotropic medication treatment. Review alternative treatments to psychotropic medications. Review psychotropic medications contraindications, drug-drug interactions, side effects, and importance of reporting any side effects to a psychiatric provider or nurse during inpatient hospitalization, and upon discharge to patients psychiatric outpatient provider, primary care provider, or other health geriatric personal care aide. Review importance of asking a nurse, psychiatric provider, or primary care provider any questions or problems concerning the psychotropic medications. Verify patient understands the information that has been provided, and understands, accepts, and agrees to psychotropic medications. Review patients safety plan and importance of patient to report to staff while hospitalized if patient is ever a danger to self/others, or unable to care for self, and upon discharge, the importance for patient to contact [facility] or [facility], or go to the nearest emergency room, if patient is ever a danger to self/others, or unable to care for self. Recommend that upon discharge patient establish medication management treatment with a psychiatric provider, establishes routine therapy appointments, and follow-up with primary care provider. Verify patient understands and agrees to these recommendations. 02/20/19 06:56 Subjective: Following up with patient for evaluation of psychosis and safety. Patient states, "I am really really good. Thank you." Patient reports no side effects from current medications, and agrees to continue current medications. Objective: Vital Signs Temp Pulse Resp BP Pulse Ox 36.8 C 64 14 91/52 L 97 02/20/19 00:30 02/20/19 00:30 02/20/19 00:30 02/20/19 00:30 02/20/19 00:30 NURSING REPORT: Consulted with nursing for update on patients progress in treatment. Nurses report patient is engaged in treatment, is attending some groups; slept 8 hours; expresses the following psychiatric symptoms: paranoid delusions; exhibits the following psychiatric symptoms: anxious, disorganized, paranoid, and delusional, attending to internal stimuli; is agreeable to medications as prescribed with no report of side effects, no s/s of EPS/ akathisia, and denies SI/HI, denies A/V hallucinations, and reports delusions. RN REPORT: Patient continues to be observed by staff walking halls talking to herself and attending to internal stimuli. DISCHARGE PLANNING: Patient is vulnerable due to her underlying illness and discharge to homeless custodial is not a safe plan. Patient requires higher level of support and support needs to be in place prior to patients discharge. MD REPORT FROM WEEKEND: Paranoid and delusional. Will need residential or [place] this time. MSE: The patient is a well-nourished female looking stated chronological age. Attire is appropriate dress is hospital garb. Grooming status is appropriate. Ambulation is independent. Gait is normal and coordinated. Posture is normal. Eye contact is appropriate. Motor activity is appropriate with purposeful, organized, coordinated movements; with no involuntary movements. Attitude is cooperative. Patient appears distracted and does not relate well to this interviewer. Language production is unspontaneous. Rate is hesitant, latency of response is prolonged, with low volume. Articulation is clear. Patient reports mood as okay with constricted, flat and incongruent affect. Patients thought process is non-linear and illogical, with through blocking. Patient does not report suicidal/homicidal thoughts, ideas, or plans. Patient denies auditory, visual hallucinations. Patient reports delusions. Patient does appear to be attending to internal stimuli. Patients attention and concentration are poor. Patient is oriented to person, place, time. Patients insight is poor. Patients judgment is poor. - Time Spent With Patient Time Spent With Patient: 15 minutes, met with patient individually. - Pending Discharge Pending Discharge Within 24 Hours: No Pending Discharge Within 48 Hours: No ICD10 Worksheet Patient Problems: Problems Problem Status Onset Psychosis Acute Schizophrenia Acute
[2019-02-20] MEDS: risperiDONE 2 MG TAB PO SCH ×2 (09:11→20:21)
[2019-02-20] MEDS: ACETAMINOPHEN 325 MG TAB PO PRN (10:26)
--- NOTE | 2019-02-20 11:59 | ASMTCMCOM ---
CM Note CM Note Notes: CC checked in with ct. She presented as more organized today and was able to carry a conversation. She reported that today is her boyfriend's birthday. She said that she called and wrote a birthday card for him. She asked about discharge and reported that she has a court date for her custody case on 03/12/19 in [facility]. She reported that her plan for discharge is to follow up with P and head to [place]. She is planning on taking the bus but was not specific on who will pay for the ticket. She said that she has been in touch with her mother and her dinkey driver Anoop Sparks. CC suggested that ct. let CC speak with MOC or dinkey driver regarding her court appearance. Date Signed: 02/20/2019 11:56 AM Electronically Signed By:Radha Rapp
[2019-02-20] MEDS: IBUPROFEN 800 MG TAB PO PRN (17:24)
[2019-02-21] MEDS: IBUPROFEN 800 MG TAB PO PRN (07:46)
[2019-02-21] MEDS: risperiDONE 2 MG TAB PO SCH ×2 (07:51→21:18)
[2019-02-21] MEDS: LORazepam 0.5 MG TAB PO PRN (10:36)
[2019-02-21] MEDS: AMOXICILLIN/CLAVULANATE POT 875/125 MG TAB PO SCH ×2 (14:01→21:17)
[2019-02-21] MEDS ORDERED: AMOXICILLIN/CLAVULANATE POT 875/125 MG TAB PO ONE (17:45)
--- NOTE | 2019-02-21 21:12 | SOAPPROG ---
SOAP Progress Note Assessment/Plan: Assessment: 23yo CF with Schizoaffective Disorder, Bipolar Type. on STC. Recent increase Risperidone to 2mg BID. monitoring for improvement in mood/psychosis. 02/21/19 11:13 Per staff, slept 8hr. Declined interview. Remained in bed with eyes closed, altho denied any physical complaints or problems with her medications or SI. Appeared resting comfortably. As noted per primary team, pt has been unable to care for self in community due to mental illness, and will need higher level of support in place prior to discharge. Plan: Cont current meds Risperdal 2mg BID. Consider transition to [facility] prior to d/c for improved compliance Cont on STC. Discussed w cc to consider placement on [facility], as medicaid pending. Objective: Vital Signs Temp Pulse Resp BP Pulse Ox 36.6 C 99 17 107/56 L 96 02/21/19 16:00 02/21/19 16:00 02/21/19 16:00 02/21/19 16:00 02/21/19 16:00 - Time Spent With Patient Time Spent With Patient: <10min - Pending Discharge Pending Discharge Within 24 Hours: No Pending Discharge Within 48 Hours: No ICD10 Worksheet Patient Problems: Problems Problem Status Onset Psychosis Acute Schizophrenia Acute
[2019-02-22] MEDS: risperiDONE 2 MG TAB PO SCH ×2 (08:14→20:28)
[2019-02-22] MEDS: AMOXICILLIN/CLAVULANATE POT 875/125 MG TAB PO SCH ×2 (08:15→20:28)
[2019-02-22] MEDS: IBUPROFEN 800 MG TAB PO PRN (20:28)
--- NOTE | 2019-02-22 22:01 | SOAPPROG ---
SOAP Progress Note Assessment/Plan: Assessment: 23yo CF with Schizoaffective Disorder, Bipolar Type. on STC. Recent increase Risperidone to 2mg BID. monitoring for improvement in mood/psychosis. 02/21/19 11:13 Per staff, slept 8hr. Declined interview. Remained in bed with eyes closed, altho denied any physical complaints or problems with her medications or SI. Appeared resting comfortably. As noted per primary team, pt has been unable to care for self in community due to mental illness, and will need higher level of support in place prior to discharge. Plan: Cont current meds Risperdal 2mg BID. Consider transition to [facility] prior to d/c for improved compliance Cont on STC. Discussed w cc to consider placement on [facility], as medicaid pending. 02/22/19 14:07 slept 8hr. per nsg, seems "aimless, dreamy" and seems responding to internal stimuli Met with pt with [employer] kwabena Finnegan also present. Pt in very monotonous tone stated medications were "making me feel better by balancing out my mind" but not able to elaborate further. Denied s/e. MSE: briefly cooperative, good eye contact but appeared to stare suspiciously, + signif decr BUE arm swing, very restricted/blunted affect (?masked facies), denied depr mood or psychotic sxs or SI, but appeared +guarded, suspicious and tolerated only brief interview before glaring at examiners, stating "I think you 're both weird" and abruptly ending eval and walking away. + very mild cogwheeling on LUE at elbow when examined. PLAN: -cont Risp 2mg bid. Prob hold off on any further incr to monitor for EPS given some evidence for this emerging as noted. -Has Cogentin 0.5-1mg bid prn but not used. Will schedule 1mg bid and monitor for improvement -cont Augmentin BID for tooth abscess, seems improving. -cont on STC -given hx, discussing placemt on [facility] list as medicaid pending Objective: Vital Signs Temp Pulse Resp BP Pulse Ox 36.9 C 84 16 106/56 L 96 02/22/19 08:00 02/22/19 08:00 02/22/19 08:00 02/22/19 08:00 02/22/19 08:00 - Time Spent With Patient Time Spent With Patient: 15min - Pending Discharge Pending Discharge Within 24 Hours: No Pending Discharge Within 48 Hours: No ICD10 Worksheet Patient Problems: Problems Problem Status Onset Psychosis Acute Schizophrenia Acute
--- NOTE | 2019-02-23 07:26 | SOAPPROG ---
SOAP Progress Note Assessment/Plan: Assessment: Schizoaffective Disorder, Bipolar Type. No improvement noted (see subjective/ objective note). Patient is not safe to discharge at this time as patient continues to exhibit signs of psychosis, and express psychosis symptoms. Patient requires continued inpatient care because of current psychosis, and requires inpatient level of care to stabilize in order to no longer be gravely disabled due to mental illness. Patient exhibits persistent inability to perform essential function due to psychotic condition. Patient is unable to attend to ADLs appropriately and patient is unable to communicate basic needs. Patients support system has inability to manage functional impairment at lower level of care. Patient is vulnerable due to her underlying illness and discharge to homeless long term is not a safe plan. Patient requires higher level of support and support needs to be in place prior to patients discharge. Patient could benefit from continued inpatient hospitalization for crisis stabilization, safety, and medication evaluation. Plan: 1. Psychotropic medications: After reviewing options, risks, and benefits patient agrees to continue current medications. No medication changes at this time as more time is needed to determine ongoing tolerability and efficacy. Consider increasing Risperidone to 3 mg po BID over the course of this week based on response and tolerability. Plan is to continue to observe patient for response and side effects from medications, and ongoing monitoring and evaluation. 2. Review with patient informed consent and recommendations for psychotropic medication treatment listed below 3. Labs: no additional labs at this time 4. Therapy: continue milieu and group therapy 5. Further investigation including gathering information from patients relatives and review of past case records to inform treatment plan. 6. Safety/Wellness plan and follow-up outpatient appointments to be established prior to discharge. Next steps are for patient to meet with health care law specialist to plan a safe discharge plan and establish outpatient services for ongoing treatment. 7. Confer with inpatient treatment team regarding treatment plan. 8. Psychosocial stressors addressed through caser up 9. Legal status: [facility] 10. Consider discharge next week if patient is in stable condition, safe, and has a safe discharge plan. PSYCHOTROPIC MEDICATION TREATMENT INFORMED CONSENT and RECOMMENDATIONS: Review nature of condition, diagnosis, and prognosis. Review nature and purpose of psychotropic medication treatment. Review type of psychotropic medications being ordered. Review risk and benefits of psychotropic medication treatment. Review probable length of time patient will need to take medications. Review risk and benefits of not undergoing psychotropic medication treatment. Review alternative treatments to psychotropic medications. Review psychotropic medications contraindications, drug-drug interactions, side effects, and importance of reporting any side effects to a psychiatric provider or nurse during inpatient hospitalization, and upon discharge to patients psychiatric outpatient provider, primary care provider, or other health behavioral health care manager. Review importance of asking a nurse, psychiatric provider, or primary care provider any questions or problems concerning the psychotropic medications. Verify patient understands the information that has been provided, and understands, accepts, and agrees to psychotropic medications. Review patients safety plan and importance of patient to report to staff while hospitalized if patient is ever a danger to self/others, or unable to care for self, and upon discharge, the importance for patient to contact [facility] or [facility], or go to the nearest emergency room, if patient is ever a danger to self/others, or unable to care for self. Recommend that upon discharge patient establish medication management treatment with a psychiatric provider, establishes routine therapy appointments, and follow-up with primary care provider. Verify patient understands and agrees to these recommendations. 02/23/19 07:25 Subjective: Following up with patient for evaluation of psychosis and safety. Patient states, "I am good." Patient reports no side effects from current medications, and agrees to continue current medications. Objective: Vital Signs Temp Pulse Resp BP Pulse Ox 36.9 C 84 16 106/56 L 96 02/22/19 08:00 02/22/19 08:00 02/22/19 08:00 02/22/19 08:00 02/22/19 08:00 NURSING REPORT: Consulted with nursing for update on patients progress in treatment. Nurses report patient is engaged in treatment, is attending some groups; slept 8 hours; expresses the following psychiatric symptoms: delusions; exhibits the following psychiatric symptoms: anxious, disorganized, delusional, attending to internal stimuli; is agreeable to medications as prescribed with no report of side effects, no s/s of EPS/akathisia, and denies SI/HI, denies A/ V hallucinations, and reports delusions. RN REPORT: Patient continues to be observed by staff walking halls talking to herself and attending to internal stimuli. Observed in milieu attending to internal stimuli. CARE COORDINATION: Meet with treatment team for update from weekend. DISCHARGE PLANNING: Patient is vulnerable due to her underlying illness and discharge to homeless long term is not a safe plan. Patient requires higher level of support and support needs to be in place prior to patients discharge. MSE: The patient is a well-nourished female looking stated chronological age. Attire is appropriate dress is hospital garb. Grooming status is appropriate. Ambulation is independent. Gait is normal and coordinated. Posture is normal. Eye contact is appropriate. Motor activity is appropriate with purposeful, organized, coordinated movements; with no involuntary movements. Attitude is cooperative. Patient appears distracted and does not relate well to this interviewer. Language production is unspontaneous. Rate is hesitant, latency of response is prolonged, with low volume. Articulation is clear. Patient reports mood as okay with constricted, flat and incongruent affect. Patients thought process is non-linear and illogical, with through blocking. Patient does not report suicidal/homicidal thoughts, ideas, or plans. Patient denies auditory, visual hallucinations. Patient reports delusions. Patient does appear to be attending to internal stimuli. Patients attention and concentration are poor. Patient is oriented to person, place, time. Patients insight is poor. Patients judgment is poor. - Time Spent With Patient Time Spent With Patient: 15 minutes, met with patient individually. - Pending Discharge Pending Discharge Within 24 Hours: No Pending Discharge Within 48 Hours: No ICD10 Worksheet Patient Problems: Problems Problem Status Onset Psychosis Acute Schizophrenia Acute
[2019-02-23] MEDS: risperiDONE 2 MG TAB PO SCH ×3 (09:15→21:13)
[2019-02-23] MEDS: BENZTROPINE MESYLATE 1 MG TAB PO SCH ×2 (09:41→21:06)
[2019-02-23] MEDS: AMOXICILLIN/CLAVULANATE POT 875/125 MG TAB PO SCH ×2 (11:08→21:06)
--- NOTE | 2019-02-23 12:00 | ASMTCMCOM ---
CM Note CM Note Notes: Pt. reports feeling "really good, happy". Pt. stated she "slept really good". Pt. reports getting enough to eat and attending groups. Pt. reports no issues with her medications. Pt. denies having any issues while on the unit. Pt. denied SI, HI, AVH and paranoia. Pt. asked if CC could contact her evaluation assistant. Pt. stated she wants to know the date of court and stated it will be in [place], [place]. Pt. attended treatment team planning this morning. Pt. stated she made an appointment with Dr. Sullivan on Saturday at 8:15am Pt. presents as alert, calm, somewhat passive, good eye contact, polite, and cooperative. Staff report pt. sleeping 8.5 hours and being medication compliant. CC to reach out to P for follow up appointments according to pt's potential length of stay. CC spoke with pt's evaluation assistant, Santos Cabral ([phone]). Pt's evaluation assistant stated pt. has court on 03/12/19 at 1:30pm. Date Signed: 02/23/2019 11:59 AM Electronically Signed By:Danielle Kingsley
[2019-02-23] MEDS: NICOTINE POLACRILEX 2 MG GUM B PRN (18:42)
[2019-02-23] MEDS: LORazepam 0.5 MG TAB PO PRN (22:27)
[2019-02-24] MEDS: risperiDONE 2 MG TAB PO SCH ×2 (08:12→20:10)
[2019-02-24] MEDS: BENZTROPINE MESYLATE 1 MG TAB PO SCH ×2 (08:12→08:24)
[2019-02-24] MEDS: AMOXICILLIN/CLAVULANATE POT 875/125 MG TAB PO SCH ×2 (08:12→20:10)
--- NOTE | 2019-02-24 08:46 | SOAPPROG ---
SOAP Progress Note Assessment/Plan: Assessment: Schizoaffective Disorder, Bipolar Type. No improvement noted (see subjective/ objective note). Patient is not safe to discharge at this time as patient continues to exhibit signs of psychosis, and express psychosis symptoms. Patient requires continued inpatient care because of current psychosis, and requires inpatient level of care to stabilize in order to no longer be gravely disabled due to mental illness. Patient exhibits persistent inability to perform essential function due to psychotic condition. Patient is unable to attend to ADLs appropriately and patient is unable to communicate basic needs. Patients support system has inability to manage functional impairment at lower level of care. Patient is vulnerable due to her underlying illness and discharge to homeless care home is not a safe plan. Patient requires higher level of support and support needs to be in place prior to patients discharge. Patient could benefit from continued inpatient hospitalization for crisis stabilization, safety, and medication evaluation. Plan: 1. Psychotropic medications: After reviewing options, risks, and benefits patient agrees to continue current medications. Patient agrees to increase Risperdal M-tab HS to 3 mg. No other medication changes at this time as more time is needed to determine ongoing tolerability and efficacy. Consider increasing Risperdal M-tab to 3 mg po BID over the course of this week based on response and tolerability. Consider starting Clozaril next week if patient does not respond well to higher dose of Risperdal. Plan is to continue to observe patient for response and side effects from medications, and ongoing monitoring and evaluation. 2. Review with patient informed consent and recommendations for psychotropic medication treatment listed below 3. Labs: no additional labs at this time 4. Therapy: continue milieu and group therapy 5. Further investigation including gathering information from patients relatives and review of past case records to inform treatment plan. 6. Safety/Wellness plan and follow-up outpatient appointments to be established prior to discharge. Next steps are for patient to meet with lawn care specialist to plan a safe discharge plan and establish outpatient services for ongoing treatment. 7. Confer with inpatient treatment team regarding treatment plan. 8. Psychosocial stressors addressed through medical case manager 9. Legal status: [facility] 10. Consider discharge next week if patient is in stable condition, safe, and has a safe discharge plan. PSYCHOTROPIC MEDICATION TREATMENT INFORMED CONSENT and RECOMMENDATIONS: Review nature of condition, diagnosis, and prognosis. Review nature and purpose of psychotropic medication treatment. Review type of psychotropic medications being ordered. Review risk and benefits of psychotropic medication treatment. Review probable length of time patient will need to take medications. Review risk and benefits of not undergoing psychotropic medication treatment. Review alternative treatments to psychotropic medications. Review psychotropic medications contraindications, drug-drug interactions, side effects, and importance of reporting any side effects to a psychiatric provider or nurse during inpatient hospitalization, and upon discharge to patients psychiatric outpatient provider, primary care provider, or other health patient care nursing assistant. Review importance of asking a nurse, psychiatric provider, or primary care provider any questions or problems concerning the psychotropic medications. Verify patient understands the information that has been provided, and understands, accepts, and agrees to psychotropic medications. Review patients safety plan and importance of patient to report to staff while hospitalized if patient is ever a danger to self/others, or unable to care for self, and upon discharge, the importance for patient to contact [facility] or [facility], or go to the nearest emergency room, if patient is ever a danger to self/others, or unable to care for self. Recommend that upon discharge patient establish medication management treatment with a psychiatric provider, establishes routine therapy appointments, and follow-up with primary care provider. Verify patient understands and agrees to these recommendations. 02/24/19 08:44 Subjective: Following up with patient for evaluation of psychosis and safety. Patient states, "I am really good." Patient reports no side effects from current medications, and agrees to continue current medications. Patient agrees to increase Risperdal M-tab HS to 3 mg. Objective: Vital Signs Temp Pulse Resp BP Pulse Ox 36.8 C 75 14 101/58 L 98 02/24/19 06:00 02/24/19 06:00 02/24/19 06:00 02/24/19 06:00 02/24/19 06:00 NURSING REPORT: Consulted with nursing for update on patients progress in treatment. Nurses report patient is engaged in treatment, is attending some groups; slept 8 hours; expresses the following psychiatric symptoms: delusions; exhibits the following psychiatric symptoms: anxious, disorganized, delusional, attending to internal stimuli; is agreeable to medications as prescribed with no report of side effects, no s/s of EPS/akathisia, and denies SI/HI, denies A/ V hallucinations, and reports delusions. MILIEU OBSERVATIONS: Patient continues to be observed by staff walking halls talking to herself and attending to internal stimuli. TREATMENT TEAM: Patient met with treatment team yesterday and requested to be discharged from hospital because she made an appointment with P. No improvement noted during meeting. Patient continues to be psychotic and has poor insight and judgement. DISCHARGE PLANNING: Patient is vulnerable due to her underlying illness and discharge to homeless care home is not a safe plan. Patient requires higher level of support and support needs to be in place prior to patients discharge. MSE: The patient is a well-nourished female looking stated chronological age. Attire is appropriate dress is hospital garb. Grooming status is appropriate. Ambulation is independent. Gait is normal and coordinated. Posture is normal. Eye contact is appropriate. Motor activity is appropriate with purposeful, organized, coordinated movements; with no involuntary movements. Attitude is cooperative. Patient appears distracted and does not relate well to this interviewer. Language production is unspontaneous. Rate is hesitant, latency of response is prolonged, with low volume. Articulation is clear. Patient reports mood as okay with constricted, flat and incongruent affect. Patients thought process is non-linear and illogical, with through blocking. Patient does not report suicidal/homicidal thoughts, ideas, or plans. Patient denies auditory, visual hallucinations. Patient reports delusions. Patient does appear to be attending to internal stimuli. Patients attention and concentration are poor. Patient is oriented to person, place, time. Patients insight is poor. Patients judgment is poor. - Time Spent With Patient Time Spent With Patient: 15 minutes, met with patient individually. - Pending Discharge Pending Discharge Within 24 Hours: No Pending Discharge Within 48 Hours: No ICD10 Worksheet Patient Problems: Problems Problem Status Onset Psychosis Acute Schizophrenia Acute
[2019-02-24] MEDS: NICOTINE POLACRILEX 2 MG GUM B PRN (14:45)
[2019-02-24] MEDS: LORazepam 0.5 MG TAB PO PRN (20:54)
--- NOTE | 2019-02-25 07:23 | SOAPPROG ---
SOAP Progress Note Assessment/Plan: Assessment: Schizoaffective Disorder, Bipolar Type, current psychosis. No improvement noted (see subjective/objective note). Patient is not safe to discharge at this time as patient continues to exhibit signs of psychosis, and express psychosis symptoms. Patient requires continued inpatient care because of current psychosis, and requires inpatient level of care to stabilize in order to no longer be gravely disabled due to mental illness. Patient exhibits persistent inability to perform essential function due to psychotic condition. Patient is unable to attend to ADLs appropriately and patient is unable to communicate basic needs. Patients support system has inability to manage functional impairment at lower level of care. Patient is vulnerable due to her underlying illness and discharge to homeless nursing home is not a safe plan. Patient requires higher level of support and support needs to be in place prior to patients discharge. Patient could benefit from continued inpatient hospitalization for crisis stabilization, safety, and medication evaluation. Plan: 1. Psychotropic medications: After reviewing options, risks, and benefits patient agrees to continue current medications. No other medication changes at this time as more time is needed to determine ongoing tolerability and efficacy. Consider increasing Risperdal M-tab to 3 mg po BID over the course of this week based on response and tolerability. Consider starting Clozaril next week if patient does not respond well to higher dose of Risperdal. Plan is to continue to observe patient for response and side effects from medications , and ongoing monitoring and evaluation. 2. Review with patient informed consent and recommendations for psychotropic medication treatment listed below 3. Labs: no additional labs at this time 4. Therapy: continue milieu and group therapy 5. Further investigation including gathering information from patients relatives and review of past case records to inform treatment plan. 6. Safety/Wellness plan and follow-up outpatient appointments to be established prior to discharge. Next steps are for patient to meet with child care lead teacher to plan a safe discharge plan and establish outpatient services for ongoing treatment. 7. Confer with inpatient treatment team regarding treatment plan. 8. Psychosocial stressors addressed through rn case management 9. Legal status: [facility] 10. Consider discharge next week if patient is in stable condition, safe, and has a safe discharge plan. PSYCHOTROPIC MEDICATION TREATMENT INFORMED CONSENT and RECOMMENDATIONS: Review nature of condition, diagnosis, and prognosis. Review nature and purpose of psychotropic medication treatment. Review type of psychotropic medications being ordered. Review risk and benefits of psychotropic medication treatment. Review probable length of time patient will need to take medications. Review risk and benefits of not undergoing psychotropic medication treatment. Review alternative treatments to psychotropic medications. Review psychotropic medications contraindications, drug-drug interactions, side effects, and importance of reporting any side effects to a psychiatric provider or nurse during inpatient hospitalization, and upon discharge to patients psychiatric outpatient provider, primary care provider, or other health respiratory care faculty. Review importance of asking a nurse, psychiatric provider, or primary care provider any questions or problems concerning the psychotropic medications. Verify patient understands the information that has been provided, and understands, accepts, and agrees to psychotropic medications. Review patients safety plan and importance of patient to report to staff while hospitalized if patient is ever a danger to self/others, or unable to care for self, and upon discharge, the importance for patient to contact [facility] or [facility], or go to the nearest emergency room, if patient is ever a danger to self/others, or unable to care for self. Recommend that upon discharge patient establish medication management treatment with a psychiatric provider, establishes routine therapy appointments, and follow-up with primary care provider. Verify patient understands and agrees to these recommendations. 02/25/19 07:22 Subjective: Following up with patient for evaluation of psychosis and safety. Patient states, "I am really, really good. Just have a little bit of a tooth ache." Patient reports no side effects from current medications, and agrees to continue current medications. Objective: Vital Signs Temp Pulse Resp BP Pulse Ox 36.8 C 75 14 101/58 L 98 02/24/19 06:00 02/24/19 06:00 02/24/19 06:00 02/24/19 06:00 02/24/19 06:00 NURSING REPORT: Consulted with nursing for update on patients progress in treatment. Nurses report patient is engaged in treatment, is attending some groups; slept 8 hours; expresses the following psychiatric symptoms: delusions; exhibits the following psychiatric symptoms: anxious, disorganized, delusional, attending to internal stimuli; is agreeable to medications as prescribed with no report of side effects, no s/s of EPS/akathisia, and denies SI/HI, denies A/ V hallucinations, and reports delusions. MILIEU OBSERVATIONS: Patient continues to be observed by staff walking halls talking to herself and attending to internal stimuli. DISCHARGE PLANNING: Patient is vulnerable due to her underlying illness and discharge to homeless nursing home is not a safe plan. Patient requires higher level of support and support needs to be in place prior to patients discharge. MSE: The patient is a well-nourished female looking stated chronological age. Attire is appropriate dress is hospital garb. Grooming status is appropriate. Ambulation is independent. Gait is normal and coordinated. Posture is normal. Eye contact is appropriate. Motor activity is appropriate with purposeful, organized, coordinated movements; with no involuntary movements. Attitude is cooperative. Patient appears distracted and does not relate well to this interviewer. Language production is unspontaneous. Rate is hesitant, latency of response is prolonged, with low volume. Articulation is clear. Patient reports mood as okay with constricted, flat and incongruent affect. Patients thought process is non-linear and illogical, with through blocking. Patient does not report suicidal/homicidal thoughts, ideas, or plans. Patient denies auditory, visual hallucinations. Patient reports delusions. Patient does appear to be attending to internal stimuli. Patients attention and concentration are poor. Patient is oriented to person, place, time. Patients insight is poor. Patients judgment is poor. - Time Spent With Patient Time Spent With Patient: 15 minutes, met with patient individually. - Pending Discharge Pending Discharge Within 24 Hours: No Pending Discharge Within 48 Hours: No ICD10 Worksheet Patient Problems: Problems Problem Status Onset Psychosis Acute Schizophrenia Acute
[2019-02-25] MEDS: IBUPROFEN 800 MG TAB PO PRN (07:26)
[2019-02-25] MEDS: AMOXICILLIN/CLAVULANATE POT 875/125 MG TAB PO SCH ×2 (08:34→21:20)
[2019-02-25] MEDS: risperiDONE 2 MG TAB PO SCH ×2 (08:35→21:21)
--- NOTE | 2019-02-25 11:15 | ASMTCMCOM ---
CM Note CM Note Notes: Pt. reports feeling "really good". Pt. stated she "slept good, and normal". Pt. reports getting enough to eat and attending groups. Pt. reports no issues with her current medications. Pt. denied having any issues while on the unit. Pt. reports no being sure what her discharge plan is. Pt. reports wanting to go to the homeless skilled nursing. Pt. denied SI, HI, AVH and paranoia. Pt. presents in her bed, semi-alert, calm, eye closed the entire time, somewhat passive with her answers, and cooperative. Staff report pt. sleeping 8 hours last night and being medication compliant today. Pt. signed [facility] for [facility]. [facility] sent pt's clinicals and is awaiting a call back. Date Signed: 02/25/2019 11:14 AM Electronically Signed By:Danielle Kingsley
[2019-02-25] MEDS: NICOTINE POLACRILEX 2 MG GUM B PRN (21:51)
[2019-02-26] MEDS: IBUPROFEN 800 MG TAB PO PRN (06:32)
--- NOTE | 2019-02-26 06:37 | SOAPPROG ---
SOAP Progress Note Assessment/Plan: Assessment: Schizoaffective Disorder, Bipolar Type, current psychosis. Slight improvement noted (see subjective/objective note). Patient is responding to higher dose of Risperidone. Patient is not safe to discharge at this time as patient continues to exhibit signs of psychosis, and express psychosis symptoms. Patient requires continued inpatient care because of current psychosis, and requires inpatient level of care to stabilize in order to no longer be gravely disabled due to mental illness. Patient exhibits persistent inability to perform essential function due to psychotic condition. Patient is unable to attend to ADLs appropriately without prompting from staff, and patient is unable to communicate basic needs. Patients support system has inability to manage functional impairment at lower level of care. Patient is vulnerable due to her underlying illness and discharge to homeless custodial is not a safe plan. Patient requires higher level of support and support needs to be in place prior to patients discharge. Patient could benefit from continued inpatient hospitalization for crisis stabilization, safety, and medication evaluation. Plan: 1. Psychotropic medications: After reviewing options, risks, and benefits patient agrees to continue current medications. No other medication changes at this time as more time is needed to determine ongoing tolerability and efficacy. Consider increasing Risperdal M-tab to 3 mg po BID over the course of this week based on response and tolerability. Consider starting Clozaril next week if patient does not respond well to higher dose of Risperdal. Plan is to continue to observe patient for response and side effects from medications , and ongoing monitoring and evaluation. 2. Review with patient informed consent and recommendations for psychotropic medication treatment listed below 3. Labs: no additional labs at this time 4. Therapy: continue milieu and group therapy 5. Further investigation including gathering information from patients relatives and review of past case records to inform treatment plan. 6. Safety/Wellness plan and follow-up outpatient appointments to be established prior to discharge. Next steps are for patient to meet with childcare aide to plan a safe discharge plan and establish outpatient services for ongoing treatment. 7. Confer with inpatient treatment team regarding treatment plan. 8. Psychosocial stressors addressed through registered nurse hh case manager 9. Legal status: [facility] 10. Consider discharge next week if patient is in stable condition, safe, and has a safe discharge plan. PSYCHOTROPIC MEDICATION TREATMENT INFORMED CONSENT and RECOMMENDATIONS: Review nature of condition, diagnosis, and prognosis. Review nature and purpose of psychotropic medication treatment. Review type of psychotropic medications being ordered. Review risk and benefits of psychotropic medication treatment. Review probable length of time patient will need to take medications. Review risk and benefits of not undergoing psychotropic medication treatment. Review alternative treatments to psychotropic medications. Review psychotropic medications contraindications, drug-drug interactions, side effects, and importance of reporting any side effects to a psychiatric provider or nurse during inpatient hospitalization, and upon discharge to patients psychiatric outpatient provider, primary care provider, or other health post acute care nurse. Review importance of asking a nurse, psychiatric provider, or primary care provider any questions or problems concerning the psychotropic medications. Verify patient understands the information that has been provided, and understands, accepts, and agrees to psychotropic medications. Review patients safety plan and importance of patient to report to staff while hospitalized if patient is ever a danger to self/others, or unable to care for self, and upon discharge, the importance for patient to contact [facility] or [facility], or go to the nearest emergency room, if patient is ever a danger to self/others, or unable to care for self. Recommend that upon discharge patient establish medication management treatment with a psychiatric provider, establishes routine therapy appointments, and follow-up with primary care provider. Verify patient understands and agrees to these recommendations. 02/26/19 06:36 Subjective: Following up with patient for evaluation of psychosis and safety. Patient states, "I am good. I martha like the medications." Patient reports no side effects from current medications, and agrees to continue current medications. Patient reports no sedation from current medications, reports she slept well, and feels rested this AM. Objective: Vital Signs Temp Pulse Resp BP Pulse Ox 36.7 C 95 14 81/44 L 97 02/25/19 09:15 02/25/19 09:15 02/25/19 09:15 02/25/19 09:15 02/25/19 09:15 NURSING REPORT: Consulted with nursing for update on patients progress in treatment. Nurses report patient is engaged in treatment, is attending some groups; slept 8 hours; expresses the following psychiatric symptoms: delusions; exhibits the following psychiatric symptoms: anxious, disorganized, delusional, attending to internal stimuli; is agreeable to medications as prescribed with no report of side effects, no s/s of EPS/akathisia, and denies SI/HI, denies A/ V hallucinations, and reports delusions. DISCHARGE PLANNING: Patient is vulnerable due to her underlying illness and discharge to homeless custodial is not a safe plan. Patient requires higher level of support and support needs to be in place prior to patients discharge. MSE: The patient is a well-nourished female looking stated chronological age. Attire is appropriate dress is hospital garb. Grooming status is appropriate. Ambulation is independent. Gait is normal and coordinated. Posture is normal. Eye contact is appropriate. Motor activity is appropriate with purposeful, organized, coordinated movements; with no involuntary movements. Attitude is cooperative. Patient appears distracted and does not relate well to this interviewer. Language production is unspontaneous. Rate is hesitant, latency of response is prolonged, with low volume. Articulation is clear. Patient reports mood as okay with constricted, flat and incongruent affect. Patients thought process is non-linear and illogical, with through blocking. Patient does not report suicidal/homicidal thoughts, ideas, or plans. Patient denies auditory, visual hallucinations. Patient reports delusions. Patient does appear to be attending to internal stimuli. Patients attention and concentration are poor. Patient is oriented to person, place, time. Patients insight is poor. Patients judgment is poor. - Time Spent With Patient Time Spent With Patient: 15 minutes, met with patient individually. - Pending Discharge Pending Discharge Within 24 Hours: No Pending Discharge Within 48 Hours: No ICD10 Worksheet Patient Problems: Problems Problem Status Onset Psychosis Acute Schizophrenia Acute
[2019-02-26] MEDS: risperiDONE 2 MG TAB PO SCH ×2 (07:36→20:25)
[2019-02-26] MEDS: AMOXICILLIN/CLAVULANATE POT 875/125 MG TAB PO SCH ×2 (07:36→20:23)
[2019-02-26] MEDS: NICOTINE POLACRILEX 2 MG GUM B PRN ×5 (10:13→22:01)
[2019-02-26] MEDS: LORazepam 0.5 MG TAB PO PRN (16:51)
[2019-02-26] MEDS: diphenhydrAMINE 25 MG CAP PO PRN (23:47)
--- NOTE | 2019-02-27 07:27 | SOAPPROG ---
SOAP Progress Note Assessment/Plan: Assessment: Schizoaffective Disorder, Bipolar Type, current psychosis. Slight improvement noted (see subjective/objective note). Patient is responding to higher dose of Risperidone. Patient is not safe to discharge at this time as patient continues to exhibit signs of psychosis, and express psychosis symptoms. Patient requires continued inpatient care because of current psychosis, and requires inpatient level of care to stabilize in order to no longer be gravely disabled due to mental illness. Patient exhibits persistent inability to perform essential function due to psychotic condition. Patient is unable to attend to ADLs appropriately and patient is unable to communicate basic needs. Patients support system has inability to manage functional impairment at lower level of care. Patient is vulnerable due to her underlying illness and discharge to homeless detention is not a safe plan. Patient requires higher level of support and support needs to be in place prior to patients discharge. Patient could benefit from continued inpatient hospitalization for crisis stabilization, safety, and medication evaluation. Plan: 1. Psychotropic medications: After reviewing options, risks, and benefits patient agrees to continue current medications. No other medication changes at this time as more time is needed to determine ongoing tolerability and efficacy. Consider increasing Risperdal M-tab to 3 mg po BID after weekend based on response and tolerability. Consider starting Clozaril next week if patient does not respond well to higher dose of Risperdal. Plan is to continue to observe patient for response and side effects from medications, and ongoing monitoring and evaluation. 2. Review with patient informed consent and recommendations for psychotropic medication treatment listed below 3. Labs: no additional labs at this time 4. Therapy: continue milieu and group therapy 5. Further investigation including gathering information from patients relatives and review of past case records to inform treatment plan. 6. Safety/Wellness plan and follow-up outpatient appointments to be established prior to discharge. Next steps are for patient to meet with primary care coordinator to plan a safe discharge plan and establish outpatient services for ongoing treatment. 7. Confer with inpatient treatment team regarding treatment plan. 8. Psychosocial stressors addressed through case therapist 9. Legal status: [facility] 10. Consider discharge next week if patient is in stable condition, safe, and has a safe discharge plan. PSYCHOTROPIC MEDICATION TREATMENT INFORMED CONSENT and RECOMMENDATIONS: Review nature of condition, diagnosis, and prognosis. Review nature and purpose of psychotropic medication treatment. Review type of psychotropic medications being ordered. Review risk and benefits of psychotropic medication treatment. Review probable length of time patient will need to take medications. Review risk and benefits of not undergoing psychotropic medication treatment. Review alternative treatments to psychotropic medications. Review psychotropic medications contraindications, drug-drug interactions, side effects, and importance of reporting any side effects to a psychiatric provider or nurse during inpatient hospitalization, and upon discharge to patients psychiatric outpatient provider, primary care provider, or other health managed care analyst. Review importance of asking a nurse, psychiatric provider, or primary care provider any questions or problems concerning the psychotropic medications. Verify patient understands the information that has been provided, and understands, accepts, and agrees to psychotropic medications. Review patients safety plan and importance of patient to report to staff while hospitalized if patient is ever a danger to self/others, or unable to care for self, and upon discharge, the importance for patient to contact [facility] or [facility], or go to the nearest emergency room, if patient is ever a danger to self/others, or unable to care for self. Recommend that upon discharge patient establish medication management treatment with a psychiatric provider, establishes routine therapy appointments, and follow-up with primary care provider. Verify patient understands and agrees to these recommendations. 02/27/19 07:28 Subjective: Following up with patient for evaluation of psychosis and safety. Patient states, "I am really good." Patient reports no side effects from current medications, and agrees to continue current medications. Patient reports no sedation from current medications, reports she slept well, and feels rested this AM. Objective: Vital Signs Temp Pulse Resp BP Pulse Ox 36.3 C 96 12 109/67 97 02/27/19 06:00 02/27/19 06:00 02/27/19 06:00 02/27/19 06:00 02/25/19 09:15 NURSING REPORT: Consulted with nursing for update on patients progress in treatment. Nurses report patient is engaged in treatment, is attending some groups; slept 8 hours; expresses the following psychiatric symptoms: delusions; exhibits the following psychiatric symptoms: anxious, disorganized, delusional, attending to internal stimuli; is agreeable to medications as prescribed with no report of side effects, no s/s of EPS/akathisia, and denies SI/HI, denies A/ V hallucinations, and reports delusions. DISCHARGE PLANNING: Patient is vulnerable due to her underlying illness and discharge to homeless detention is not a safe plan. Patient requires higher level of support and support needs to be in place prior to patients discharge. MSE: The patient is a well-nourished female looking stated chronological age. Attire is appropriate dress is hospital garb. Grooming status is appropriate. Ambulation is independent. Gait is normal and coordinated. Posture is normal. Eye contact is appropriate. Motor activity is appropriate with purposeful, organized, coordinated movements; with no involuntary movements. Attitude is cooperative. Patient appears distracted and does not relate well to this interviewer. Language production is spontaneous. Rate is hesitant, latency of response is prolonged, with low volume. Articulation is clear. Patient reports mood as okay with constricted, flat and incongruent affect. Patients thought process is non-linear and illogical, with through blocking. Patient does not report suicidal/homicidal thoughts, ideas, or plans. Patient denies auditory, visual hallucinations. Patient reports delusions. Patient does appear to be attending to internal stimuli. Patients attention and concentration are poor. Patient is oriented to person, place, time. Patients insight is poor. Patients judgment is poor. - Time Spent With Patient Time Spent With Patient: 15 minutes, met with patient individually. - Pending Discharge Pending Discharge Within 24 Hours: No Pending Discharge Within 48 Hours: No ICD10 Worksheet Patient Problems: Problems Problem Status Onset Psychosis Acute Schizophrenia Acute
[2019-02-27] MEDS: risperiDONE 2 MG TAB PO SCH ×2 (08:46→20:49)
[2019-02-27] MEDS: AMOXICILLIN/CLAVULANATE POT 875/125 MG TAB PO SCH ×2 (08:47→20:48)
[2019-02-27] MEDS: NICOTINE POLACRILEX 2 MG GUM B PRN ×2 (09:38→19:08)
[2019-02-27] MEDS: LORazepam 0.5 MG TAB PO PRN (10:44)
[2019-02-27] MEDS: diphenhydrAMINE 25 MG CAP PO PRN (20:51)
[2019-02-28] MEDS: risperiDONE 2 MG TAB PO SCH ×2 (08:47→21:19)
--- NOTE | 2019-02-28 10:42 | ASMTCMCOM ---
CM Note CM Note Notes: Pt. reports feeling "really good". Pt. stated she slept "good". Pt. reports getting enough to eat and attending groups. Pt. reports no issues with her current medication. Pt. reports having no issues while on the unit. Pt. denied SI, HI, AVH and paranoia. Pt. presents as alert, calm, somewhat passive, fair eye contact, in different clothing, and mostly cooperative. Staff report pt. sleeping 9 hours and being medication compliant. CC to reach out to Kain Mao at [facility] about possible residential placement for pt. Date Signed: 02/28/2019 10:42 AM Electronically Signed By:Danielle Kingsley
[2019-02-28] MEDS: NICOTINE POLACRILEX 2 MG GUM B PRN ×2 (10:57→14:27)
--- NOTE | 2019-02-28 16:56 | SOAPPROG ---
SOAP Progress Note Assessment/Plan: Assessment: 20-year-old female presents to the emergency department by ambulance with [facility] with altered mental status. The patient was found limping along the bike path looking very disheveled and having no pants on. It is unclear if there was any associated trauma. Patient was recently discharged from [facility] on 02/09/19. WEEKEND PLAN: 02/28/19 16:54 1. Patient sedated, slept in her room all morning. 2. Patient did attend one art therapy group. 3. Compliant with medications. 4. STC Subjective: Patient sedated from medications, slept in her room most of the AM. She did attend an art therapy group, but does not interact with peers or staff very much. Objective: Vital Signs Temp Pulse Resp BP Pulse Ox 36.3 C 96 12 109/67 97 02/27/19 06:00 02/27/19 06:00 02/27/19 06:00 02/27/19 06:00 02/25/19 09:15 MSE: Affect: Smiling Mood: "OK" TP: Loose, tangential TC: Denies any SI/HI Insight/Judgment: Poor - Time Spent With Patient Time Spent With Patient: 15" - Pending Discharge Pending Discharge Within 24 Hours: No Pending Discharge Within 48 Hours: No ICD10 Worksheet Patient Problems: Problems Problem Status Onset Psychosis Acute Schizophrenia Acute
[2019-03-01] MEDS: risperiDONE 2 MG TAB PO SCH ×2 (08:19→20:59)
[2019-03-01] MEDS: NICOTINE POLACRILEX 2 MG GUM B PRN ×2 (11:35→16:48)
--- NOTE | 2019-03-01 16:04 | ASMTBHDC ---
Notes Note: Notes: According to [facility] staff, the patient was observed "giggling to herself in the hallway;" suspected response to internal stimuli. The patient reported that she was doing "well." The patient discussed her discharge plan with this typewriter tester. She reported that she wished she could return to the street because she believes she was more successful when she was homeless. Date Signed: 03/01/2019 04:04 PM Electronically Signed By:Kalani Cedeno
--- NOTE | 2019-03-01 16:43 | SOAPPROG ---
SOAP Progress Note Assessment/Plan: Assessment: 20-year-old female presents to the emergency department by ambulance with [facility] with altered mental status. The patient was found limping along the bike path looking very disheveled and having no pants on. It is unclear if there was any associated trauma. Patient was recently discharged from [facility] on 02/09/19. WEEKEND PLAN: 02/28/19 16:54 1. Patient sedated, slept in her room all morning. 2. Patient did attend one art therapy group. 3. Compliant with medications. 4. STC 03/01/19 16:39 1. Patient observed mumbling and giggling to herself. 2. Compliant with medications. 3. STC Subjective: Patient present in milieu, but keeps to herself and does not interact with peers. MD observed patient going to/from her room mumbling to herself and smiling. Staff also noticed patient giggling to herself at inappropriate times. She denies SI/HI and denies AH/VH, though she remains clearly internally preoccupied and responding to IS. Objective: Vital Signs Temp Pulse Resp BP Pulse Ox 36.7 C 68 14 92/55 L 97 03/01/19 06:00 03/01/19 06:00 03/01/19 06:00 03/01/19 06:00 03/01/19 06:00 MSE: Affect: Odd Mood: "OK" TP: Disorganized, illogical at times, briefly goal -directed TC: Denies any SI/HI Perception: Denies any AH/VH, but observed mumbling/giggling to herself at unusual times Insight/Judgment: Poor - Time Spent With Patient Time Spent With Patient: 15" - Pending Discharge Pending Discharge Within 24 Hours: No Pending Discharge Within 48 Hours: No ICD10 Worksheet Patient Problems: Problems Problem Status Onset Psychosis Acute Schizophrenia Acute
[2019-03-01] MEDS: diphenhydrAMINE 25 MG CAP PO PRN (23:39)
[2019-03-02 04:55] VITALS: BP 97/59
--- NOTE | 2019-03-02 07:40 | SOAPPROG ---
SOAP Progress Note Assessment/Plan: Assessment: Schizoaffective Disorder, Bipolar Type, current psychosis. No improvement noted (see subjective/objective note). Patient is responding to higher dose of Risperidone, increase dose today. Patient is not safe to discharge at this time as patient continues to exhibit signs of psychosis, and express psychosis symptoms. Patient requires continued inpatient care because of current psychosis, and requires inpatient level of care to stabilize in order to no longer be gravely disabled due to mental illness. Patient exhibits persistent inability to perform essential function due to psychotic condition. Patient is unable to attend to ADLs appropriately and patient is unable to communicate basic needs. Patients support system has inability to manage functional impairment at lower level of care. Patient is vulnerable due to her underlying illness and discharge to homeless long-term is not a safe plan at this time. Patient requires higher level of support and support needs to be in place prior to patients discharge. Patient could benefit from continued inpatient hospitalization for crisis stabilization, safety, and medication evaluation. Plan: 1. Psychotropic medications: After reviewing options, risks, and benefits patient agrees to continue current medications, and agrees to increase Risperdal M-tab QD to 3 mg. No other medication changes at this time as more time is needed to determine ongoing tolerability and efficacy. MD reports no change in patient's mentation over weekend. Continue at 3 mg po BID this week. Consider starting Clozaril next week if patient does not respond well to higher dose of Risperdal. Plan is to continue to observe patient for response and side effects from medications, and ongoing monitoring and evaluation. 2. Review with patient informed consent and recommendations for psychotropic medication treatment listed below 3. Labs: no additional labs at this time 4. Therapy: continue milieu and group therapy 5. Further investigation including gathering information from patients relatives and review of past case records to inform treatment plan. 6. Safety/Wellness plan and follow-up outpatient appointments to be established prior to discharge. Next steps are for patient to meet with career placement specialist to plan a safe discharge plan and establish outpatient services for ongoing treatment. 7. Confer with inpatient treatment team regarding treatment plan. 8. Psychosocial stressors addressed through case operator 9. Legal status: [facility] 10. Consider discharge next week if patient is in stable condition, safe, and has a safe discharge plan. PSYCHOTROPIC MEDICATION TREATMENT INFORMED CONSENT and RECOMMENDATIONS: Review nature of condition, diagnosis, and prognosis. Review nature and purpose of psychotropic medication treatment. Review type of psychotropic medications being ordered. Review risk and benefits of psychotropic medication treatment. Review probable length of time patient will need to take medications. Review risk and benefits of not undergoing psychotropic medication treatment. Review alternative treatments to psychotropic medications. Review psychotropic medications contraindications, drug-drug interactions, side effects, and importance of reporting any side effects to a psychiatric provider or nurse during inpatient hospitalization, and upon discharge to patients psychiatric outpatient provider, primary care provider, or other health customer care coordinator. Review importance of asking a nurse, psychiatric provider, or primary care provider any questions or problems concerning the psychotropic medications. Verify patient understands the information that has been provided, and understands, accepts, and agrees to psychotropic medications. Review patients safety plan and importance of patient to report to staff while hospitalized if patient is ever a danger to self/others, or unable to care for self, and upon discharge, the importance for patient to contact [facility] or [facility], or go to the nearest emergency room, if patient is ever a danger to self/others, or unable to care for self. Recommend that upon discharge patient establish medication management treatment with a psychiatric provider, establishes routine therapy appointments, and follow-up with primary care provider. Verify patient understands and agrees to these recommendations. 03/02/19 07:40 Subjective: Following up with patient for evaluation of psychosis and safety. Patient states, "I am good." Patient reports no side effects from current medications, and agrees to continue current medications. Patient reports no sedation from current medications, reports she slept well, and feels rested this AM. Patient agrees to increase Risperdal M-tab QD to 3 mg. Objective: Vital Signs Temp Pulse Resp BP Pulse Ox 36.4 C 80 16 97/59 L 98 03/02/19 04:54 03/02/19 04:54 03/02/19 04:54 03/02/19 04:54 03/02/19 04:54 NURSING REPORT: Consulted with nursing for update on patients progress in treatment. Nurses report patient is engaged in treatment, is attending some groups; slept 8 hours; expresses the following psychiatric symptoms: delusions; exhibits the following psychiatric symptoms: anxious, disorganized, delusional, attending to internal stimuli; is agreeable to medications as prescribed with no report of side effects, no s/s of EPS/akathisia, and denies SI/HI, denies A/ V hallucinations, and reports delusions. DISCHARGE PLANNING: Patient is vulnerable due to her underlying illness and discharge to homeless long-term is not a safe plan. Patient requires higher level of support and support needs to be in place prior to patients discharge. MD REPORT FROM WEEKEND: Seems about the same. CC mentioned possible program, PREP, at [facility] that might be an option. MSE: The patient is a well-nourished female looking stated chronological age. Attire is appropriate dress is hospital garb. Grooming status is appropriate. Ambulation is independent. Gait is normal and coordinated. Posture is normal. Eye contact is appropriate. Motor activity is appropriate with purposeful, organized, coordinated movements; with no involuntary movements. Attitude is cooperative. Patient appears distracted and does not relate well to this interviewer. Language production is unspontaneous. Rate is hesitant, latency of response is prolonged, with low volume. Articulation is clear. Patient reports mood as okay with constricted, flat and incongruent affect. Patients thought process is non-linear and illogical, with through blocking. Patient does not report suicidal/homicidal thoughts, ideas, or plans. Patient denies auditory, visual hallucinations. Patient reports delusions. Patient does appear to be attending to internal stimuli. Patients attention and concentration are poor. Patient is oriented to person, place, time. Patients insight is poor. Patients judgment is poor. - Time Spent With Patient Time Spent With Patient: 15 minutes, met with patient individually. - Pending Discharge Pending Discharge Within 24 Hours: No Pending Discharge Within 48 Hours: No ICD10 Worksheet Patient Problems: Problems Problem Status Onset Psychosis Acute Schizophrenia Acute
[2019-03-02] MEDS: risperiDONE 2 MG TAB PO SCH ×3 (08:56→20:51)
[2019-03-02] MEDS: NICOTINE POLACRILEX 2 MG GUM B PRN (10:53)
--- NOTE | 2019-03-02 11:20 | ASMTCMCOM ---
CM Note CM Note Notes: CC out-reached Kain Mao with [facility] at ; no answer left detailed VM with all necessary return contact information including personal phone due to the urgency of this situation. Date Signed: 03/02/2019 11:16 AM Electronically Signed By:Alex Beltran
--- NOTE | 2019-03-02 12:04 | ASMTCMCOM ---
CM Note CM Note Notes: The patient participated in clinical treatment team rounds. She was calm, engaged, and appropriate. She reported feeling "better" AEB being "less depressed than ever," having "progressive plans and goals for the future," and being "in good health." The patient requested to return to [facility]; she stated "It was a supportive environment." Date Signed: 03/02/2019 12:03 PM Electronically Signed By:Kalani Cedeno
[2019-03-02] MEDS: LORazepam 0.5 MG TAB PO PRN (20:49)
--- NOTE | 2019-03-03 08:04 | SOAPPROG ---
SOAP Progress Note Assessment/Plan: Assessment: Schizoaffective Disorder, Bipolar Type, current psychosis. Slight improvement noted (see subjective/objective note). Patient is responding to higher dose of Risperidone. Patient is not safe to discharge at this time as patient continues to exhibit signs of psychosis, and express psychosis symptoms. Patient requires continued inpatient care because of current psychosis, and requires inpatient level of care to stabilize in order to no longer be gravely disabled due to mental illness. Patient exhibits persistent inability to perform essential function due to psychotic condition. Patient is unable to attend to ADLs appropriately and patient is unable to communicate basic needs. Patients support system has inability to manage functional impairment at lower level of care. Patient is vulnerable due to her underlying illness and discharge to homeless longterm is not a safe plan at this time. Patient requires higher level of support and support needs to be in place prior to patients discharge. Patient could benefit from continued inpatient hospitalization for crisis stabilization, safety, and medication evaluation. Plan: 1. Psychotropic medications: After reviewing options, risks, and benefits patient agrees to continue current medications. No other medication changes at this time as more time is needed to determine ongoing tolerability and efficacy. Consider starting Clozaril next week if patient does not respond well to higher dose of Risperdal. Plan is to continue to observe patient for response and side effects from medications, and ongoing monitoring and evaluation. 2. Review with patient informed consent and recommendations for psychotropic medication treatment listed below 3. Labs: no additional labs at this time 4. Therapy: continue milieu and group therapy 5. Further investigation including gathering information from patients relatives and review of past case records to inform treatment plan. 6. Safety/Wellness plan and follow-up outpatient appointments to be established prior to discharge. Next steps are for patient to meet with district manager primary care sales to plan a safe discharge plan and establish outpatient services for ongoing treatment. 7. Confer with inpatient treatment team regarding treatment plan. 8. Psychosocial stressors addressed through pillowcase cutter 9. Legal status: [facility] 10. Consider discharge next week if patient is in stable condition, safe, and has a safe discharge plan. PSYCHOTROPIC MEDICATION TREATMENT INFORMED CONSENT and RECOMMENDATIONS: Review nature of condition, diagnosis, and prognosis. Review nature and purpose of psychotropic medication treatment. Review type of psychotropic medications being ordered. Review risk and benefits of psychotropic medication treatment. Review probable length of time patient will need to take medications. Review risk and benefits of not undergoing psychotropic medication treatment. Review alternative treatments to psychotropic medications. Review psychotropic medications contraindications, drug-drug interactions, side effects, and importance of reporting any side effects to a psychiatric provider or nurse during inpatient hospitalization, and upon discharge to patients psychiatric outpatient provider, primary care provider, or other health vp care management. Review importance of asking a nurse, psychiatric provider, or primary care provider any questions or problems concerning the psychotropic medications. Verify patient understands the information that has been provided, and understands, accepts, and agrees to psychotropic medications. Review patients safety plan and importance of patient to report to staff while hospitalized if patient is ever a danger to self/others, or unable to care for self, and upon discharge, the importance for patient to contact [facility] or [facility], or go to the nearest emergency room, if patient is ever a danger to self/others, or unable to care for self. Recommend that upon discharge patient establish medication management treatment with a psychiatric provider, establishes routine therapy appointments, and follow-up with primary care provider. Verify patient understands and agrees to these recommendations. 03/03/19 08:03 Subjective: Following up with patient for evaluation of psychosis and safety. Patient states, "I am really good." Patient reports no side effects from current medications, and agrees to continue current medications. Objective: Vital Signs Temp Pulse Resp BP Pulse Ox 36.4 C 80 16 97/59 L 98 03/02/19 04:54 03/02/19 04:54 03/02/19 04:54 03/02/19 04:54 03/02/19 04:54 NURSING REPORT: Consulted with nursing for update on patients progress in treatment. Nurses report patient is engaged in treatment, is attending some groups; slept 8 hours; expresses the following psychiatric symptoms: delusions; exhibits the following psychiatric symptoms: anxious, disorganized, delusional; is agreeable to medications as prescribed with no report of side effects, no s/ s of EPS/akathisia, and denies SI/HI, denies A/V hallucinations, and reports delusions. MSE: The patient is a well-nourished female looking stated chronological age. Attire is appropriate dress is hospital garb. Grooming status is appropriate. Ambulation is independent. Gait is normal and coordinated. Posture is normal. Eye contact is appropriate. Motor activity is appropriate with purposeful, organized, coordinated movements; with no involuntary movements. Attitude is cooperative. Patient appears distracted and does not relate well to this interviewer. Language production is unspontaneous. Rate is hesitant, latency of response is prolonged, with low volume. Articulation is clear. Patient reports mood as okay with constricted, flat and incongruent affect. Patients thought process is non-linear and illogical, with through blocking. Patient does not report suicidal/homicidal thoughts, ideas, or plans. Patient denies auditory, visual hallucinations. Patient reports delusions. Patient does appear to be attending to internal stimuli. Patients attention and concentration are poor. Patient is oriented to person, place, time. Patients insight is poor. Patients judgment is poor. - Time Spent With Patient Time Spent With Patient: 15 minutes, met with patient individually. - Pending Discharge Pending Discharge Within 24 Hours: No Pending Discharge Within 48 Hours: No ICD10 Worksheet Patient Problems: Problems Problem Status Onset Psychosis Acute Schizophrenia Acute
[2019-03-03] MEDS: risperiDONE 2 MG TAB PO SCH ×3 (08:31→21:49)
--- NOTE | 2019-03-03 11:52 | ASMTCMCOM ---
CM Note CM Note Notes: CC received a return call from Nan (from [facility]) at [phone]; spoke about possibility of client participating in there "[facility] progrram." CC was able to provide all necessary documentation to Nan to look over as well as schedule a live phone interview at 11am set for tomorrow 03/04 (Sat) with client and CC to complete screening interview regarding questions surrounding clients' medical and clinical history as well as any current issues., etc. Date Signed: 03/03/2019 11:51 AM Electronically Signed By:Alex Beltran
--- NOTE | 2019-03-03 13:01 | ASMTCMCOM ---
CM Note CM Note Notes: Pt. reports feeling "wonderful". Pt. stated she slept "really good". Pt. reports she was "hoping for more" breakfast. Pt. stated she has stopped taking risperidone due to "mind hasn't been functioning". Pt. reports attending groups. Pt. reports no issues while on the unit. Pt. denied SI, HI, AVH and paranoia. Pt. stated her provider spoke to her about discharge, but pt. is unclear on when she will discharge. Pt. presents alert, calm, slightly disorganized, good eye contact, and cooperative. Staff report pt. sleeping 9.5 hours and refusing her medications. CC reached out to Kain at [facility]. They cannot offer pt. a residential program, but did suggest a step down housing called, [facility]. CC faxed pt. clinicals to [facility] about their [facility] program. Pre provider's note, pt is not able to be discharged to the homeless correction. Date Signed: 03/03/2019 12:58 PM Electronically Signed By:Danielle Kingsley
--- NOTE | 2019-03-03 13:06 | ASMTCMCOM ---
CM Note CM Note Notes: CC spoke with MOC about pt. moving to new building on 03/10/19. Date Signed: 03/03/2019 01:01 PM Electronically Signed By:Danielle Kingsley
--- NOTE | 2019-03-03 14:23 | ASMTBHDC ---
Notes Note: Notes: CC spoke with MOC. MOC stated pt's [employer] insurance will stop on 03/08/19. Date Signed: 03/03/2019 02:23 PM Electronically Signed By:Danielle Kingsley
--- NOTE | 2019-03-03 14:37 | ASMTBHDC ---
Notes Note: Notes: CC reached out to [facility]'s program [facility] Silvia Garcia ([phone] or main # [phone]) CC spoke with P liaison who stated [facility], who stated currently there are no beds until next week. Date Signed: 03/03/2019 02:35 PM Electronically Signed By:Danielle Kingsley
--- NOTE | 2019-03-03 14:51 | ASMTBHDC ---
Notes Note: Notes: spoke with Silvia, head of [facility] program at [facility] ([phone]). Silvia stated [facility] cannot take private pay insurance, but they do accept Medicaid. Silvia stated [facility] should wait until pt. has active medicaid and to then send over pt. current clinicals. Silvia stated they work with clients on an individual basis, but the average stay in 2-3 weeks. Kain Mayco with the [facility] program at [facility], stated once pt. completes [facility], she can transition to outpatient services with [facility]. Date Signed: 03/03/2019 02:50 PM Electronically Signed By:Danielle Kingsley
[2019-03-03] MEDS: NICOTINE POLACRILEX 2 MG GUM B PRN (20:02)
--- NOTE | 2019-03-04 06:50 | SOAPPROG ---
SOAP Progress Note Assessment/Plan: Assessment: Schizoaffective Disorder, Bipolar Type, current psychosis. Slight improvement noted (see subjective/objective note). Patient is not safe to discharge at this time as patient continues to exhibit signs of psychosis, and express psychosis symptoms. Patient requires continued inpatient care because of current psychosis, and requires inpatient level of care to stabilize in order to no longer be gravely disabled due to mental illness. Patient exhibits persistent inability to perform essential function due to psychotic condition. Patient is unable to attend to ADLs appropriately and patient is unable to communicate basic needs. Patients support system has inability to manage functional impairment at lower level of care. Treatment team consensus is patient vulnerable due to her underlying illness and discharge to homeless fdc is not a safe plan at this time. Patient requires higher level of support and support needs to be in place prior to patients discharge. Patient could benefit from continued inpatient hospitalization for crisis stabilization , safety, and medication evaluation. Plan: 1. Psychotropic medications: After reviewing options, risks, and benefits patient agrees to continue current medications. No other medication changes at this time as more time is needed to determine ongoing tolerability and efficacy. Plan is to continue to observe patient for response and side effects from medications, and ongoing monitoring and evaluation. 2. Review with patient informed consent and recommendations for psychotropic medication treatment listed below 3. Labs: no additional labs at this time 4. Therapy: continue milieu and group therapy 5. Further investigation including gathering information from patients relatives and review of past case records to inform treatment plan. 6. Safety/Wellness plan and follow-up outpatient appointments to be established prior to discharge. Next steps are for patient to meet with primary care nurse practitioner to plan a safe discharge plan and establish outpatient services for ongoing treatment. 7. Confer with inpatient treatment team regarding treatment plan. 8. Psychosocial stressors addressed through watch case polisher 9. Legal status: [facility] 10. Consider discharge next week if patient is in stable condition, safe, and has a safe discharge plan. PSYCHOTROPIC MEDICATION TREATMENT INFORMED CONSENT and RECOMMENDATIONS: Review nature of condition, diagnosis, and prognosis. Review nature and purpose of psychotropic medication treatment. Review type of psychotropic medications being ordered. Review risk and benefits of psychotropic medication treatment. Review probable length of time patient will need to take medications. Review risk and benefits of not undergoing psychotropic medication treatment. Review alternative treatments to psychotropic medications. Review psychotropic medications contraindications, drug-drug interactions, side effects, and importance of reporting any side effects to a psychiatric provider or nurse during inpatient hospitalization, and upon discharge to patients psychiatric outpatient provider, primary care provider, or other health nursing care partner. Review importance of asking a nurse, psychiatric provider, or primary care provider any questions or problems concerning the psychotropic medications. Verify patient understands the information that has been provided, and understands, accepts, and agrees to psychotropic medications. Review patients safety plan and importance of patient to report to staff while hospitalized if patient is ever a danger to self/others, or unable to care for self, and upon discharge, the importance for patient to contact [facility] or [facility], or go to the nearest emergency room, if patient is ever a danger to self/others, or unable to care for self. Recommend that upon discharge patient establish medication management treatment with a psychiatric provider, establishes routine therapy appointments, and follow-up with primary care provider. Verify patient understands and agrees to these recommendations. 03/04/19 06:49 Subjective: Following up with patient for evaluation of psychosis and safety. Patient states, "I am really good. I am ready to discharge. I can just go to [facility] at the homeless fdc in [place]." Patient reports no side effects from current medications, and agrees to continue current medications. Objective: Vital Signs Temp Pulse Resp BP Pulse Ox 36.4 C 80 16 97/59 L 98 03/02/19 04:54 03/02/19 04:54 03/02/19 04:54 03/02/19 04:54 03/02/19 04:54 NURSING REPORT: Consulted with nursing for update on patients progress in treatment. Nurses report patient is engaged in treatment, is attending some groups; slept 8 hours; expresses the following psychiatric symptoms: delusions; exhibits the following psychiatric symptoms: anxious, disorganized, delusional; is agreeable to medications as prescribed with no report of side effects, no s/ s of EPS/akathisia, and denies SI/HI, denies A/V hallucinations, and reports delusions. Patient refused Risperdal HS on Saturday. MSE: The patient is a well-nourished female looking stated chronological age. Attire is appropriate dress is hospital garb. Grooming status is appropriate. Ambulation is independent. Gait is normal and coordinated. Posture is normal. Eye contact is appropriate. Motor activity is appropriate with purposeful, organized, coordinated movements; with no involuntary movements. Attitude is cooperative. Patient appears distracted and does not relate well to this interviewer. Language production is unspontaneous. Rate is hesitant, latency of response is prolonged, with low volume. Articulation is clear. Patient reports mood as okay with constricted, flat and incongruent affect. Patients thought process is non-linear and illogical, with through blocking. Patient does not report suicidal/homicidal thoughts, ideas, or plans. Patient denies auditory, visual hallucinations. Patient reports delusions. Patient does appear to be attending to internal stimuli. Patients attention and concentration are poor. Patient is oriented to person, place, time. Patients insight is poor. Patients judgment is poor. - Time Spent With Patient Time Spent With Patient: 15 minutes, met with patient individually. - Pending Discharge Pending Discharge Within 24 Hours: No Pending Discharge Within 48 Hours: No ICD10 Worksheet Patient Problems: Problems Problem Status Onset Psychosis Acute Schizophrenia Acute
[2019-03-04] MEDS: risperiDONE 2 MG TAB PO SCH ×2 (08:23→20:39)
[2019-03-04] MEDS: NICOTINE POLACRILEX 2 MG GUM B PRN (11:31)
--- NOTE | 2019-03-04 11:52 | ASMTCMCOM ---
CM Note CM Note Notes: CC and client spoke to Yolande (from the [facility]) program. Client was mostly on the phone with the medical and mental health screens at [facility]. [facility]staff noted, that client could be accepted into their program. However, [they] have to speak to [facility] first in-order for an agreement to be made, etc. CC asked Yolande when he should reach out again, she noted, "this process takes a couple of days to no later than a week." Date Signed: 03/04/2019 11:51 AM Electronically Signed By:Alex Beltran
--- NOTE | 2019-03-05 06:47 | SOAPPROG ---
SOAP Progress Note Assessment/Plan: Assessment: Schizoaffective Disorder, Bipolar Type, current psychosis. Slight improvement noted (see subjective/objective note). Patient is not safe to discharge at this time as patient continues to exhibit signs of psychosis, and express psychosis symptoms. Patient requires continued inpatient care because of current psychosis, and requires inpatient level of care to stabilize in order to no longer be gravely disabled due to mental illness. Patient exhibits persistent inability to perform essential function due to psychotic condition. Patient is unable to attend to ADLs appropriately and patient is unable to communicate basic needs. Patients support system has inability to manage functional impairment at lower level of care. Treatment team consensus is patient vulnerable due to her underlying illness and discharge to homeless prison is not a safe plan at this time. Patient requires higher level of support and support needs to be in place prior to patients discharge. Patient could benefit from continued inpatient hospitalization for crisis stabilization , safety, and medication evaluation. Plan: 1. Psychotropic medications: After reviewing options, risks, and benefits patient agrees to continue current medications. No other medication changes at this time as more time is needed to determine ongoing tolerability and efficacy. Plan is to continue to observe patient for response and side effects from medications, and ongoing monitoring and evaluation. 2. Review with patient informed consent and recommendations for psychotropic medication treatment listed below 3. Labs: no additional labs at this time 4. Therapy: continue milieu and group therapy 5. Further investigation including gathering information from patients relatives and review of past case records to inform treatment plan. 6. Safety/Wellness plan and follow-up outpatient appointments to be established prior to discharge. Next steps are for patient to meet with child care giver to plan a safe discharge plan and establish outpatient services for ongoing treatment. 7. Confer with inpatient treatment team regarding treatment plan. 8. Psychosocial stressors addressed through child support case officer 9. Legal status: [facility] 10. Consider discharge next week if patient is in stable condition, safe, and has a safe discharge plan. PSYCHOTROPIC MEDICATION TREATMENT INFORMED CONSENT and RECOMMENDATIONS: Review nature of condition, diagnosis, and prognosis. Review nature and purpose of psychotropic medication treatment. Review type of psychotropic medications being ordered. Review risk and benefits of psychotropic medication treatment. Review probable length of time patient will need to take medications. Review risk and benefits of not undergoing psychotropic medication treatment. Review alternative treatments to psychotropic medications. Review psychotropic medications contraindications, drug-drug interactions, side effects, and importance of reporting any side effects to a psychiatric provider or nurse during inpatient hospitalization, and upon discharge to patients psychiatric outpatient provider, primary care provider, or other health healthcare or medical. Review importance of asking a nurse, psychiatric provider, or primary care provider any questions or problems concerning the psychotropic medications. Verify patient understands the information that has been provided, and understands, accepts, and agrees to psychotropic medications. Review patients safety plan and importance of patient to report to staff while hospitalized if patient is ever a danger to self/others, or unable to care for self, and upon discharge, the importance for patient to contact [facility] or [facility], or go to the nearest emergency room, if patient is ever a danger to self/others, or unable to care for self. Recommend that upon discharge patient establish medication management treatment with a psychiatric provider, establishes routine therapy appointments, and follow-up with primary care provider. Verify patient understands and agrees to these recommendations. 03/05/19 06:46 Subjective: Following up with patient for evaluation of psychosis and safety. Patient states, "I am really good. Excited I may be leaving soon." Patient reports no side effects from current medications, and agrees to continue current medications. Objective: Vital Signs Temp Pulse Resp BP Pulse Ox 36.4 C 80 16 97/59 L 98 03/02/19 04:54 03/02/19 04:54 03/02/19 04:54 03/02/19 04:54 03/02/19 04:54 NURSING REPORT: Consulted with nursing for update on patients progress in treatment. Nurses report patient is engaged in treatment, is attending some groups; slept 8 hours; expresses the following psychiatric symptoms: delusions; exhibits the following psychiatric symptoms: anxious, disorganized, delusional; is agreeable to medications as prescribed with no report of side effects, no s/ s of EPS/akathisia, and denies SI/HI, denies A/V hallucinations, and reports delusions. MSE: The patient is a well-nourished female looking stated chronological age. Attire is appropriate dress is hospital garb. Grooming status is appropriate. Ambulation is independent. Gait is normal and coordinated. Posture is normal. Eye contact is appropriate. Motor activity is appropriate with purposeful, organized, coordinated movements; with no involuntary movements. Attitude is cooperative. Patient appears distracted and does not relate well to this interviewer. Language production is unspontaneous. Rate is hesitant, latency of response is prolonged, with low volume. Articulation is clear. Patient reports mood as okay with constricted, flat and incongruent affect. Patients thought process is non-linear and illogical, with through blocking. Patient does not report suicidal/homicidal thoughts, ideas, or plans. Patient denies auditory, visual hallucinations. Patient reports delusions. Patient does appear to be attending to internal stimuli. Patients attention and concentration are poor. Patient is oriented to person, place, time. Patients insight is poor. Patients judgment is poor. - Time Spent With Patient Time Spent With Patient: 15 minutes, met with patient individually. - Pending Discharge Pending Discharge Within 24 Hours: No Pending Discharge Within 48 Hours: No ICD10 Worksheet Patient Problems: Problems Problem Status Onset Psychosis Acute Schizophrenia Acute
[2019-03-05] MEDS: risperiDONE 2 MG TAB PO SCH ×2 (08:37→20:32)
--- NOTE | 2019-03-05 14:29 | ASMTCMCOM ---
CM Note CM Note Notes: Pt. reports feeling "ok". Pt. stated she slept "enough," the previous night. Client reports attending groups most of the groups . Client denies any feelings of S/I-H/I, AVH anxiety or depression. . Pt. stated her provider spoke to her about discharge, but pt. is unclear on when she will discharge. Client's presents alert, disorganized at times, good eye contact, calm and cooperative, affect is appropriate towards situation.. Client interacted with peers and staff throughout the unit. CC reached out to Stay R. client;'s CW through P to help provide an update, no answer left detailed VM with all necessary return contact information. Date Signed: 03/05/2019 02:29 PM Electronically Signed By:Alex Beltran
[2019-03-05] MEDS: NICOTINE POLACRILEX 2 MG GUM B PRN ×2 (16:32→20:18)
[2019-03-05] MEDS: LORazepam 0.5 MG TAB PO PRN (21:55)
--- NOTE | 2019-03-06 06:47 | SOAPPROG ---
SOAP Progress Note Assessment/Plan: Assessment: Schizoaffective Disorder, Bipolar Type, current psychosis. No improvement noted (see subjective/objective note). Patient is not safe to discharge at this time as patient continues to exhibit signs of psychosis, and express psychosis symptoms. Patient requires continued inpatient care because of current psychosis, and requires inpatient level of care to stabilize in order to no longer be gravely disabled due to mental illness. Patient exhibits persistent inability to perform essential function due to psychotic condition. Patient is unable to attend to ADLs appropriately and independently and patient is unable to communicate basic needs appropriately. Patients support system has inability to manage functional impairment at lower level of care. Treatment team consensus is patient vulnerable due to her underlying illness and discharge to homeless assisted is not a safe plan at this time. Patient has poor insight, refuses other medications, and poor judgement. Patient requires higher level of support and support needs to be in place prior to patients discharge. Patient could benefit from long-term treatment (e.g., [facility]). Patient could benefit from continued inpatient hospitalization for crisis stabilization, safety, and medication evaluation. Plan: 1. Psychotropic medications: After reviewing options, risks, and benefits patient agrees to continue current medications. Patient refusing other medication trials. Will continue with Risperidone at current dose and follow- up on Saturday to re-evaluate. No other medication changes at this time as more time is needed to determine ongoing tolerability and efficacy. Plan is to continue to observe patient for response and side effects from medications, and ongoing monitoring and evaluation. 2. Review with patient informed consent and recommendations for psychotropic medication treatment listed below 3. Labs: no additional labs at this time 4. Therapy: continue milieu and group therapy 5. Further investigation including gathering information from patients relatives and review of past case records to inform treatment plan. 6. Safety/Wellness plan and follow-up outpatient appointments to be established prior to discharge. Next steps are for patient to meet with infant childcare provider to plan a safe discharge plan and establish outpatient services for ongoing treatment. 7. Confer with inpatient treatment team regarding treatment plan. 8. Psychosocial stressors addressed through window caser 9. Legal status: [facility] 10. Consider discharge next week if patient is in stable condition, safe, and has a safe discharge plan. PSYCHOTROPIC MEDICATION TREATMENT INFORMED CONSENT and RECOMMENDATIONS: Review nature of condition, diagnosis, and prognosis. Review nature and purpose of psychotropic medication treatment. Review type of psychotropic medications being ordered. Review risk and benefits of psychotropic medication treatment. Review probable length of time patient will need to take medications. Review risk and benefits of not undergoing psychotropic medication treatment. Review alternative treatments to psychotropic medications. Review psychotropic medications contraindications, drug-drug interactions, side effects, and importance of reporting any side effects to a psychiatric provider or nurse during inpatient hospitalization, and upon discharge to patients psychiatric outpatient provider, primary care provider, or other health care giver. Review importance of asking a nurse, psychiatric provider, or primary care provider any questions or problems concerning the psychotropic medications. Verify patient understands the information that has been provided, and understands, accepts, and agrees to psychotropic medications. Review patients safety plan and importance of patient to report to staff while hospitalized if patient is ever a danger to self/others, or unable to care for self, and upon discharge, the importance for patient to contact [facility] or [facility], or go to the nearest emergency room, if patient is ever a danger to self/others, or unable to care for self. Recommend that upon discharge patient establish medication management treatment with a psychiatric provider, establishes routine therapy appointments, and follow-up with primary care provider. Verify patient understands and agrees to these recommendations. 03/06/19 06:49 Subjective: Following up with patient for evaluation of psychosis and safety. Patient states, "I am really good." Patient reports no side effects from current medications, and agrees to continue current medications. Discuss psychotropic medication options, risks, and benefits with patient. Patient states, "I am fine with these medications, and I don't want to try anything else right now." Objective: Vital Signs Temp Pulse Resp BP Pulse Ox 36.4 C 80 16 97/59 L 98 03/02/19 04:54 03/02/19 04:54 03/02/19 04:54 03/02/19 04:54 03/02/19 04:54 MSE: The patient is a well-nourished female looking stated chronological age. Attire is appropriate dress is hospital garb. Grooming status is appropriate. Ambulation is independent. Gait is normal and coordinated. Posture is normal. Eye contact is appropriate. Motor activity is appropriate with purposeful, organized, coordinated movements; with no involuntary movements. Attitude is cooperative. Patient appears distracted and does not relate well to this interviewer. Language production is unspontaneous. Rate is hesitant, latency of response is prolonged, with low volume. Articulation is clear. Patient reports mood as okay with constricted, flat and incongruent affect. Patients thought process is non-linear and illogical, with through blocking. Patient does not report suicidal/homicidal thoughts, ideas, or plans. Patient denies auditory, visual hallucinations. Patient reports delusions. Patient does appear to be attending to internal stimuli. Patients attention and concentration are poor. Patient is oriented to person, place, time. Patients insight is poor. Patients judgment is poor. - Time Spent With Patient Time Spent With Patient: 15 minutes, met with patient individually. - Pending Discharge Pending Discharge Within 24 Hours: No Pending Discharge Within 48 Hours: No ICD10 Worksheet Patient Problems: Problems Problem Status Onset Psychosis Acute Schizophrenia Acute
[2019-03-06] MEDS: risperiDONE 2 MG TAB PO SCH ×2 (08:12→20:50)
[2019-03-06] MEDS: NICOTINE POLACRILEX 2 MG GUM B PRN (08:34)
--- NOTE | 2019-03-06 12:54 | ASMTCMCOM ---
CM Note CM Note Notes: Pt. reports feeling "really, really good". Pt. stated she "slept well". Pt. reports getting enough to eat and attending groups. Pt. reports no issues with her current medications. Pt. denied SI, HI, AVH and paranoia. Pt. stated she "need to know when I'm going to discharge" stating she has a court case coming up. CC informed pt. the staff are working on discharge placement, we will try to have an update on Saturday, but the pt. will be moving to the new building on 03/10/19. Pt. reports not needing CC to do anything else. Pt. presents as alert, calm, passive, good eye contact, walking on tip toes, groomed and cooperative. Staff report pt. sleeping 8 hours and being medication compliant. CC, on Saturday, to get an update on bed availability from [facility] and to send pt's clinicals to [place] [facility] (fax:[phone]) Date Signed: 03/06/2019 12:53 PM Electronically Signed By:Danielle Kingsley
[2019-03-07] MEDS: risperiDONE 2 MG TAB PO SCH ×4 (07:43→22:19)
[2019-03-07] MEDS: NICOTINE POLACRILEX 2 MG GUM B PRN (08:48)
[2019-03-07] MEDS: LORazepam 0.5 MG TAB PO PRN (14:22)
--- NOTE | 2019-03-07 15:42 | ASMTCMCOM ---
CM Note CM Note Notes: Pt. reports feeling "not very good". Pt. stated she is "saf still have to be here". Pt. reports she "slept really good". Pt. stated she is "fasting today" adding she is "getting too fat here". Pt. reports no issues with her medications. Pt. stated groups are "really boring to me". Pt. stated she is "ready to leave". Pt. stated her mom will by flying the pt. to [place] for court on 03/12/19. Pt. stated the "only solution is to be discharged on account of being released to the retirement". Pt. stated she prefers to go to the retirement, stating "otherwise be stuck in a program and can't go to court". Pt. stated she want to get custody of her son back. Pt. denied SI, HI, AVH and paranoia. Pt. presents as alert, calm, good eye contact, less guarded, and cooperative. Staff report pt. sleeping 9.5 hours and being medication compliant. Weekday CC to send pt's clinicals to [facility] on Saturday and to also reach out to P about pt's being on the [facility] waitlist. Pt's [employer] insurance will drop on 03/08/19, and pt. will have only Medicaid. Date Signed: 03/07/2019 03:41 PM Electronically Signed By:Danielle Kingsley
--- NOTE | 2019-03-07 16:44 | SOAPPROG ---
SOAP Progress Note Assessment/Plan: Assessment: 20-year-old female presents to the emergency department by ambulance with [facility] with altered mental status. The patient was found limping along the bike path looking very disheveled and having no pants on. It is unclear if there was any associated trauma. Patient was recently discharged from 3 on 02/09/19. WEEKEND PLAN: 03/07/19 16:41 1. Patient pacing halls or sitting quietly in day area. 2. No real change or improvement in patient's condition during this admission, remains psychotic and delusional. 3. Patient is on waiting list for [facility]. 4. STC Subjective: Patient pacing in hallway. She presents quiet, pleasant and cooperative. She is becoming frustrated with the length of her hospitalization. This is similar to patient's last admission, when she opted to go to homeless snf at discharge rather than stay in hospital longer to develop a more appropriate discharge plan. Today she says, "I don't want to be here." But right now, patient has no where else to go. She is on wait list for [facility]. Objective: Vital Signs Temp Pulse Resp BP Pulse Ox 36.4 C 80 16 97/59 L 98 03/02/19 04:54 03/02/19 04:54 03/02/19 04:54 03/02/19 04:54 03/02/19 04:54 MSE: Affect: Flat Mood: "OK" TP: Disorganized, illogical TC: Denies any SI/HI , still delusional Perception: Denies AH/VH, but remains internally preoccupied Insight/Judgment: No improvement - Time Spent With Patient Time Spent With Patient: 15" - Pending Discharge Pending Discharge Within 24 Hours: No Pending Discharge Within 48 Hours: No ICD10 Worksheet Patient Problems: Problems Problem Status Onset Psychosis Acute Schizophrenia Acute
[2019-03-08] MEDS: risperiDONE 2 MG TAB PO SCH ×3 (08:07→21:00)
[2019-03-08] MEDS: NICOTINE POLACRILEX 2 MG GUM B PRN (15:28)
--- NOTE | 2019-03-08 15:34 | ASMTBHFAM ---
Notes Note: Notes: This chief writer spoke with the patient's mother, Sharon. Sharon agreed to notify the patient's supervisor pumping, Susana Sparks, and the court that the patient will not be attending her upcoming hearing. Date Signed: 03/08/2019 03:34 PM Electronically Signed By:Kalani Cedeno
--- NOTE | 2019-03-08 16:31 | SOAPPROG ---
SOAP Progress Note Assessment/Plan: Assessment: 20-year-old female presents to the emergency department by ambulance with [facility] Department with altered mental status. The patient was found limping along the bike path looking very disheveled and having no pants on. It is unclear if there was any associated trauma. Patient was recently discharged from on 02/09/19. WEEKEND PLAN: 03/07/19 16:41 1. Patient pacing halls or sitting quietly in day area. 2. No real change or improvement in patient's condition during this admission, remains psychotic and delusional. 3. Patient is on waiting list for [facility]. 4. ST 03/08/19 16:26 1. Patient is stable, no change in her condition. 2. Patient remains delusional with seriously impaired reality testing. 3. Looking for long-term placement at treatment facility. 4. ST Subjective: Patient was walking in hallways smiling, laughing and talking quietly to herself. She continues to be internally preoccupied, guarded and withdrawn. She denies any thoughts, plan or intent to hurt herself or anyone else. She told RN yesterday she didn't want to eat b/c she thought she was getting "fat," however , today she ate 100% of breakfast and lunch. Objective: Vital Signs Temp Pulse Resp BP Pulse Ox 36.4 C 80 16 97/59 L 98 03/02/19 04:54 03/02/19 04:54 03/02/19 04:54 03/02/19 04:54 03/02/19 04:54 MSE: Affect: Smiling and laughing inappropriately Mood: "OK" TP: Disorganized , illogical TC: Denies any SI/HI, still delusional Insight/Judgment: Poor - Time Spent With Patient Time Spent With Patient: 15" - Pending Discharge Pending Discharge Within 24 Hours: No Pending Discharge Within 48 Hours: No ICD10 Worksheet Patient Problems: Problems Problem Status Onset Psychosis Acute Schizophrenia Acute
[2019-03-08] MEDS: LORazepam 0.5 MG TAB PO PRN (22:10)
--- NOTE | 2019-03-09 06:39 | SOAPPROG ---
SOAP Progress Note Assessment/Plan: Assessment: Schizoaffective Disorder, Bipolar Type, current psychosis. No improvement noted (see subjective/objective note). Patient is not safe to discharge at this time as patient continues to exhibit signs of psychosis, and express psychosis symptoms. Patient requires continued inpatient care because of current psychosis, and requires inpatient level of care to stabilize in order to no longer be gravely disabled due to mental illness. Patient exhibits persistent inability to perform essential function due to psychotic condition. Patient is unable to attend to ADLs appropriately and independently and patient is unable to communicate basic needs appropriately. Patients support system has inability to manage functional impairment at lower level of care. Treatment team consensus is patient vulnerable due to her underlying illness and discharge [facility] is not a safe plan at this time. Patient has poor insight, refuses other medications, and poor judgement. Patient requires higher level of support and support needs to be in place prior to patients discharge. Patient could benefit from long-term treatment (e.g., [facility]). Patient could benefit from continued inpatient hospitalization for crisis stabilization, safety, and medication evaluation. Plan: 1. Psychotropic medications: After reviewing options, risks, and benefits patient agrees to continue current medications. Patient refusing other medication trials. Plan is to continue to observe patient for response and side effects from medications, and ongoing monitoring and evaluation. 2. Review with patient informed consent and recommendations for psychotropic medication treatment listed below 3. Labs: no additional labs at this time 4. Therapy: continue milieu and group therapy 5. Further investigation including gathering information from patients relatives and review of past case records to inform treatment plan. 6. Safety/Wellness plan and follow-up outpatient appointments to be established prior to discharge. Next steps are for patient to meet with transition of care specialist to plan a safe discharge plan and establish outpatient services for ongoing treatment. 7. Confer with inpatient treatment team regarding treatment plan. 8. Psychosocial stressors addressed through telephonic case manager 9. Legal status: [facility] 10. Consider discharge next week if patient is in stable condition, safe, and has a safe discharge plan. PSYCHOTROPIC MEDICATION TREATMENT INFORMED CONSENT and RECOMMENDATIONS: Review nature of condition, diagnosis, and prognosis. Review nature and purpose of psychotropic medication treatment. Review type of psychotropic medications being ordered. Review risk and benefits of psychotropic medication treatment. Review probable length of time patient will need to take medications. Review risk and benefits of not undergoing psychotropic medication treatment. Review alternative treatments to psychotropic medications. Review psychotropic medications contraindications, drug-drug interactions, side effects, and importance of reporting any side effects to a psychiatric provider or nurse during inpatient hospitalization, and upon discharge to patients psychiatric outpatient provider, primary care provider, or other health career development facilitator. Review importance of asking a nurse, psychiatric provider, or primary care provider any questions or problems concerning the psychotropic medications. Verify patient understands the information that has been provided, and understands, accepts, and agrees to psychotropic medications. Review patients safety plan and importance of patient to report to staff while hospitalized if patient is ever a danger to self/others, or unable to care for self, and upon discharge, the importance for patient to contact [facility] or [facility], or go to the nearest emergency room, if patient is ever a danger to self/others, or unable to care for self. Recommend that upon discharge patient establish medication management treatment with a psychiatric provider, establishes routine therapy appointments, and follow-up with primary care provider. Verify patient understands and agrees to these recommendations. 03/09/19 06:38 Subjective: Following up with patient for evaluation of psychosis and safety. Patient states, "I am really, really good." Patient reports no side effects from current medications, and agrees to continue current medications. Discuss psychotropic medication options, risks, and benefits with patient. Patient states, "I don't want to try anything else." Patient refuses other medication. Objective: Vital Signs Temp Pulse Resp BP Pulse Ox 36.4 C 80 16 97/59 L 98 03/02/19 04:54 03/02/19 04:54 03/02/19 04:54 03/02/19 04:54 03/02/19 04:54 MSE: The patient is a well-nourished female looking stated chronological age. Attire is appropriate dress is hospital garb. Grooming status is appropriate. Ambulation is independent. Gait is normal and coordinated. Posture is normal. Eye contact is appropriate. Motor activity is appropriate with purposeful, organized, coordinated movements; with no involuntary movements. Attitude is cooperative. Patient appears distracted and does not relate well to this interviewer. Language production is unspontaneous. Rate is hesitant, latency of response is prolonged, with low volume. Articulation is clear. Patient reports mood as okay with constricted, flat and incongruent affect. Patients thought process is non-linear and illogical, with through blocking. Patient does not report suicidal/homicidal thoughts, ideas, or plans. Patient denies auditory, visual hallucinations. Patient reports delusions. Patient does appear to be attending to internal stimuli. Patients attention and concentration are poor. Patient is oriented to person, place, time. Patients insight is poor. Patients judgment is poor. - Time Spent With Patient Time Spent With Patient: 15 minutes, met with patient individually. - Pending Discharge Pending Discharge Within 24 Hours: No Pending Discharge Within 48 Hours: No ICD10 Worksheet Patient Problems: Problems Problem Status Onset Psychosis Acute Schizophrenia Acute
[2019-03-09] MEDS: risperiDONE 2 MG TAB PO SCH ×2 (08:22→21:27)
[2019-03-09] MEDS ORDERED: RISPERIDONE 1 MG ODT TAB SL ONE (11:19)
--- NOTE | 2019-03-09 13:24 | ASMTCMCOM ---
CM Note CM Note Notes: The patient participated in clinical treatment team rounds. She was labile and irritable. She refused medication stating, "it is not necessary for progress. I don't have a mental illness. It creeps me out. It is cancer causing." Later, the patient called the treatment team "fucking idiots." The patient reported that she was "on a epic adventure" prior to her hospital admission. Date Signed: 03/09/2019 11:40 AM Electronically Signed By:Kalani Cedeno
[2019-03-09] MEDS: NICOTINE POLACRILEX 2 MG GUM B PRN (15:10)
[2019-03-10] MEDS: ACETAMINOPHEN 325 MG TAB PO PRN (01:29)
[2019-03-10] MEDS: NICOTINE POLACRILEX 2 MG GUM B PRN ×2 (03:34→20:17)
[2019-03-10] MEDS: risperiDONE 2 MG TAB PO SCH ×3 (07:57→20:22)
--- NOTE | 2019-03-10 08:18 | SOAPPROG ---
SOAP Progress Note Assessment/Plan: Assessment: Schizoaffective Disorder, Bipolar Type, current psychosis. No improvement noted (see subjective/objective note). Patient refusing medications. Patient is not safe to discharge at this time as patient continues to exhibit signs of psychosis, and express psychosis symptoms. Patient requires continued inpatient care because of current psychosis, and requires inpatient level of care to stabilize in order to no longer be gravely disabled due to mental illness. Patient exhibits persistent inability to perform essential function due to psychotic condition. Patient is unable to attend to ADLs appropriately and independently and patient is unable to communicate basic needs appropriately. Patients support system has inability to manage functional impairment at lower level of care. Treatment team consensus is patient vulnerable due to her underlying illness and discharge to homeless assisted is not a safe plan at this time. Patient has poor insight and poor judgement. Patient requires higher level of support and support needs to be in place prior to patients discharge. Patient could benefit from long-term treatment (e.g., [facility]). Patient could benefit from continued inpatient hospitalization for crisis stabilization, safety, and medication evaluation. Plan: 1. Psychotropic medications: After reviewing options, risks, and benefits patient refuses medications. No other medication changes at this time as more time is needed to determine ongoing tolerability and efficacy. Plan is to continue to observe patient for response and side effects from medications, and ongoing monitoring and evaluation. 2. Review with patient informed consent and recommendations for psychotropic medication treatment listed below 3. Labs: no additional labs at this time 4. Therapy: continue milieu and group therapy 5. Further investigation including gathering information from patients relatives and review of past case records to inform treatment plan. 6. Safety/Wellness plan and follow-up outpatient appointments to be established prior to discharge. Next steps are for patient to meet with director of primary care to plan a safe discharge plan and establish outpatient services for ongoing treatment. 7. Confer with inpatient treatment team regarding treatment plan. 8. Psychosocial stressors addressed through case folder 9. Legal status: [facility] 10. Consider discharge next week if patient is in stable condition, safe, and has a safe discharge plan. PSYCHOTROPIC MEDICATION TREATMENT INFORMED CONSENT and RECOMMENDATIONS: Review nature of condition, diagnosis, and prognosis. Review nature and purpose of psychotropic medication treatment. Review type of psychotropic medications being ordered. Review risk and benefits of psychotropic medication treatment. Review probable length of time patient will need to take medications. Review risk and benefits of not undergoing psychotropic medication treatment. Review alternative treatments to psychotropic medications. Review psychotropic medications contraindications, drug-drug interactions, side effects, and importance of reporting any side effects to a psychiatric provider or nurse during inpatient hospitalization, and upon discharge to patients psychiatric outpatient provider, primary care provider, or other health physician locums urgent care. Review importance of asking a nurse, psychiatric provider, or primary care provider any questions or problems concerning the psychotropic medications. Verify patient understands the information that has been provided, and understands, accepts, and agrees to psychotropic medications. Review patients safety plan and importance of patient to report to staff while hospitalized if patient is ever a danger to self/others, or unable to care for self, and upon discharge, the importance for patient to contact [facility] or [facility], or go to the nearest emergency room, if patient is ever a danger to self/others, or unable to care for self. Recommend that upon discharge patient establish medication management treatment with a psychiatric provider, establishes routine therapy appointments, and follow-up with primary care provider. Verify patient understands and agrees to these recommendations. 03/10/19 08:17 Subjective: Following up with patient for evaluation of psychosis and safety. Patient states, "I am doing good." Patient reports she is not taking medications as prescribed, and states, "I don't need to take them anymore. I no longer have a mental illness." Provide patient medication education including medication options, risks, and benefits. Patient continues to refuse medications. Objective: Vital Signs Temp Pulse Resp BP Pulse Ox 36.4 C 80 16 97/59 L 98 03/02/19 04:54 03/02/19 04:54 03/02/19 04:54 03/02/19 04:54 03/02/19 04:54 MSE: The patient is a well-nourished female looking stated chronological age. Attire is appropriate dress is hospital garb. Grooming status is appropriate. Ambulation is independent. Gait is normal and coordinated. Posture is normal. Eye contact is appropriate. Motor activity is appropriate with purposeful, organized, coordinated movements; with no involuntary movements. Attitude is cooperative. Patient appears distracted and does not relate well to this interviewer. Language production is unspontaneous. Rate is hesitant, latency of response is prolonged, with low volume. Articulation is clear. Patient reports mood as okay with constricted, flat and incongruent affect. Patients thought process is non-linear and illogical, with through blocking. Patient does not report suicidal/homicidal thoughts, ideas, or plans. Patient denies auditory, visual hallucinations. Patient reports delusions. Patient does appear to be attending to internal stimuli. Patients attention and concentration are poor. Patient is oriented to person, place, time. Patients insight is poor. Patients judgment is poor. - Time Spent With Patient Time Spent With Patient: 15 minutes, met with patient individually. - Pending Discharge Pending Discharge Within 24 Hours: No Pending Discharge Within 48 Hours: No ICD10 Worksheet Patient Problems: Problems Problem Status Onset Psychosis Acute Schizophrenia Acute
--- NOTE | 2019-03-10 13:58 | ASMTCMCOM ---
CM Note CM Note Notes: The patient moved from [address] [place] [address] [place] [address] with [facility] Inpatient Behavioral [facility]. The patient didn't have questions or concerns at this time. Date Signed: 03/10/2019 01:57 PM Electronically Signed By:Kalani Cedeon
--- NOTE | 2019-03-11 08:22 | SOAPPROG ---
SOAP Progress Note Assessment/Plan: Assessment: Schizoaffective Disorder, Bipolar Type, current psychosis. No improvement noted (see subjective/objective note). Patient refusing medications. Decompensating. Patient is not safe to discharge at this time as patient continues to exhibit signs of psychosis, and express psychosis symptoms. Patient requires continued inpatient care because of current psychosis, and requires inpatient level of care to stabilize in order to no longer be gravely disabled due to mental illness. Patient exhibits persistent inability to perform essential function due to psychotic condition. Patient is unable to attend to ADLs appropriately and independently and patient is unable to communicate basic needs appropriately. Patients support system has inability to manage functional impairment at lower level of care. Treatment team consensus is patient vulnerable due to her underlying illness and discharge to homeless longterm is not a safe plan at this time. Patient has poor insight and poor judgement. Patient requires higher level of support and support needs to be in place prior to patients discharge. Patient could benefit from long-term treatment (e.g., [facility]). Patient could benefit from continued inpatient hospitalization for crisis stabilization, safety, and medication evaluation. Plan: 1. Psychotropic medications: After reviewing options, risks, and benefits patient refuses medications. No other medication changes at this time as more time is needed to determine ongoing tolerability and efficacy. Plan is to continue to observe patient for response and side effects from medications, and ongoing monitoring and evaluation. 2. Review with patient informed consent and recommendations for psychotropic medication treatment listed below 3. Labs: no additional labs at this time 4. Therapy: continue milieu and group therapy 5. Further investigation including gathering information from patients relatives and review of past case records to inform treatment plan. 6. Safety/Wellness plan and follow-up outpatient appointments to be established prior to discharge. Next steps are for patient to meet with career development specialist to plan a safe discharge plan and establish outpatient services for ongoing treatment. 7. Confer with inpatient treatment team regarding treatment plan. 8. Psychosocial stressors addressed through bilingual case manager 9. Legal status: [facility] 10. Consider discharge next week if patient is in stable condition, safe, and has a safe discharge plan. PSYCHOTROPIC MEDICATION TREATMENT INFORMED CONSENT and RECOMMENDATIONS: Review nature of condition, diagnosis, and prognosis. Review nature and purpose of psychotropic medication treatment. Review type of psychotropic medications being ordered. Review risk and benefits of psychotropic medication treatment. Review probable length of time patient will need to take medications. Review risk and benefits of not undergoing psychotropic medication treatment. Review alternative treatments to psychotropic medications. Review psychotropic medications contraindications, drug-drug interactions, side effects, and importance of reporting any side effects to a psychiatric provider or nurse during inpatient hospitalization, and upon discharge to patients psychiatric outpatient provider, primary care provider, or other health healthcare project manager. Review importance of asking a nurse, psychiatric provider, or primary care provider any questions or problems concerning the psychotropic medications. Verify patient understands the information that has been provided, and understands, accepts, and agrees to psychotropic medications. Review patients safety plan and importance of patient to report to staff while hospitalized if patient is ever a danger to self/others, or unable to care for self, and upon discharge, the importance for patient to contact [facility] or [facility], or go to the nearest emergency room, if patient is ever a danger to self/others, or unable to care for self. Recommend that upon discharge patient establish medication management treatment with a psychiatric provider, establishes routine therapy appointments, and follow-up with primary care provider. Verify patient understands and agrees to these recommendations. 03/11/19 08:21 Subjective: Following up with patient for evaluation of psychosis and safety. Patient states, "I am good." Patient reports she is not taking medications as prescribed, and states, "I am no longer participating. I will take Celexa though." Provide patient medication education including medication options, risks, and benefits. Patient continues to refuse medications. Objective: Vital Signs Temp Pulse Resp BP Pulse Ox 36.4 C 80 16 97/59 L 98 03/02/19 04:54 03/02/19 04:54 03/02/19 04:54 03/02/19 04:54 03/02/19 04:54 PATIENT REFUSING MEDICATIONS: Pt refusing medications for several days. Consider COM. Discuss tx team today. MSE: The patient is a well-nourished female looking stated chronological age. Attire is appropriate dress is hospital garb. Grooming status is appropriate. Ambulation is independent. Gait is normal and coordinated. Posture is normal. Eye contact is appropriate. Motor activity is appropriate with purposeful, organized, coordinated movements; with no involuntary movements. Attitude is cooperative. Patient appears distracted and does not relate well to this interviewer. Language production is unspontaneous. Rate is hesitant, latency of response is prolonged, with low volume. Articulation is clear. Patient reports mood as okay with constricted, flat and incongruent affect. Patients thought process is non-linear and illogical, with through blocking. Patient does not report suicidal/homicidal thoughts, ideas, or plans. Patient denies auditory, visual hallucinations. Patient reports delusions. Patient does appear to be attending to internal stimuli. Patients attention and concentration are poor. Patient is oriented to person, place, time. Patients insight is poor. Patients judgment is poor. - Time Spent With Patient Time Spent With Patient: 15 minutes, met with patient individually. - Pending Discharge Pending Discharge Within 24 Hours: No Pending Discharge Within 48 Hours: No ICD10 Worksheet Patient Problems: Problems Problem Status Onset Psychosis Acute Schizophrenia Acute
[2019-03-11] MEDS: risperiDONE 2 MG TAB PO SCH ×2 (10:27→20:13)
--- NOTE | 2019-03-11 16:12 | ASMTCMCOM ---
CM Note CM Note Notes: The patient was notified of recent bed availability and possible transfer to [facility]. Date Signed: 03/11/2019 04:12 PM Electronically Signed By:Kalani Cedeno
--- NOTE | 2019-03-12 07:25 | SOAPPROG ---
SOAP Progress Note Assessment/Plan: Assessment: Schizoaffective Disorder, Bipolar Type, current psychosis. No improvement noted (see subjective/objective note). Patient refusing medications. Decompensating. Patient is not safe to discharge at this time as patient continues to exhibit signs of psychosis, and express psychosis symptoms. Patient requires continued inpatient care because of current psychosis, and requires inpatient level of care to stabilize in order to no longer be gravely disabled due to mental illness. Patient exhibits persistent inability to perform essential function due to psychotic condition. Patient is unable to attend to ADLs appropriately and independently and patient is unable to communicate basic needs appropriately. Patients support system has inability to manage functional impairment at lower level of care. Treatment team consensus is patient vulnerable due to her underlying illness and discharge to homeless skilled nursing is not a safe plan at this time. Patient has poor insight and poor judgement. Patient requires higher level of support and support needs to be in place prior to patients discharge. Patient could benefit from long-term treatment (e.g., [facility]). Patient could benefit from continued inpatient hospitalization for crisis stabilization, safety, and medication evaluation. Plan: 1. Psychotropic medications: After reviewing options, risks, and benefits patient refuses medications. No other medication changes at this time as more time is needed to determine ongoing tolerability and efficacy. Plan is to continue to observe patient for response and side effects from medications, and ongoing monitoring and evaluation. 2. Review with patient informed consent and recommendations for psychotropic medication treatment listed below 3. Labs: no additional labs at this time 4. Therapy: continue milieu and group therapy 5. Further investigation including gathering information from patients relatives and review of past case records to inform treatment plan. 6. Safety/Wellness plan and follow-up outpatient appointments to be established prior to discharge. Next steps are for patient to meet with wound care center consultant to plan a safe discharge plan and establish outpatient services for ongoing treatment. 7. Confer with inpatient treatment team regarding treatment plan. 8. Psychosocial stressors addressed through employment case manager 9. Legal status: [facility] 10. Consider discharge next week if patient is in stable condition, safe, and has a safe discharge plan. PSYCHOTROPIC MEDICATION TREATMENT INFORMED CONSENT and RECOMMENDATIONS: Review nature of condition, diagnosis, and prognosis. Review nature and purpose of psychotropic medication treatment. Review type of psychotropic medications being ordered. Review risk and benefits of psychotropic medication treatment. Review probable length of time patient will need to take medications. Review risk and benefits of not undergoing psychotropic medication treatment. Review alternative treatments to psychotropic medications. Review psychotropic medications contraindications, drug-drug interactions, side effects, and importance of reporting any side effects to a psychiatric provider or nurse during inpatient hospitalization, and upon discharge to patients psychiatric outpatient provider, primary care provider, or other health care management associate. Review importance of asking a nurse, psychiatric provider, or primary care provider any questions or problems concerning the psychotropic medications. Verify patient understands the information that has been provided, and understands, accepts, and agrees to psychotropic medications. Review patients safety plan and importance of patient to report to staff while hospitalized if patient is ever a danger to self/others, or unable to care for self, and upon discharge, the importance for patient to contact [facility] or [facility], or go to the nearest emergency room, if patient is ever a danger to self/others, or unable to care for self. Recommend that upon discharge patient establish medication management treatment with a psychiatric provider, establishes routine therapy appointments, and follow-up with primary care provider. Verify patient understands and agrees to these recommendations. 03/12/19 07:25 Subjective: Following up with patient for evaluation of psychosis and safety. Patient states, "I am good." Patient reports she is not taking medications as prescribed, and states, 'I am not going to take them any longer." Provide patient medication education including medication options, risks, and benefits. Patient continues to refuse medications. Objective: Vital Signs Temp Pulse Resp BP Pulse Ox 36.4 C 80 16 97/59 L 98 03/02/19 04:54 03/02/19 04:54 03/02/19 04:54 03/02/19 04:54 03/02/19 04:54 PATIENT REFUSING MEDICATIONS: Pt refusing medications for several day. Pursue COM. MSE: The patient is a well-nourished female looking stated chronological age. Attire is appropriate dress is hospital garb. Grooming status is appropriate. Ambulation is independent. Gait is normal and coordinated. Posture is normal. Eye contact is appropriate. Motor activity is appropriate with purposeful, organized, coordinated movements; with no involuntary movements. Attitude is cooperative. Patient appears distracted and does not relate well to this interviewer. Language production is unspontaneous. Rate is hesitant, latency of response is prolonged, with low volume. Articulation is clear. Patient reports mood as okay with constricted, flat and incongruent affect. Patients thought process is non-linear and illogical, with through blocking. Patient does not report suicidal/homicidal thoughts, ideas, or plans. Patient denies auditory, visual hallucinations. Patient reports delusions. Patient does appear to be attending to internal stimuli. Patients attention and concentration are poor. Patient is oriented to person, place, time. Patients insight is poor. Patients judgment is poor. - Time Spent With Patient Time Spent With Patient: 15 minutes, met with patient individually. - Pending Discharge Pending Discharge Within 24 Hours: No Pending Discharge Within 48 Hours: No ICD10 Worksheet Patient Problems: Problems Problem Status Onset Psychosis Acute Schizophrenia Acute
[2019-03-12] MEDS: NICOTINE POLACRILEX 2 MG GUM B PRN (08:28)
[2019-03-12] MEDS: risperiDONE 2 MG TAB PO SCH (08:30)
--- NOTE | 2019-03-12 11:48 | BDS ---
[f rep st] BEHAVIORAL HEALTH DISCHARGE SUMMARY REASON FOR ADMISSION: From the ED note dated 02/12/2019, the patient presented to the emergency department by ambulance with [facility] with altered mental status. The patient was found limping along bike path, looking very disheveled and having no pants on. The patient refused to answer questions in the emergency department. The patient was admitted involuntarily and on an M1 hold due to being gravely disabled due to an underlying mental illness. The patient was admitted for safety, crisis stabilization, and medication evaluation. ADMITTING DIAGNOSIS: Schizophrenia. ADMISSION PHYSICAL EXAM: The patient was seen on 02/13/2019, for a history and physical consultation for medical clearance for inpatient psychiatric hospitalization and treatment. The patient was medically cleared for inpatient psychiatric hospitalization and treatment. For further details, please refer to consultation document dated 02/13/2019. ADMISSION LABS: 1. CBC within normal limits, except white blood cells were elevated at 12.37, hematocrit was elevated at 48.5, neutrophils elevated at 76.3, absolute neutrophils were elevated at 9.43. 2. BMP within normal limits. 3. TSH within normal limits at 1.290. MAJOR PROCEDURES OR TESTS: None. HOSPITAL COURSE: The most prominent symptoms and behaviors while the patient was here were disorganized thought process, disorganized behavior. The patient was answering interview questions illogically and nonsensically. Thought blocking noted. The patient also was irritable and agitated at times. Risperidone was started and titrated to 3 mg p.o. b.i.d. to target psychosis symptoms, was tolerated with no report of side effects and with fair response. The patient did take medications as prescribed; however, the patient has not been taking medications as prescribed for the last 4 days, the patient refusing medications at time of discharge. The patient has shown very little improvement throughout the course of her hospitalization. The patient's response to treatment has been fair. There were no adverse or unexpected results of treatment. The patient was safe throughout her stay. At time of discharge, the patient is not active or engaged in treatment. The patient was appropriate with staff throughout the course of her hospitalization. The treatment team consensus is the patient is safe to discharge today and be transferred to [facility] for continued psychiatric treatment. MEDICATION RECOMMENDATION: Patient has failed two trials of antipsychotics. First hospitalization, Zyprexa 20 mg po QHS, little to no response. Second and current hospitalization, Risperdal M-tab 3 mg po BID with little to no improvement; improvement mostly in degree of agitation. Continued disorganized thought process and responding to internal stimuli. Consider Clozaril. CONDITION ON DISCHARGE: The patient is safe to discharge today to be transferred to [facility]. The patient's level of risk at time of discharge is low. MENTAL STATUS EXAM: The patient is a well-nourished female, looking stated chronological age. Attire is appropriate. Dress is casual. Grooming status is appropriate. Ambulation is independent. Gait is normal and coordinated. Posture is normal and relaxed. Eye contact is appropriate, at times avoided. Motor activity is appropriate with purposeful, organized, coordinated movements with no involuntary movements noted. Attitude is uncooperative, defensive and guarded at times, irritable. The patient appears disinterested and distractible and does not relate well to this interviewer. Language production is spontaneous. Rate is hesitant. Latency of response is prolonged with irritable tone. Articulation is clear. The patient reports mood as "okay" with constricted, flat, inappropriate, and incongruent affect. The patient's thought process is nonlinear and illogical with loose associations, thought blocking. The patient does not report suicidal or homicidal thoughts, ideas, or plans. The patient denies auditory or visual hallucinations. The patient does report delusions to this interviewer and also throughout the course of her hospitalization. The patient does appear to be attending to internal stimuli. The patient is oriented to person, place. The patient's attention and concentration are poor. The patient's insight and judgment are poor. The patient did not report any side effects from the medications prescribed to her throughout the course of her hospitalization. DISCHARGE DIAGNOSIS: Schizophrenia. CURRENT MEDICATIONS: The patient currently refusing medications at time of discharge. The patient's most recent psychotropic medication was risperidone 3 mg p.o. b.i.d.; however, the patient has been refusing to take this medication for several days. The patient had a fair response to risperidone. There are no prescriptions provided to the patient at time of discharge. DISPOSITION: The patient left hospital independently and voluntarily, with plans to be transported to [facility] for admission. FOLLOWUP: [facility] LEGAL COURSE: The patient was admitted on M1 hold for involuntary inpatient psychiatric hospitalization and treatment. The patient was discharged today and was placed on a short-term certification. The patient's short-term certification will be transferred to [facility]. ATTITUDE AT TIME OF DISCHARGE: The patient continues to be irritable and agitated at times, refusing medications. The patient reports no concerns regarding her transfer from this facility to [facility]. LABS AND STUDIES: There were no pending labs or studies at time of discharge. ADVANCE DIRECTIVES: There were no advance directives on file, and the patient was full code during this hospitalization. /[id number]/MODL MTDD
== END 2019-03-12 14:10 | DRG 885 ==
LOC: EDBD 13:43 → BBEH 23:43 → MERGE 23:43 → BBEH 03-03 17:13
PROVIDERS: ADMIT Psychiatry & Neurology Behavioral Neurology & Neuropsychiatry; ATTEND Psychiatry & Neurology Behavioral Neurology & Neuropsychiatry
DX: F25.0 Schizoaffective disorder, bipolar type (principal); T43.506A Underdosing of unspecified antipsychotics and neuroleptics, initial encounter; F43.10 Post-traumatic stress disorder, unspecified; F12.959 Cannabis use, unspecified with psychotic disorder, unspecified; Z59.0 Homelessness
CPT/HCPCS: 86694-90; 86705-90; G0472; G0480